=== PATIENT | male | born 1955 | race Caucasian/White ===

== ENCOUNTER 2017-12-13 22:04 | Observation (INO) ==
--- NOTE | 2017-12-13 22:25 | Emergency Department Note ---
Disposition Clinical Impression: Near syncope Disposition: Still a Patient Referrals: Africa Alarcon, COUNTER MOLDER [Primary Care Provider] - General Adult HPI - General Chief complaint: ED Dizziness Stated complaint: chest pain Time Seen by Provider: 12/13/17 22:16 Source: patient Limitations: no limitations - History of Present Illness HPI Narrative: Attestation note ED attending note I examined this patient and my medical decision-making was reviewed with the emergency medicine resident Dr. Hola Chung. I agree with the documented findings, disposition and treatment plan as described except to the extent set forth below. Briefly: 62-year-old male brought in by EMS for near syncope. Patient who was at a football [employer] [place] [employer] felt poorly for the past several days with some lightheadedness feels like it is "ringing" whether he opens or closes eyes takes his glasses on and off. Said he recently for the past year had a chemical stress test which was negative at [facility]. Patient had EKG read without Cardiologic assistance shows no acute ischemic changes. Patient to get head CT troponin screening labs chest x-ray. Admission anticipated. Disposition pending. Pain Scale: 8 - Related Data Home Medications Medication Instructions Recorded Confirmed Albuterol Sulfate [Proair Hfa] 2 puff IH Q4H PRN 07/24/16 07/24/16 Atorvastatin Calcium [Lipitor] 20 mg PO DAILY 07/24/16 07/24/16 Colesevelam HCl [Welchol] 625 mg PO TID 07/24/16 07/24/16 Desipramine [Norpramine] 100 mg PO HS 07/24/16 07/24/16 Dicyclomine [Bentyl] 40 mg PO QID 07/24/16 07/24/16 Gabapentin [Neurontin] 600 mg PO TID 07/24/16 07/24/16 Ibuprofen [Motrin] 200 mg PO Q8H PRN 07/24/16 07/24/16 Niacin (24 HR) [Niaspan] 500 mg PO HS 07/24/16 07/24/16 OxyCODONE Immed Rel [Roxicodone 10 10 mg PO HS PRN 07/24/16 07/24/16 MG] Sucralfate [Carafate] 1 gm PO QIDAC 07/24/16 07/24/16 Tiotropium [Spiriva] 18 mcg IH 0700 07/24/16 07/24/16 Tizanidine HCl 8 mg PO HS PRN 07/24/16 07/24/16 diazePAM [Valium] 5 mg PO TID PRN 07/24/16 07/24/16 Allergies Allergy/AdvReac Type Severity Reaction Status Date / Time No Known Allergies Allergy Verified 07/24/16 08:13 Past Medical History - Past Medical History Medical history: Reports: arthritis, asthma, COPD, GERD, hyperlipidemia Surgical history: Reports: appendectomy, cholecystectomy, herniorrhaphy Psychiatric history: Reports: no psych history - Social History Smoking Status: Former smoker Smokeless Tobacco Status: No Alcohol use: Reports: occasionally Drug use: Reports: none Physical Exam - General Limitations: no limitations General appearance: alert, in no apparent distress Course Vital Signs Temperature 98.7 F 12/13/17 22:13 Pulse Rate 93 12/13/17 22:13 Respiratory Rate 13 12/13/17 22:13 Blood Pressure 151/113 12/13/17 22:13 O2 Sat by Pulse Oximetry 99 12/13/17 22:13 Temperature 98.7 F 12/13/17 22:13 Pulse Rate 93 12/13/17 22:13 Respiratory Rate 13 12/13/17 22:13 Blood Pressure 151/113 12/13/17 22:13 O2 Sat by Pulse Oximetry 99 12/13/17 22:13 Oxygen Delivery Oxygen Delivery Room Air
--- NOTE | 2017-12-13 22:26 | Emergency Department Note ---
Disposition Clinical Impression: Near syncope, Visual changes, Palpitations Disposition: Admitted As Inpatient Condition: Good Referrals: Africa Alarcon, LAMINATION TECHNICIAN [Primary Care Provider] - Forms: ED Satisfaction Letter Time of Disposition: 00:30 General Adult HPI - General Chief complaint: ED Dizziness Stated complaint: chest pain Time Seen by Provider: 12/13/17 22:16 Source: patient, EMS Mode of arrival: EMS Limitations: no limitations Nursing Notes Reviewed: Yes Vital Signs Reviewed: Yes - History of Present Illness HPI Narrative: Patient is a 62-year-old male with past medical history of Parkinson's, chronic tremors of the right upper extremity. He presents today due to concern for lightheadedness, near-syncope, visual changes, palpitations. Patient states that he was at an outside ballgame, had been cooking outside. He states that he sat down, was watching the game and then noticed that he started to have what he describes as "rain" in his vision. Denies black spots, says that it looks more like "hazy rain". Denies any other numbness, tingling, weakness. Denies any headache, fevers, chest pain, shortness of breath, nausea, vomiting, abdominal pain. Denies any slurred speech or facial droop. He does admit that he had some palpitations but denies any overt chest pain. He says that he felt lightheaded during this episode and felt as though he was going to pass out. The lightheadedness is now resolved but he still has visual changes and occasional palpitations. Denies any previous cardiac history. He had a negative stress test about a year ago at [facility]. Pain Scale: 8 - Related Data Home Medications Medication Instructions Recorded Confirmed Albuterol Sulfate [Proair Hfa] 2 puff IH Q4H PRN 07/24/16 07/24/16 Atorvastatin Calcium [Lipitor] 20 mg PO DAILY 07/24/16 07/24/16 Colesevelam HCl [Welchol] 625 mg PO TID 07/24/16 07/24/16 Desipramine [Norpramine] 100 mg PO HS 07/24/16 07/24/16 Dicyclomine [Bentyl] 40 mg PO QID 07/24/16 07/24/16 Gabapentin [Neurontin] 600 mg PO TID 07/24/16 07/24/16 Ibuprofen [Motrin] 200 mg PO Q8H PRN 07/24/16 07/24/16 Niacin (24 HR) [Niaspan] 500 mg PO HS 07/24/16 07/24/16 OxyCODONE Immed Rel [Roxicodone 10 10 mg PO HS PRN 07/24/16 07/24/16 MG] Sucralfate [Carafate] 1 gm PO QIDAC 07/24/16 07/24/16 Tiotropium [Spiriva] 18 mcg IH 0700 07/24/16 07/24/16 Tizanidine HCl 8 mg PO HS PRN 07/24/16 07/24/16 diazePAM [Valium] 5 mg PO TID PRN 07/24/16 07/24/16 Allergies Allergy/AdvReac Type Severity Reaction Status Date / Time No Known Allergies Allergy Verified 07/24/16 08:13 All systems ED: reviewed and negative except as stated. Constitutional: Denies: fever Eyes: Reports: vision change Cardiovascular: Reports: palpitations. Denies: chest pain Respiratory: Denies: cough, dyspnea Gastrointestinal: Denies: abdominal pain, nausea, vomiting, diarrhea Genitourinary: Denies: urgency, dysuria Neurological: Reports: other (light headedness). Denies: headache, weakness, numbness, paresthesias Past Medical History - Past Medical History Attestation: Yes The following information was validated with the patient. Medical history: Reports: arthritis, asthma, COPD, GERD, hyperlipidemia Surgical history: Reports: appendectomy, cholecystectomy, herniorrhaphy Psychiatric history: Reports: no psych history - Social History Smoking Status: Former smoker Smokeless Tobacco Status: No Alcohol use: Reports: occasionally Drug use: Reports: none Physical Exam - General Limitations: no limitations General appearance: alert, in no apparent distress - Head Head exam: atraumatic, normocephalic, normal inspection - Eye Eye exam: Present: normal appearance, PERRL, EOMI - ENT ENT exam: normal exam, normal oropharynx, mucous membranes moist - Neck Neck exam: Present: normal inspection, full ROM, trachea midline - Chest Chest inspection: Present: normal inspection, symmetric chest wall rise - Respiratory Respiratory exam: Present: normal lung sounds bilaterally - Cardiovascular Cardiovascular exam: Present: regular rate, normal rhythm, normal heart sounds - Abdominal Exam Abdominal exam: Present: soft, Non-Tender. Absent: tenderness, distention, guarding, rebound, rigidity - Extremities Exam Extremities exam: Present: normal inspection, full ROM. Absent: tenderness, pedal edema - Neurological Exam Neurological exam: Present: alert, oriented X3, CN II-XII intact - Expanded Neurological Exam Patient oriented to: Present: person, place, time Speech: Present: fluid speech Cranial nerves: EOM function (II, III, IV, ): Normal, facial sensation (V): Normal, facial palsy (VII): Normal, spinal accessory function (XI): Normal, tongue deviation (XII): Normal Cerebellar function: finger to nose: Normal Motor strength - LUE: 5/5 Motor strength - RUE: 5/5 Motor strength - LLE: 5/5 Motor strength - RLE: 5/5 Sensory exam upper extremity: light touch: Normal Sensory exam lower extremity: light touch: Normal Coma Scale Eye Opening: Spontaneous Coma Scale Motor Response: Obeys Commands Coma Scale Verbal Response: Oriented Coma Scale Total: 15 - Psychiatric Psychiatric exam: Present: normal mood, flat affect - Skin Skin exam: Present: warm, dry, intact, normal color Course Course Narrative: Patient was mildly hypertensive on presentation. Otherwise, the rest of the vitals were within normal limits. NIH of 0. Patient does have subjective visual change of "hazy rain" but no hemianopsia. Otherwise, the rest of the physical exam was within normal limits. No focal neurologic deficits. Patient' s extremity tremor on the right, this is chronic for the patient. EKG performed and showed normal sinus rhythm with no acute ST changes. Performed chest x-ray, basic blood work, troponin level. Also obtain CT of the head. Currently, patient feels very fatigued. We will likely have to admit for further workup for palpitations and near syncope, vision changes. 23:30 chest xray shows emphysematous changes. Otherwise, no other acute cardiac pulmonary process. Head CT negative for any acute intracranial process. Troponin negative. No other major lab abnormality. Will admit for further chest pain/near syncope workup, workup for vision changes that will likely require MRI for further assessment. Chest X-Ray 12/13/17 22:17 IMPRESSION: Low lung volumes with bibasilar vascular crowding and underaeration. Pneumonitis is a consideration. Pulmonary sequela typical of that seen with smoking, including emphysema. Correlate with clinical history. Calcific atherosclerotic disease aorta. D/ / Nahum Stern / Nahum Stern Interpreting Provider: Nahum Stern Head CT 12/13/17 22:17 IMPRESSION: No acute intracranial abnormality. D/ / Vitaliy Mccoy MD / Vitaliy Mccoy MD Interpreting Provider: Vitaliy Mccoy MD Vital Signs Temperature 98.7 F 12/13/17 22:13 Pulse Rate 93 12/13/17 22:13 Respiratory Rate 13 12/13/17 22:13 Blood Pressure 151/113 12/13/17 22:13 O2 Sat by Pulse Oximetry 99 12/13/17 22:13 Temperature 98.7 F 12/13/17 22:13 Pulse Rate 78 12/14/17 00:00 Respiratory Rate 14 12/14/17 00:00 Blood Pressure 137/76 12/14/17 00:00 O2 Sat by Pulse Oximetry 97 12/14/17 00:00 Oxygen Delivery Oxygen Delivery Nasal Cannula Medical Decision Making - [facility] Narrative Medical decision making narrative: Patient was mildly hypertensive on presentation. Otherwise, the rest of the vitals were within normal limits. NIH of 0. Patient does have subjective visual change of "hazy rain" but no hemianopsia. Otherwise, the rest of the physical exam was within normal limits. No focal neurologic deficits. Patient' s extremity tremor on the right, this is chronic for the patient. EKG performed and showed normal sinus rhythm with no acute ST changes. Performed chest x-ray, basic blood work, troponin level. Also obtain CT of the head. Currently, patient feels very fatigued. We will likely have to admit for further workup for palpitations and near syncope, vision changes. 23:30 chest xray shows emphysematous changes. Otherwise, no other acute cardiac pulmonary process. Head CT negative for any acute intracranial process. Troponin negative. No other major lab abnormality. Will admit for further chest pain/near syncope workup, workup for vision changes that will likely require MRI for further assessment. - Medical Records Medical records reviewed: Yes I reviewed the patient's medical records. - Lab Data Lab results reviewed: Yes I reviewed the patient's lab results. Result diagrams: 12/13/17 22:27 12/13/17 22:27 Lab Results 12/13/17 12/13/17 12/13/17 Range/Units 22:17 22:27 22:27 WBC 6.7 (4.3-11.1) K/mcL RBC 5.58 H (4.19-5.50) M/mcL Hgb 15.7 (12.9-16.9) g/dL Hct 46.3 (37.5-50.1) % MCV 83.0 (83.0-100.0) fL MCH 28.1 (28.0-33.3) pg MCHC 33.9 (31.6-35.5) g/dL RDW 14.6 H (11.5-14.5) % Plt Count 226 (140-400) K/mcL MPV 10.6 (9.4-12.4) fL Immature Gran % 0.3 (0-4) % Seg Neutrophils % 64.7 % Lymphocytes % 23.4 % Monocytes % 10.2 % Eosinophils % 1.0 % Basophils % 0.4 % Neutrophils # 4.3 (1.6-8.9) K/mcL Lymphocytes # 1.6 (0.6-4.6) K/mcL Monocytes # 0.7 (0.0-1.3) K/mcL Eosinophils # 0.1 (0.0-0.6) K/mcL Basophils # 0.0 (0.0-0.2) K/mcL PT 11.3 (9.4-12.1) Seconds INR 1.0 APTT 33.1 (26.0-36.0) Seconds Sodium 141 (136-145) mEq/L Potassium 3.5 (3.5-5.1) mEq/L Chloride 113 H (98-107) mEq/L Carbon Dioxide 19 L (23-29) mEq/L BUN 19 (8-23) mg/dL Creatinine 1.12 (0.70-1.30) mg/dL Est GFR ( Amer) > 60 (> 60) Est GFR (Non-Af Amer) > 60 (> 60) BUN/Creatinine Ratio 17 (6-26) Glucose 107 H (70-105) mg/dL Calculated Osmolality 295 (280-300) Calcium 9.4 (8.6-10.3) mg/dL Troponin I < 0.03 (< 0.04) ng/mL - Radiology Data Radiology results reviewed: Yes I reviewed the patient's radiology results. Chest X-Ray 12/13/17 22:17 IMPRESSION: Low lung volumes with bibasilar vascular crowding and underaeration. Pneumonitis is a consideration. Pulmonary sequela typical of that seen with smoking, including emphysema. Correlate with clinical history. Calcific atherosclerotic disease aorta. D/ / Nahum Stern / Nahum Stern Interpreting Provider: Nahum Stern Head CT 12/13/17 22:17 IMPRESSION: No acute intracranial abnormality. D/ / Vitaliy Mccoy MD / Vitaliy Mccoy MD Interpreting Provider: Vitaliy Mccoy MD - EKG Data EKG #1 EKG attestation: Yes I reviewed and interpreted this EKG. EKG results narrative: 12/13/2017 at 23:05. Normal sinus rhythm. Heart rate 92. KS 136. QRS 0.1. QTC 459. Normal axis. No acute ST elevation or depression. No obvious signs of Aujzf-Khgdwtruf-Pspbs or Brugada. Juan Jose - Juan Jose Situation: Demographics, MOA Background: Presenting Complaint, Relevant PMH, Meds, & Allergies Assessment: Vital Signs, Course and respsone to treatment, Exam Concerns, Patient/Family Expectation, Pertinant Lab Results Recommendation: Barrier(s) to disposition, Recommendation based on pending studies, treatments, or consults [email or web address].RBecky Report Given to: Dr. Shannen Ingram Repor Time: 00:30 NIH Stroke Scale - Level of Consciousness LOC: Alert - LOC Questions LOC Questions: Answers both correctly - LOC Commands LOC Commands: Performs both correctly - Best Gaze Best Gaze: Normal - Visual Visual: No visual loss - Facial Palsy Facial Palsy: Normal - Motor Arms Motor Arm-Left: No drift for 10 seconds Motor Arm-Right: No drift for 10 seconds - Motor Legs Motor Leg-Left: No drift for 5 seconds Motor Leg-Right: No drift for 5 seconds - Limb Ataxia Limb Ataxia: Absent of affected limb too weak to perform exam - Sensory Sensory: Normal - Best Language Best Language: No aphasia - Dysarthria Dysarthria: Normal - Extinction and Inattention Extinction and Inattention: Normal - NIHSS Total Score NIHSS Total Score: 0
[2017-12-13 22:35] LABS: Basophils % 0.4 %; Eosinophils # 0.1 K/mcL (0.0-0.6); Hematocrit 46.3 % (37.5-50.1); Hemoglobin 15.7 g/dL (12.9-16.9); Immature Granulocytes % 0.3 % (0-4); Lymphocytes # 1.6 K/mcL (0.6-4.6); Lymphocytes % 23.4 %; Mean Corpuscular HGB Conc 33.9 g/dL (31.6-35.5); Mean Corpuscular Hemoglobin 28.1 pg (28.0-33.3); Mean Platelet Volume 10.6 fL (9.4-12.4); Monocytes # 0.7 K/mcL (0.0-1.3); Monocytes % 10.2 %; Neutrophils # 4.3 K/mcL (1.6-8.9); Platelet Count 226 K/mcL (140-400); Red Blood Count 5.58 M/mcL (4.19-5.50); Red Cell Distribution Width 14.6 % (11.5-14.5); Segmented Neutrophils % 64.7 %
[2017-12-13 22:41] LABS: Prothrombin Time 11.3 Seconds (9.4-12.1)
[2017-12-13 22:44] LABS: Activated Partial Thrombo Time 33.1 Seconds (26.0-36.0)
[2017-12-13 22:57] LABS: BUN/Creatinine Ratio 17 (6-26); Blood Urea Nitrogen 19 mg/dL (8-23); Calcium 9.4 mg/dL (8.6-10.3); Carbon Dioxide 19 mEq/L (23-29); Chloride 113 mEq/L (98-107); Glucose 107 mg/dL (70-105); Osmolality,Calculated 295 (280-300); Potassium 3.5 mEq/L (3.5-5.1); Sodium 141 mEq/L (136-145); Troponin I < 0.03 ng/mL (< 0.04); eGFR For Non-African Americans > 60 (> 60)
[2017-12-14] MEDS ORDERED: Naloxone 0.4 MG/ML INJ IVP PRN ×2 (02:15→03:13)
[2017-12-14] MEDS ORDERED: tiZANidine 4 MG TABLET PO PRN (03:42)
[2017-12-14] MEDS ORDERED: Acetaminophen/Aspirin/Caffeine TABLET PO PRN (03:46)
--- NOTE | 2017-12-14 03:58 | Internal Med History&Physical ---
Addendum entered and electronically signed by Virginia De La Rosa DO 12/14/17 10: 19: Will not consult cardiology at this time as there is no evidence of cardiac issues. Consider consult if echocardiogram returns are concerning. Original Note: Date of Encounter: 12/14/17 Time of Encounter: 02:45 Internal Medicine - H&P: HPI Chief complaint: vision changes Admitted From: Home Plans for Post Hospital Care: Home History of present illness: Mr. Ann is a 62 year old male who presents to ED with a complaint of vision changes. It occured this evening and have been constant. 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 He has never experienced this in the past. He describes himself feeling like he was "floating " but denies feeling of dizziness, lightheadedness, LOC. His vision changes he describes as "it looks like it is raining" and is still present. While he was driving home, he did start to become confused and feels like his speech is slurred but his has not noticed this. He denies any symptoms of numbness, tingling, paresthesias, fevers, chills, nausea, vomiting. In the ED, head CT was performed and showed no acute process. Vitals and labs were unremarkable except for mild tachycardia in the 90s. EKG shows NSR with no evidence of ST changes. Of note, within the past year, he has had a Pharm stress in [place] which he states was wnl. Echocardiogram done at [facility] he states was significant for mild diastolic dysfunction. He can not remember why he has had these tests performed but denies any cardiac history other than HLD. PMHx include parkinsons disease, HLD, GERD, ?COPD Past Med Surg Social Fam HX - Past Medical History Medical history: arthritis, asthma, COPD, GERD, hyperlipidemia Additional medical history: ARREGUIN. 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 Left Knee. Left rotator cuff - Social History Smoking Status: Former smoker Smokeless Tobacco Status: No Alcohol use: none Drug use: none - Family History Mother Living Status: Still Living Internal Medicine - H&P: Meds Albuterol Sulfate [Proair Hfa] 2 puff IH Q4H PRN 07/24/16 [History] Atorvastatin Calcium [Lipitor] 20 mg PO DAILY 07/24/16 [History] Desipramine [Norpramine] 100 mg PO HS 07/24/16 [History] Dicyclomine [Bentyl] 40 mg PO QID 07/24/16 [History] Gabapentin [Neurontin] 600 mg PO TID 07/24/16 [History] Niacin (24 HR) [Niaspan] 500 mg PO HS 07/24/16 [History] Tizanidine HCl 8 mg PO HS PRN 07/24/16 [History] diazePAM [Valium] 5 mg PO TID PRN 07/24/16 [History] Cevimeline HCl [Evoxac] 30 mg PO TID 12/14/17 [History] Meloxicam [Mobic] 15 mg PO DAILY 12/14/17 [History] Promethazine [Phenergan] 25 mg PO Q6HR PRN 12/14/17 [History] Topiramate [Topamax] 50 mg PO BID 12/14/17 [History] rOPINIRole [Requip] 1 mg PO TID 12/14/17 [History] 3 Allergy/AdvReac Type Severity Reaction Status Date / Time No Known Allergies Allergy Verified 07/24/16 08:13 All Systems PM: A 10-system review of systems was performed and is negative for pertinent findings except as documented above in the HPI. - Constitutional Constitutional: excessive sweating, night sweats, no chills, no fever(s), no lethargy, no weakness - EENT Eyes: change in vision, no decreased night vision, no diplopia, no loss of vision, no pain Ears: as per HPI Nose, mouth and throat: as per HPI - Cardiovascular Cardiovascular ROS IM: palpitations, no chest pain, no diaphoresis, no dyspnea, no dyspnea on exertion, no edema, no irregular heart rhythm, no lightheadedness , no syncope - Respiratory Respiratory: no cough, no dyspnea, no dyspnea on exertion, no wheezing - Gastrointestinal Gastrointestinal: no abdominal pain, no nausea, no vomiting - Musculoskeletal Musculoskeletal ROS IM: no myalgias, no numbness, no tingling - Neurological Neurological ROS: confusion, disequilibrium, headache(s) (chronic), lack of coordination, tremor(s) (RUE, chronic), no dizziness, no focal weakness, no numbness, no paresthesias, no radicular pain, no tingling, no vertigo, no weakness - Constitutional Vitals: Temp Pulse Resp BP Pulse Ox 97.8 F 81 18 175/115 99 12/14/17 01:58 12/14/17 01:58 12/14/17 01:58 12/14/17 02:00 12/14/17 02:23 General appearance: Present: A&O X 3, pleasant, answers questions appropriately Exam: as below - Head Head exam: Present: atraumatic, normal inspection, normocephalic - Eye Eye exam: Present: EOMI, normal appearance, PERRL. Absent: nystagmus, scleral icterus Pupils: Present: normal accommodation, PERRL - ENT ENT exam: Present: mucous membranes moist - Neck Neck exam general surgery: Present: normal inspection, supple, trachea midline - Respiratory Respiratory exam: Present: CTAB. Absent: accessory muscle use, rales, respiratory distress, rhonchi, wheezes - Cardiovascular Cardiovascular exam: Present: RRR, +S1, +S2. Absent: diastolic murmur, systolic murmur - GI/Abdominal GI/Abdominal exam: Present: normal bowel sounds, soft. Absent: tenderness - Extremities Exam Extremities exam: Present: normal inspection, radial pulses palpable and symmetrical. Absent: cyanotic, pedal edema, tenderness - Neurological Exam Neurological exam: Present: alert, CN II-XII intact, oriented X3, strengths equal and symetr throughout. Absent: no focal deficits, pronater drift, facial droop, speech deficit Additional comments: sensory defecit on right face but states this is chronic - Expanded Neurological Exam Neuro motor strength exam: LUE: 5, RUE: 5, LLE: 4, RLE: 5 - Psychiatric Psychiatric exam: Present: anxious - Skin Skin exam: Present: dry, warm Internal Med - H&P Results - Labs CBC & Chem 7: 12/14/17 04:42 12/14/17 04:42 - Assessment and plan (1) Visual changes Current Visit: Yes Status: Acute Assessment and plan: Unclear etiology at this time--possibly d/t embolic/ischemic event, consider medication interactions. Described as looking like it's raining. Sudden onset this evening. Vision change unresolved at this time. Head CT negative for acute intracranial abnormalities Will order MRI, pending. . Workup for possible cardiovascular origin--serial troponins (first troponin negative), echocardiogram--had echo @ [facility] within the last year, pt was told it was a very minor dystolic dysfunction. Will obtain cartotid ultrasound Consult to cardiology and neurology, appreciate recommendations. (2) Hypertension Current Visit: Yes Status: Acute Assessment and plan: Denies h/o HTN. Checks BP at home and is normally 120's systolic / 80's diastolic. Hypertensive on arrival, remains hypertensive with recent reading 163/92 Will not add medication at this time as ischemic event is in the differential and will allow for permissive HTN Qualifiers: Hypertension type: unspecified Qualified Code(s): I10 - Essential (primary ) hypertension (3) Palpitations Current Visit: Yes Status: Acute Assessment and plan: EKG shows NSR, regular rate, no acute ST elevations or depressions Initial troponin negative, will trend Check TSH Continuous cardiac monitoring, will obtain echocardiogram Cardiology consult (4) Parkinson's disease Current Visit: Yes Status: Acute Assessment and plan: Questionable history, follow with neurologist as outpatient Patient states he has a resting tremor and this can be attributed to PD per neurologist. Will continue home ropinerol (5) Hyperlipidemia Current Visit: Yes Status: Chronic Assessment and plan: Continue atorvastatin 20mg Check lipid panel Qualifiers: Hyperlipidemia type: unspecified Qualified Code(s): E78.5 - Hyperlipidemia , unspecified (6) COPD (chronic obstructive pulmonary disease) Current Visit: Yes Status: Chronic Assessment and plan: Former tobacco use, quit in 1994, 2 1/2 PPD x 20 years PFTs in 2017 show mild restrictive airway disease Continue home albuterol inhaler PRN Does not appear to be in acute exacerbation Qualifiers: COPD type: unspecified COPD Qualified Code(s): J44.9 - Chronic obstructive pulmonary disease, unspecified (7) DVT prophylaxis Current Visit: Yes Status: Acute Assessment and plan: Subcutaneous heparin 5,000 units Q12H - Time Spent With Patient Total time spent is greater than 50% in coordination of care (as documented) at patient's floor/unit and/or counseling patient:
--- NOTE | 2017-12-14 04:42 | Event Note ---
Date of Encounter: 12/14/17 Time of Encounter: 04:18 Patient seen and examined. Case discussed with resident. Please see history of present illness for further details. In short patient is a 62-year-old male with a past medical history of migraines, COPD, cervical spondylosis without myelopathy and possible Parkinson's disease who presents after having acute symptoms of what he describes as an out of body experience and visual disturbances characterized as seeing a haziness in front of his eyes as if it is raining. Symptoms started earlier this evening while the patient was seated watching a light football game. Symptoms are associated with palpitations and a sensation that his heart was to come out of his chest. He did note some unsteadiness on his feet when he was walking to his car. He checked his blood pressure when he got home he states that his systolic was in the 160s with a diastolic over 100. After patient arrived to the ED, he was afebrile, hemodynamically stable though his diastolic blood pressure was subsequent measures found to be over 100. No focal findings on physical examination. Cranial nerves intact. Patient does have a right arm tremor at baseline. Labs were unremarkable except for a bicarbonate of 19. EKG and CT scans of the head were unremarkable. Chest x-ray just above emphysematous changes. Unclear etiology of patient's current clinical symptoms though are currently persistent and ongoing. No evidence of an underlying infectious etiology. The only metabolic derangement on his laboratory workup is a low bicarbonate which is unusual in the setting of patient with smoking history and documented COPD. Given the patient's history of migraines this may be a variation of a vestibular migraine given his reported out of body experience and visual disturbances. However, we will obtain MRI to rule out a posterior vertebral vascular event. We will obtain echocardiogram, bilateral carotid duplex. Q 4 neuro checks. Consider neurology consultation morning.
[2017-12-14] MEDS ORDERED: Aspirin 325 MG TABLET PO ONE (05:22)
[2017-12-14 05:27] LABS: Basophils # 0.1 K/mcL (0.0-0.2); Basophils % 0.8 %; Eosinophils # 0.2 K/mcL (0.0-0.6); Eosinophils % 2.6 %; Hemoglobin 15.3 g/dL (12.9-16.9); Immature Granulocytes % 0.2 % (0-4); Lymphocytes # 1.8 K/mcL (0.6-4.6); Mean Corpuscular HGB Conc 34.8 g/dL (31.6-35.5); Mean Corpuscular Hemoglobin 28.7 pg (28.0-33.3); Mean Corpuscular Volume 82.4 fL (83.0-100.0); Mean Platelet Volume 10.9 fL (9.4-12.4); Monocytes # 0.7 K/mcL (0.0-1.3); Monocytes % 10.3 %; Neutrophils # 3.9 K/mcL (1.6-8.9); Platelet Count 214 K/mcL (140-400); Red Blood Count 5.34 M/mcL (4.19-5.50); Segmented Neutrophils % 59.1 %
[2017-12-14 05:49] LABS: Alanine Aminotransferase 22 Units/L (7-52); Albumin 4.4 g/dL (3.5-5.7); Albumin/Globulin Ratio 1.9 (1.1-2.2); Alkaline Phosphatase 157 Units/L (34-104); Aspartate Amino Transferase 19 Units/L (13-39); BUN/Creatinine Ratio 17 (6-26); Bilirubin,Total 0.7 mg/dL (0.3-1.0); Blood Urea Nitrogen 20 mg/dL (8-23); Calcium 9.1 mg/dL (8.6-10.3); Carbon Dioxide 20 mEq/L (23-29); Chloride 113 mEq/L (98-107); Globulin 2.3 g/dL (2.4-3.5); Glucose 120 mg/dL (70-105); Osmolality,Calculated 296 (280-300); Potassium 3.2 mEq/L (3.5-5.1); Sodium 141 mEq/L (136-145); Total Protein 6.7 g/dL (6.4-8.9); eGFR For Non-African Americans > 60 (> 60)
[2017-12-14 05:51] LABS: Chol/HDL Ratio 2.7 (0-4.9); Magnesium 2.2 mg/dL (1.6-2.6)
[2017-12-14] MEDS ORDERED: *HR* Heparin 5,000 UNIT/ML VIAL SQ SCH (06:00)
[2017-12-14 06:04] LABS: Thyroid Stimulating Hormone 1.694 mcIU/mL (0.340-5.600)
[2017-12-14] MEDS ORDERED: Topiramate 25 MG TABLET PO SCH (09:00)
[2017-12-14] MEDS: rOPINIRole 1 MG TABLET PO SCH ×2 (09:19→17:40)
[2017-12-14] MEDS: Gabapentin 300 MG CAPSULE PO SCH ×2 (09:20→17:40)
[2017-12-14] MEDS: CEVIMELINE HCL PO SCH ×2 (09:20→17:40)
[2017-12-14] MEDS ORDERED: diazePAM 5 MG TABLET PO PRN (10:33)
[2017-12-14] MEDS ORDERED: Isovue-370 500 ML INFUS..BTL IV ONE (10:38)
--- NOTE | 2017-12-14 10:39 | Internal Med Progress Note ---
Hospitalist Progress Note - Encounter Date of Encounter: 12/14/17 Time of Encounter: 10:34 - Subjective Interval History: No acute events. Patient states symptoms have improved. - Exam Vitals: Temp Pulse Resp BP Pulse Ox 97.8 F 69 16 151/113 95 12/14/17 08:40 12/14/17 08:40 12/14/17 08:40 12/14/17 08:40 12/14/17 08:40 Exam: Gen: NAD, AAO x3 HEENT: NC/AT, MMM, CN II-XII in tact, PERRLA, EOMI CVS: RRR Lungs: CTAB Ext: resting tremor of arm, sensation in tact, gait cannot be assessed. - Assessment and Plan (1) Visual changes Current Visit: Yes Status: Acute Assessment and Plan: Unclear etiology at this time--possibly d/t embolic/ischemic event, consider medication interactions. Described as looking like it's raining. Sudden onset this evening. Vision change unresolved at this time. Head CT negative for acute intracranial abnormalities MRI negative had echo @ the [facility] within the last year, pt was told it was a very minor dystolic dysfunction. Discussed with Neurology. MRI negative, symptoms are resolved. These can be from Parkinson's disease. Plan to get CTA neck rule out stenosis. If negative , and cardiac workup negative, can be discharged today with outpatient followup. (2) Palpitations Current Visit: Yes Status: Acute Assessment and Plan: EKG shows NSR, regular rate, no acute ST elevations or depressions Troponin neg x2 TSH wnl Continuous cardiac monitoring Echocardiogram pending. (3) Hyperlipidemia Current Visit: Yes Status: Chronic Assessment and Plan: Continue atorvastatin 20mg Lipid panel today fairly unremarkable. (4) COPD (chronic obstructive pulmonary disease) Current Visit: Yes Status: Chronic Assessment and Plan: Former tobacco use, quit in 1994, 2 1/2 PPD x 20 years PFTs in 2017 show mild restrictive airway disease Continue home albuterol inhaler PRN Does not appear to be in acute exacerbation (5) Parkinson's disease Current Visit: Yes Status: Acute Assessment and Plan: Questionable history, follow with neurologist as outpatient Patient states he has a resting tremor and this can be attributed to PD per neurologist. Will continue home ropinerol (6) Hypertension Current Visit: Yes Status: Acute Assessment and Plan: Denies h/o HTN. Checks BP at home and is normally 120's systolic / 80's diastolic. Remains hypertensive here. Will benefit from starting low dose lisinopril. Potassium runs low and this may be a good choice for him. Likely discharge with 12 weeks worth and PCP can decide if he should remain on medication. (7) DVT prophylaxis Current Visit: Yes Status: Acute Assessment and Plan: Subcutaneous heparin 5,000 units Q12H - Time Spent with Patient Total time spent is greater than 50% in coordination of care (as documented) at patient's floor/unit and/or counseling patient: Internal Medicine: Result - Labs CBC & Chem 7: 12/14/17 04:42 12/14/17 04:42 Labs: Short CBC 12/14/17 Range/Units 04:42 WBC 6.5 (4.3-11.1) K/mcL Hgb 15.3 (12.9-16.9) g/dL Hct 44.0 (37.5-50.1) % Plt Count 214 (140-400) K/mcL Neutrophils # 3.9 (1.6-8.9) K/mcL BMP 12/14/17 04:42 Sodium 141 Potassium 3.2 L Chloride 113 H Carbon Dioxide 20 L BUN 20 Creatinine 1.16 Glucose 120 H Calcium 9.1 Cardiac Enzymes 12/14/17 Range/Units 04:42 Troponin I < 0.03 (< 0.04) ng/mL Liver Function 12/14/17 Range/Units 04:42 Total Bilirubin 0.7 (0.3-1.0) mg/dL AST 19 (13-39) Units/L ALT 22 (7-52) Units/L Alkaline Phosphatase 157 H (34-104) Units/L Albumin 4.4 (3.5-5.7) g/dL - ABG Interpretation ABG results: PT/INR, D-dimer PT 11.3 Seconds (9.4-12.1) 12/13/17 22:17 - Impressions Impressions Brain MRI 12/14/17 05:23 IMPRESSION: No acute abnormality. D/ / Parth Belcher MD / Parth Belcher MD Interpreting Provider: Parth Belcher MD Consult Discharge Plan - Plan Referrals: Africa Alarcon, ELECTRIC ACCOUNTING MACHINE OPERATOR [Primary Care Provider] - (3) Hyperlipidemia Qualifiers: Hyperlipidemia type: unspecified Qualified Code(s): E78.5 - Hyperlipidemia, unspecified (4) COPD (chronic obstructive pulmonary disease) Qualifiers: COPD type: unspecified COPD Qualified Code(s): J44.9 - Chronic obstructive pulmonary disease, unspecified (6) Hypertension Qualifiers: Hypertension type: unspecified Qualified Code(s): I10 - Essential (primary) hypertension
[2017-12-14 16:01] VITALS: BP 128/78
--- NOTE | 2017-12-14 18:10 | Discharge Summary ---
- NOTES TO OUTPATIENT PROVIDER Notes to Outpatient Provider: - Follow-up with blood pressure and BMP. - Follow -up symptoms with Neurology. Orders not resulted at time of discharge: Pending orders 12/14/17 06:00 ECG 12 lead ECG [ECG] AM 0600 Date of Encounter: 12/14/17 Time of Encounter: 18:08 - Discharge Diagnosis (1) Visual changes Priority: Primary Status: Acute Assessment and Plan: Unclear etiology at this time--possibly d/t embolic/ischemic event, consider medication interactions. Described as looking like it's raining. Sudden onset this evening. Vision change unresolved at this time. Head CT negative for acute intracranial abnormalities MRI negative had echo @ [facility] within the last year, pt was told it was a very minor dystolic dysfunction. Discussed with Neurology. MRI negative, symptoms are resolved. These can be from Parkinson's disease. Plan to get CTA neck rule out stenosis. If negative , and cardiac workup negative, can be discharged today with outpatient followup. (2) Palpitations Priority: Secondary Status: Acute (3) Hyperlipidemia Priority: Secondary Status: Chronic Qualifiers: Hyperlipidemia type: unspecified Qualified Code(s): E78.5 - Hyperlipidemia , unspecified (4) COPD (chronic obstructive pulmonary disease) Priority: Secondary Status: Chronic Qualifiers: COPD type: unspecified COPD Qualified Code(s): J44.9 - Chronic obstructive pulmonary disease, unspecified (5) Parkinson's disease Priority: Secondary Status: Acute (6) Hypertension Priority: Secondary Status: Acute Qualifiers: Hypertension type: unspecified Qualified Code(s): I10 - Essential (primary ) hypertension (7) DVT prophylaxis Priority: Secondary Status: Acute Hospital course: Mr. Ann is a 62 year old male who presents to ED with a complaint of vision changes. It occurred this evening and have been constant. 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 He has never experienced this in the past. He describes himself feeling like he was "floating " but denies feeling of dizziness, lightheadedness, LOC. His vision changes he describes as "it looks like it is raining" and is still present. While he was driving home, he did start to become confused and feels like his speech is slurred but his has not noticed this. He denies any symptoms of numbness, tingling, paresthesias, fevers, chills, nausea, vomiting. In the ED, head CT was performed and showed no acute process. Vitals and labs were unremarkable except for mild tachycardia in the 90s. EKG shows NSR with no evidence of ST changes. Of note, within the past year, he has had a Pharm stress in [place] which he states was wnl. Echocardiogram done at [facility] he states was significant for mild diastolic dysfunction. He can not remember why he has had these tests performed but denies any cardiac history other than HLD. He was admitted for TIA/CVA rule out and cardiac workup. An MRI of the head was done and showed no acute process. CTA of neck was done that showed no significant stenosis. Patient symptoms were resolved. Troponin was trended and were negative. TSH was within normal limits. Echocardiogram was done here and was unremarkable with an LVEF of 65% with no significant dysfunction or structure abnormalities. We called the on-call neurologist who reviewed and since MRI and CTA angio negative, he is safe to discharge with close follow-up with his Neurologist at [place]. He will be sent with 5 mg lisinopril for elevated BP running 150s-170s/80s-110s. It improved with starting low dose lisinopril. - Time Spent with Patient Total time spent providing and/or coordinating discharge services: - Discharge Medications Prescriptions: Lisinopril [Zestril] 5 mg PO DAILY #30 tablet Home Medications: Albuterol Sulfate [Proair Hfa] 2 puff IH Q4H PRN 07/24/16 [History] Atorvastatin Calcium [Lipitor] 20 mg PO DAILY 07/24/16 [History] Desipramine [Norpramine] 100 mg PO HS 07/24/16 [History] Dicyclomine [Bentyl] 40 mg PO QID 07/24/16 [History] Gabapentin [Neurontin] 600 mg PO TID 07/24/16 [History] Niacin (24 HR) [Niaspan] 500 mg PO HS 07/24/16 [History] Tizanidine HCl 8 mg PO HS PRN 07/24/16 [History] diazePAM [Valium] 5 mg PO TID PRN 07/24/16 [History] Cevimeline HCl [Evoxac] 30 mg PO TID 12/14/17 [History] Lisinopril [Zestril] 5 mg PO DAILY #30 tablet 12/14/17 [Rx] Meloxicam [Mobic] 15 mg PO DAILY 12/14/17 [History] Promethazine [Phenergan] 25 mg PO Q6HR PRN 12/14/17 [History] Topiramate [Topamax] 50 mg PO BID 12/14/17 [History] rOPINIRole [Requip] 1 mg PO TID 12/14/17 [History] Allergies/Adverse Reactions: 3 Allergy/AdvReac Type Severity Reaction Status Date / Time No Known Allergies Allergy Verified 07/24/16 08:13 Date of admission: 12/14/17 01:28 Primary care physician: Africa Alarcon CNP Consults: 12/14/17 03:48 Consult to Neurology [CONS] Routine Consulting Provider: Neurology [facility] Reason for Consult: New, persistent vision changes Call Completed: No Discharging clinician: Almaz Watters - Constitutional Vitals: Temp Pulse Resp BP Pulse Ox 98.8 F 64 17 128/78 95 12/14/17 15:00 12/14/17 15:00 12/14/17 15:00 12/14/17 15:00 12/14/17 15:00 General appearance: Present: A&O X 3, pleasant, answers questions appropriately Exam: Gen: NAD, AAO x3 HEENT: NC/AT, MMM, CN II-XII in tact, PERRLA, EOMI CVS: RRR Lungs: CTAB Ext: resting tremor of arm, sensation in tact, gait cannot be assessed. - Patient Status Disposition: Home, Self-Care Condition: Good Functional capacity at discharge: independent ambulation Overall status at discharge: patient is back to baseline - Discharge Instructions Follow Up With: Africa Alarcon CNP [Primary Care Provider] - - Diet and Activity Activity: return to work once cleared by your PCP/specialist Diet: advance to your usual diet
[2017-12-14] MEDS ORDERED: Niacin (24 HR) 500 MG TAB.ER.24H PO SCH (21:00)
== END 2017-12-14 19:25 | disposition home or self-care (01) ==
LOC: 2NENU 22:04 → EMEROOARM 22:04 → 2NENU 12-14 01:48
PROVIDERS: ADMIT Internal Medicine; ATTEND Internal Medicine

== ENCOUNTER 2017-12-27 05:41 | Observation (INO) ==
[2017-12-27] MEDS ORDERED: Ondansetron 4 MG/2 ML VIAL IVP ONE (05:51)
[2017-12-27] MEDS ORDERED: *HR* FentaNYL (PF) 100 MCG/2 ML VIAL IVP ONE ×3 (05:51→06:58)
[2017-12-27] MEDS ORDERED: Isovue-370 500 ML INFUS..BTL IV ONE (05:52)
--- NOTE | 2017-12-27 05:56 | Emergency Department Note ---
Disposition Clinical Impression: Abdominal pain Qualifiers: Abdominal location: right lower quadrant Qualified Code(s): R10.31 - Right lower quadrant pain Disposition: Still a Patient Condition: Fair Forms: ED Satisfaction Letter, Work/School Release Abdominal Pain HPI - General Chief Complaint: ED Abdominal Pain Stated Complaint: Abdominal Pain Time Seen by Provider: 12/27/17 05:44 Source: patient, family Nursing Notes Reviewed: Yes Vital Signs Reviewed: Yes - History of Present Illness HPI Narrative: 62-year-old male past medical history of cholecystectomy, appendectomy, hypertension. This emergency department with 1 day of right lower quadrant abdominal pain, has not been able to have a bowel movement in the last 3 days. Has COPD, but does not currently smoke. Patient denies any history of coronary artery disease or peripheral arterial disease. Pain Scale: 10 - Related Data Home Medications Medication Instructions Recorded Confirmed Albuterol Sulfate [Proair Hfa] 2 puff IH Q4H PRN 07/24/16 12/14/17 Atorvastatin Calcium [Lipitor] 20 mg PO DAILY 07/24/16 12/14/17 Desipramine [Norpramine] 100 mg PO HS 07/24/16 12/14/17 Dicyclomine [Bentyl] 40 mg PO QID 07/24/16 12/14/17 Gabapentin [Neurontin] 600 mg PO TID 07/24/16 12/14/17 Niacin (24 HR) [Niaspan] 500 mg PO HS 07/24/16 12/14/17 Tizanidine HCl 8 mg PO HS PRN 07/24/16 12/14/17 diazePAM [Valium] 5 mg PO TID PRN 07/24/16 12/14/17 Cevimeline HCl [Evoxac] 30 mg PO TID 12/14/17 12/14/17 Meloxicam [Mobic] 15 mg PO DAILY 12/14/17 12/14/17 Promethazine [Phenergan] 25 mg PO Q6HR PRN 12/14/17 12/14/17 Topiramate [Topamax] 50 mg PO BID 12/14/17 12/14/17 rOPINIRole [Requip] 1 mg PO TID 12/14/17 12/14/17 Previous Rx's Medication Instructions Recorded Lisinopril [Zestril] 5 mg PO DAILY #30 tablet 12/14/17 Allergies Allergy/AdvReac Type Severity Reaction Status Date / Time No Known Allergies Allergy Verified 12/27/17 05:47 All systems ED: reviewed and negative except as stated. Review of Systems: As Per HPI Constitutional: Denies: fever Cardiovascular: Denies: chest pain Respiratory: Denies: dyspnea Gastrointestinal: Reports: abdominal pain, nausea, constipation. Denies: vomiting, melena, hematochezia Genitourinary: Denies: urgency, dysuria, frequency Musculoskeletal: Denies: back pain Integumentary: Denies: rash Neurological: Denies: headache, weakness Abdominal Pain PMH - Past Medical History Medical history: Reports: arthritis, asthma, COPD, GERD, hyperlipidemia, hypertension Male Surgical History: Reports: appendectomy, cholecystectomy Psychiatric history: Reports: no psych history - Social History Smoking status: Former smoker Alcohol use: Reports: none Drug use: Reports: none Physical Exam - General Limitations: no limitations General appearance: alert, in no apparent distress - Head Head exam: normocephalic - Eye Eye exam: Present: EOMI - ENT ENT exam: normal oropharynx - Neck Neck exam: Present: trachea midline - Chest Chest inspection: Present: symmetric chest wall rise - Respiratory Respiratory exam: Present: normal lung sounds bilaterally. Absent: respiratory distress, accessory muscle use - Cardiovascular Cardiovascular exam: Present: normal rhythm, tachycardia, normal heart sounds - Abdominal Exam Abdominal exam: Present: soft, tenderness, rebound. Absent: distention, guarding, rigidity Abdominal tenderness: Present: RLQ, moderate - Extremities Exam Extremities exam: Present: normal capillary refill - Back Exam Back exam: Present: full ROM - Neurological Exam Neurological exam: Present: alert, oriented X3 - Psychiatric Psychiatric exam: Present: normal affect, normal mood - Skin Skin exam: Present: warm, dry, intact, normal color. Absent: rash Course Vital Signs Temperature 97.5 F L 12/27/17 05:47 Pulse Rate 104 12/27/17 05:47 Respiratory Rate 22 12/27/17 05:47 Blood Pressure 154/110 12/27/17 05:47 O2 Sat by Pulse Oximetry 98 12/27/17 05:47 Temperature 97.5 F L 12/27/17 05:47 Pulse Rate 86 12/27/17 06:28 Respiratory Rate 22 12/27/17 06:28 Blood Pressure 130/83 12/27/17 06:28 O2 Sat by Pulse Oximetry 92 12/27/17 06:28 Oxygen Delivery Oxygen Delivery Room Air Abdominal Pain - MDM Narrative Medical decision making narrative: 62-year-old male presents emergency department with concern for right lower quadrant abdominal pain. At this time, the largest concern for this patient's small bowel obstruction or ureteral stone. We will obtain CT scan of the abdomen and pelvis with IV contrast. Patient is given pain medications well and Zofran, fluids. We will obtain urinalysis, CMP, CBC, lipase. Creatinine mildly elevated at 1.36. No leukocytosis. Hemoglobin is stable. Transfer of care for patient will be provided to Dr. Craven as CT scan of the abdomen and pelvis is currently pending. Vital Signs Temperature 97.5 F L 12/27/17 05:47 Pulse Rate 104 12/27/17 05:47 Respiratory Rate 22 12/27/17 05:47 Blood Pressure 154/110 12/27/17 05:47 O2 Sat by Pulse Oximetry 98 12/27/17 05:47 Temperature 97.5 F L 12/27/17 05:47 Pulse Rate 104 12/27/17 05:47 Respiratory Rate 22 12/27/17 05:47 Blood Pressure 154/110 12/27/17 05:47 O2 Sat by Pulse Oximetry 98 12/27/17 05:47 Oxygen Delivery Oxygen Delivery Room Air - Lab Data Result diagrams: 12/27/17 05:50 12/27/17 05:50 Lab Results 12/27/17 12/27/17 Range/Units 05:50 05:50 WBC 8.2 (4.3-11.1) K/mcL RBC 5.65 H (4.19-5.50) M/mcL Hgb 16.1 (12.9-16.9) g/dL Hct 47.6 (37.5-50.1) % MCV 84.2 (83.0-100.0) fL MCH 28.5 (28.0-33.3) pg MCHC 33.8 (31.6-35.5) g/dL RDW 14.4 (11.5-14.5) % Plt Count 277 (140-400) K/mcL MPV 10.5 (9.4-12.4) fL Immature Gran % 0.4 (0-4) % Seg Neutrophils % 58.5 % Lymphocytes % 28.5 % Monocytes % 9.9 % Eosinophils % 1.8 % Basophils % 0.9 % Neutrophils # 4.8 (1.6-8.9) K/mcL Lymphocytes # 2.3 (0.6-4.6) K/mcL Monocytes # 0.8 (0.0-1.3) K/mcL Eosinophils # 0.2 (0.0-0.6) K/mcL Basophils # 0.1 (0.0-0.2) K/mcL Sodium 140 (136-145) mEq/L Potassium 3.8 (3.5-5.1) mEq/L Chloride 110 H (98-107) mEq/L Carbon Dioxide 21 L (23-29) mEq/L BUN 28 H (8-23) mg/dL Creatinine 1.36 H (0.70-1.30) mg/dL Est GFR ( Amer) > 60 (> 60) Est GFR (Non-Af Amer) 53 L (> 60) BUN/Creatinine Ratio 21 (6-26) Glucose 128 H (70-105) mg/dL Calculated Osmolality 297 (280-300) Calcium 9.5 (8.6-10.3) mg/dL Total Bilirubin 0.4 (0.3-1.0) mg/dL AST 22 (13-39) Units/L ALT 23 (7-52) Units/L Alkaline Phosphatase 174 H (34-104) Units/L Serum Total Protein 7.0 (6.4-8.9) g/dL Albumin 4.4 (3.5-5.7) g/dL Globulin 2.6 (2.4-3.5) g/dL Albumin/Globulin Ratio 1.7 (1.1-2.2) Lipase 27 (11-82) Units/L
[2017-12-27 06:12] LABS: Basophils # 0.1 K/mcL (0.0-0.2); Basophils % 0.9 %; Eosinophils # 0.2 K/mcL (0.0-0.6); Eosinophils % 1.8 %; Hematocrit 47.6 % (37.5-50.1); Hemoglobin 16.1 g/dL (12.9-16.9); Immature Granulocytes % 0.4 % (0-4); Lymphocytes # 2.3 K/mcL (0.6-4.6); Lymphocytes % 28.5 %; Mean Corpuscular HGB Conc 33.8 g/dL (31.6-35.5); Mean Corpuscular Hemoglobin 28.5 pg (28.0-33.3); Mean Corpuscular Volume 84.2 fL (83.0-100.0); Mean Platelet Volume 10.5 fL (9.4-12.4); Monocytes # 0.8 K/mcL (0.0-1.3); Monocytes % 9.9 %; Neutrophils # 4.8 K/mcL (1.6-8.9); Platelet Count 277 K/mcL (140-400); Red Blood Count 5.65 M/mcL (4.19-5.50); Red Cell Distribution Width 14.4 % (11.5-14.5); Segmented Neutrophils % 58.5 %
--- NOTE | 2017-12-27 06:17 | Emergency Department Note ---
Disposition Clinical Impression: Abdominal pain Qualifiers: Abdominal location: right lower quadrant Qualified Code(s): R10.31 - Right lower quadrant pain Disposition: Still a Patient Condition: Fair Forms: ED Satisfaction Letter, Work/School Release General Adult HPI - General Chief complaint: ED Abdominal Pain Stated complaint: Abdominal Pain Time Seen by Provider: 12/27/17 05:44 Source: patient, family Limitations: no limitations Nursing Notes Reviewed: Yes Vital Signs Reviewed: Yes - History of Present Illness Pain Scale: 10 - Related Data Home Medications Medication Instructions Recorded Confirmed Albuterol Sulfate [Proair Hfa] 2 puff IH Q4H PRN 07/24/16 12/14/17 Atorvastatin Calcium [Lipitor] 20 mg PO DAILY 07/24/16 12/14/17 Desipramine [Norpramine] 100 mg PO HS 07/24/16 12/14/17 Dicyclomine [Bentyl] 40 mg PO QID 07/24/16 12/14/17 Gabapentin [Neurontin] 600 mg PO TID 07/24/16 12/14/17 Niacin (24 HR) [Niaspan] 500 mg PO HS 07/24/16 12/14/17 Tizanidine HCl 8 mg PO HS PRN 07/24/16 12/14/17 diazePAM [Valium] 5 mg PO TID PRN 07/24/16 12/14/17 Cevimeline HCl [Evoxac] 30 mg PO TID 12/14/17 12/14/17 Meloxicam [Mobic] 15 mg PO DAILY 12/14/17 12/14/17 Promethazine [Phenergan] 25 mg PO Q6HR PRN 12/14/17 12/14/17 Topiramate [Topamax] 50 mg PO BID 12/14/17 12/14/17 rOPINIRole [Requip] 1 mg PO TID 12/14/17 12/14/17 Previous Rx's Medication Instructions Recorded Lisinopril [Zestril] 5 mg PO DAILY #30 tablet 12/14/17 Allergies Allergy/AdvReac Type Severity Reaction Status Date / Time No Known Allergies Allergy Verified 12/27/17 05:47 Constitutional: Denies: fever Cardiovascular: Denies: chest pain Respiratory: Denies: dyspnea Gastrointestinal: Reports: abdominal pain, nausea, constipation. Denies: vomiting, melena, hematochezia Genitourinary: Denies: urgency, dysuria, frequency Musculoskeletal: Denies: back pain Integumentary: Denies: rash Neurological: Denies: headache, weakness Past Medical History - Past Medical History Medical history: Reports: arthritis, asthma, COPD, GERD, hyperlipidemia, hypertension Surgical history: Reports: appendectomy, cholecystectomy, herniorrhaphy Psychiatric history: Reports: no psych history - Social History Smoking Status: Former smoker Smokeless Tobacco Status: No Alcohol use: Reports: none Drug use: Reports: none Physical Exam - General Limitations: no limitations General appearance: alert, in no apparent distress Course Vital Signs Temperature 97.5 F L 12/27/17 05:47 Pulse Rate 104 12/27/17 05:47 Respiratory Rate 22 12/27/17 05:47 Blood Pressure 154/110 12/27/17 05:47 O2 Sat by Pulse Oximetry 98 12/27/17 05:47 Temperature 97.5 F L 12/27/17 05:47 Pulse Rate 86 12/27/17 06:28 Respiratory Rate 22 12/27/17 06:28 Blood Pressure 130/83 12/27/17 06:28 O2 Sat by Pulse Oximetry 92 12/27/17 06:28 Oxygen Delivery Oxygen Delivery Room Air Medical Decision Making - Lab Data Result diagrams: 12/27/17 05:50 12/27/17 05:50 Lab Results 12/27/17 12/27/17 Range/Units 05:50 05:50 WBC 8.2 (4.3-11.1) K/mcL RBC 5.65 H (4.19-5.50) M/mcL Hgb 16.1 (12.9-16.9) g/dL Hct 47.6 (37.5-50.1) % MCV 84.2 (83.0-100.0) fL MCH 28.5 (28.0-33.3) pg MCHC 33.8 (31.6-35.5) g/dL RDW 14.4 (11.5-14.5) % Plt Count 277 (140-400) K/mcL MPV 10.5 (9.4-12.4) fL Immature Gran % 0.4 (0-4) % Seg Neutrophils % 58.5 % Lymphocytes % 28.5 % Monocytes % 9.9 % Eosinophils % 1.8 % Basophils % 0.9 % Neutrophils # 4.8 (1.6-8.9) K/mcL Lymphocytes # 2.3 (0.6-4.6) K/mcL Monocytes # 0.8 (0.0-1.3) K/mcL Eosinophils # 0.2 (0.0-0.6) K/mcL Basophils # 0.1 (0.0-0.2) K/mcL Sodium 140 (136-145) mEq/L Potassium 3.8 (3.5-5.1) mEq/L Chloride 110 H (98-107) mEq/L Carbon Dioxide 21 L (23-29) mEq/L BUN 28 H (8-23) mg/dL Creatinine 1.36 H (0.70-1.30) mg/dL Est GFR ( Amer) > 60 (> 60) Est GFR (Non-Af Amer) 53 L (> 60) BUN/Creatinine Ratio 21 (6-26) Glucose 128 H (70-105) mg/dL Calculated Osmolality 297 (280-300) Calcium 9.5 (8.6-10.3) mg/dL Total Bilirubin 0.4 (0.3-1.0) mg/dL AST 22 (13-39) Units/L ALT 23 (7-52) Units/L Alkaline Phosphatase 174 H (34-104) Units/L Serum Total Protein 7.0 (6.4-8.9) g/dL Albumin 4.4 (3.5-5.7) g/dL Globulin 2.6 (2.4-3.5) g/dL Albumin/Globulin Ratio 1.7 (1.1-2.2) Lipase 27 (11-82) Units/L Attestation Statement - Attestation Attestation: I, Torsten Castaneda MD, personally evaluated this patient and discussed their management with the resident physician. I reviewed the resident's note and agree with the documented findings, medical decision making, and plan of care. 62-year-old male presents to the emergency department with a complaint of right lower quadrant abdominal pain for 1 day prior to arrival. Onset was gradual and the pain has gotten progressively worse. The pain has not migrated or moved. There has been some nausea but no vomiting. No fever. Some anorexia. Patient states he has not had a bowel movement for 3 days and has not passed any gas since then. The bowel movement at that time was watery diarrhea. Prior history of appendectomy and cholecystectomy. No flank pain or dysuria. No gross hematuria. No melena, hematemesis, or hematochezia. He reports that he has had a bowel obstruction in the past but he does not remember the pain being near this bad. On examination patient is a well-developed well-nourished male in no acute distress. He does appear to be in moderate discomfort. Patient is alert and oriented 3. There is no cyanosis or diaphoresis. Breath sounds are clear and equal bilaterally. Heart regular rate and rhythm. Abdomen is soft with markedly decreased bowel sounds. Moderate right lower quadrant tenderness on direct palpation with no guarding or rebound tenderness. No CVA tenderness. Mild abdominal distention. Labs reviewed. CT of the abdomen and pelvis was ordered and at shift change is pending. At shift change patient is signed out to the oncoming daysncft physician, Dr. Craven.
[2017-12-27 06:29] LABS: Alanine Aminotransferase 23 Units/L (7-52); Albumin 4.4 g/dL (3.5-5.7); Albumin/Globulin Ratio 1.7 (1.1-2.2); Alkaline Phosphatase 174 Units/L (34-104); Aspartate Amino Transferase 22 Units/L (13-39); BUN/Creatinine Ratio 21 (6-26); Bilirubin,Total 0.4 mg/dL (0.3-1.0); Blood Urea Nitrogen 28 mg/dL (8-23); Calcium 9.5 mg/dL (8.6-10.3); Carbon Dioxide 21 mEq/L (23-29); Chloride 110 mEq/L (98-107); Globulin 2.6 g/dL (2.4-3.5); Glucose 128 mg/dL (70-105); Lipase 27 Units/L (11-82); Osmolality,Calculated 297 (280-300); Potassium 3.8 mEq/L (3.5-5.1); Sodium 140 mEq/L (136-145); eGFR For Non-African Americans 53 (> 60)
--- NOTE | 2017-12-27 06:59 | Emergency Department Note ---
Disposition Clinical Impression: Kidney stone on right side, Renal colic on right side Abdominal pain Qualifiers: Abdominal location: right lower quadrant Qualified Code(s): R10.31 - Right lower quadrant pain Disposition: Admitted As Inpatient Condition: Fair Referrals: Africa Alarcon, [facility] [Primary Care Provider] - Forms: ED Satisfaction Letter, Work/School Release Time of Disposition: 09:13 General Adult HPI - General Chief complaint: ED Abdominal Pain Stated complaint: Abdominal Pain Time Seen by Provider: 12/27/17 05:44 Source: patient, family Limitations: no limitations - History of Present Illness Pain Scale: 10 - Related Data Home Medications Medication Instructions Recorded Confirmed Albuterol Sulfate [Proair Hfa] 2 puff IH Q4H PRN 07/24/16 12/14/17 Atorvastatin Calcium [Lipitor] 20 mg PO DAILY 07/24/16 12/14/17 Desipramine [Norpramine] 100 mg PO HS 07/24/16 12/14/17 Dicyclomine [Bentyl] 40 mg PO QID 07/24/16 12/14/17 Gabapentin [Neurontin] 600 mg PO TID 07/24/16 12/14/17 Niacin (24 HR) [Niaspan] 500 mg PO HS 07/24/16 12/14/17 Tizanidine HCl 8 mg PO HS PRN 07/24/16 12/14/17 diazePAM [Valium] 5 mg PO TID PRN 07/24/16 12/14/17 Cevimeline HCl [Evoxac] 30 mg PO TID 12/14/17 12/14/17 Meloxicam [Mobic] 15 mg PO DAILY 12/14/17 12/14/17 Promethazine [Phenergan] 25 mg PO Q6HR PRN 12/14/17 12/14/17 Topiramate [Topamax] 50 mg PO BID 12/14/17 12/14/17 rOPINIRole [Requip] 1 mg PO TID 12/14/17 12/14/17 Previous Rx's Medication Instructions Recorded Lisinopril [Zestril] 5 mg PO DAILY #30 tablet 12/14/17 Allergies Allergy/AdvReac Type Severity Reaction Status Date / Time No Known Allergies Allergy Verified 12/27/17 05:47 Constitutional: Denies: fever Cardiovascular: Denies: chest pain Respiratory: Denies: dyspnea Gastrointestinal: Reports: abdominal pain, nausea, constipation. Denies: vomiting, melena, hematochezia Genitourinary: Denies: urgency, dysuria, frequency Musculoskeletal: Denies: back pain Integumentary: Denies: rash Neurological: Denies: headache, weakness Past Medical History - Past Medical History Medical history: Reports: arthritis, asthma, COPD, GERD, hyperlipidemia, hypertension Surgical history: Reports: appendectomy, cholecystectomy, herniorrhaphy Psychiatric history: Reports: no psych history - Social History Smoking Status: Former smoker Smokeless Tobacco Status: No Alcohol use: Reports: none Drug use: Reports: none Physical Exam - General Limitations: no limitations General appearance: alert, in no apparent distress Course Vital Signs Temperature 97.5 F L 12/27/17 05:47 Pulse Rate 104 12/27/17 05:47 Respiratory Rate 22 12/27/17 05:47 Blood Pressure 154/110 12/27/17 05:47 O2 Sat by Pulse Oximetry 98 12/27/17 05:47 Temperature 97.5 F L 12/27/17 05:47 Pulse Rate 96 12/27/17 08:30 Respiratory Rate 20 12/27/17 08:30 Blood Pressure 151/84 12/27/17 08:30 O2 Sat by Pulse Oximetry 95 12/27/17 08:30 Oxygen Delivery Oxygen Delivery Room Air Medical Decision Making - Lab Data Result diagrams: 12/27/17 05:50 12/27/17 05:50 Lab Results 12/27/17 12/27/17 12/27/17 Range/Units 05:50 05:50 07:17 WBC 8.2 (4.3-11.1) K/mcL RBC 5.65 H (4.19-5.50) M/mcL Hgb 16.1 (12.9-16.9) g/dL Hct 47.6 (37.5-50.1) % MCV 84.2 (83.0-100.0) fL MCH 28.5 (28.0-33.3) pg MCHC 33.8 (31.6-35.5) g/dL RDW 14.4 (11.5-14.5) % Plt Count 277 (140-400) K/mcL MPV 10.5 (9.4-12.4) fL Immature Gran % 0.4 (0-4) % Seg Neutrophils % 58.5 % Lymphocytes % 28.5 % Monocytes % 9.9 % Eosinophils % 1.8 % Basophils % 0.9 % Neutrophils # 4.8 (1.6-8.9) K/mcL Lymphocytes # 2.3 (0.6-4.6) K/mcL Monocytes # 0.8 (0.0-1.3) K/mcL Eosinophils # 0.2 (0.0-0.6) K/mcL Basophils # 0.1 (0.0-0.2) K/mcL Sodium 140 (136-145) mEq/L Potassium 3.8 (3.5-5.1) mEq/L Chloride 110 H (98-107) mEq/L Carbon Dioxide 21 L (23-29) mEq/L BUN 28 H (8-23) mg/dL Creatinine 1.36 H (0.70-1.30) mg/dL Est GFR ( Amer) > 60 (> 60) Est GFR (Non-Af Amer) 53 L (> 60) BUN/Creatinine Ratio 21 (6-26) Glucose 128 H (70-105) mg/dL Calculated Osmolality 297 (280-300) Calcium 9.5 (8.6-10.3) mg/dL Total Bilirubin 0.4 (0.3-1.0) mg/dL AST 22 (13-39) Units/L ALT 23 (7-52) Units/L Alkaline Phosphatase 174 H (34-104) Units/L Serum Total Protein 7.0 (6.4-8.9) g/dL Albumin 4.4 (3.5-5.7) g/dL Globulin 2.6 (2.4-3.5) g/dL Albumin/Globulin Ratio 1.7 (1.1-2.2) Lipase 27 (11-82) Units/L Urine Color Yellow (Yellow) Urine Clarity Clear (Clear) Urine pH 5.5 (5.0-8.0) pH Units Ur Specific [place] > 1.030 H (1.010-1.025) Urine Protein Negative (Neg-Trace) mg/dL Urine Glucose (UA) Normal (Normal) mg/dL Urine Ketones Negative (Negative) mg/dL Urine Blood Negative (Negative) Urine Nitrite Negative (Negative) Urine Bilirubin Negative (Negative) Urine Urobilinogen Normal (Normal) mg/dL Ur Leukocyte Esterase Negative (Negative) Ur Culture Indicated? NO (NO) Attestation Statement - Attestation Attestation: Care of patient assumed from Dr. Castaneda at [address] abdomen and pelvis and urinalysis. Patient has a remote history of cholecystectomy and appendectomy presents with right-sided abdominal pain. He is uncomfortable appearing on exam. Additional analgesics ordered. Labs are resulted at this time have been reviewed by me. CT abdomen and pelvis pending 09:12: CT results discussed with patient. Pain persists despite multiple doses of fentanyl. 7 dissociative ketamine administered. Patient's pain persist. I will request admission to the urology service versus admission to the medicine service with neurology consultation due to intractable pain.
[2017-12-27 07:31] LABS: Bilirubin,Urine Negative (Negative); Blood,Urine Negative (Negative); Clarity,Urine Clear (Clear); Color,Urine Yellow (Yellow); Glucose,Urine (UA) Normal (Normal); Ketones,Urine Negative (Negative); Leukocyte Esterase,Urine Negative (Negative); Nitrite,Urine Negative (Negative); PH,Urine 5.5 pH Units (5.0-8.0); Protein,Urine Negative (Neg-Trace); Specific Gravity,Urine > 1.030 (1.010-1.025); Urobilinogen,Urine Normal (Normal)
[2017-12-27] MEDS ORDERED: Ketamine *HR* 20 MG in 0.9 % Sodium Chloride 100 ML IVPB ONE (07:51)
[2017-12-27] MEDS ORDERED: Promethazine 12.5 MG in 0.9 % Sodium Chloride 50 ML IVPB ONE (08:10)
[2017-12-27] MEDS ORDERED: OXYCODONE Oral CONC 10 MG/0.5 ML ORAL.SYG SL ONE (09:54)
[2017-12-27] MEDS ORDERED: *HR* HYDROcodone/Acet 5/325 mg TABLET PO PRN (10:13)
[2017-12-27] MEDS ORDERED: OXYCODONE Oral CONC 10 MG/0.5 ML ORAL.SYG SL PRN ×2 (10:13)
[2017-12-27] MEDS ORDERED: Acetaminophen 325 MG TABLET PO PRN (10:13)
[2017-12-27] MEDS ORDERED: Ondansetron 4 MG/2 ML VIAL IVP PRN (10:13)
[2017-12-27] MEDS ORDERED: Naloxone 0.4 MG/ML INJ IVP PRN (10:13)
[2017-12-27] MEDS ORDERED: *HR* Belladonna Alkaloids/Opium 60 MG RECTAL SUPPOSITORY RC PRN (10:13)
--- NOTE | 2017-12-27 10:20 | Urology History & Physical ---
<Lizy Robertson N - Last Filed: 12/27/17 10:17> Date of Encounter: 12/27/17 Time of Encounter: 10:00 Assessment and Plan (1) Right ureteral stone Current Visit: Yes Status: Acute Patient is a 62-year-old male who presents with a 5mm distal right ureteral stone at the UVJ. Patient has been unable to achieve adequate pain control in the emergency department. I discussed the risks and benefits of ureteroscopic stone extraction with the patient and his . Patient has verbalized understanding, consent has been signed, and he is prepared undergo a right ureteroscopic stone extraction with or without holmium laser lithotripsy, basket retrieval, and right ureteral stent placement. Patient will remain nothing by mouth. History of Present Illness Chief complaint: RLQ pain, nausea HPI: Mr. nAn is a 62 year old male who presents [facility] emergency department with complaints of severe abdominal pain, urinary hesitancy and nausea. Patient states he began having colicky abdominal pain last night, and at 2 AM this morning, the pain acutely worsened and became persistent. The patient presented to the emergency department and underwent a CT scan of abdomen and pelvis revealing a 5 mm distal right ureteral stone. Patient states this is his first renal stone, and he denies any known family history of renal stones. Patient states he started taking Topamax for migraine headaches approximately 2 months ago. Patient denies gross hematuria, dysuria, fever or chills. Past Med Surg Social Fam HX - Past Medical History Medical history: arthritis, asthma, COPD, GERD, hyperlipidemia, hypertension Additional medical history: ARREGUIN. 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 Left Knee. Left rotator cuff - Social History Smoking Status: Former smoker Smokeless Tobacco Status: No Alcohol use: none Drug use: none - Family History Mother Living Status: Still Living Medications and Allergies Albuterol Sulfate [Proair Hfa] 2 puff IH Q4H PRN 07/24/16 [History] Atorvastatin Calcium [Lipitor] 20 mg PO DAILY 07/24/16 [History] Desipramine [Norpramine] 100 mg PO HS 07/24/16 [History] Dicyclomine [Bentyl] 40 mg PO QID 05/09/17 [History] Gabapentin [Neurontin] 600 mg PO TID 07/24/16 [History] Niacin (24 HR) [Niaspan] 500 mg PO HS 07/24/16 [History] Tizanidine HCl 8 mg PO HS PRN 07/24/16 [History] diazePAM [Valium] 5 mg PO TID PRN 07/24/16 [History] Cevimeline HCl [Evoxac] 30 mg PO TID 12/14/17 [History] Lisinopril [Zestril] 5 mg PO DAILY #30 tablet 12/14/17 [Rx] Meloxicam [Mobic] 15 mg PO DAILY 12/14/17 [History] Promethazine [Phenergan] 25 mg PO Q6HR PRN 12/14/17 [History] Topiramate [Topamax] 50 mg PO BID 12/14/17 [History] rOPINIRole [Requip] 1 mg PO TID 12/14/17 [History] 3 Allergy/AdvReac Type Severity Reaction Status Date / Time No Known Allergies Allergy Verified 12/27/17 05:47 Review of Systems - Constitutional no chills, no fatigue, no fever(s) - EENT Nose, mouth and throat: no dizziness, no headache(s) - Cardiovascular no chest pain, no diaphoresis, no dyspnea - Respiratory no cough, no dyspnea - Gastrointestinal abdominal pain, nausea, no vomiting - Genitourinary flank pain (right ), urinary hesitancy, no difficulty urinating, no dysuria, no urinary frequency, no urinary incontinence, no urinary urgency - Musculoskeletal no back pain, no muscle weakness - Integumentary no erythema, no rash, no swelling - Neurological no confusion, no syncope - Psychiatric no anxiety, no confusion - Hematologic/Lymphatic no easy bleeding, no easy bruising - Allergic/Immunologic no throat swelling, no wheezing Exam Initial Vital Signs Temp Pulse Resp BP Pulse Ox 97.5 F L 104 22 154/110 98 12/27/17 05:47 12/27/17 05:47 12/27/17 05:47 12/27/17 05:47 12/27/17 05:47 - General physical appearance Present: well developed, no distress, severe pain - Eyes Present: PERRL, normal ocular movement - ENT Present: normal nares, no hearing loss, no congestion - Neck Present: no masses, trachea midline - Respiratory Present: normal respiratory effort - Cardiovascular Cardiovascular exam IM: RRR - Abdomen Abdomen: Present: soft, tender (RLQ and right flank pain ) - Genitourinary other (urine clear ) - Integumentary Present: no rash, no abnormal pigmentation - Neurologic Present: normal coordination - Musculoskeletal Present: other (no pedal edema ) Urology Results - Labs 12/27/17 05:50 12/27/17 05:50 Abnormal lab results RBC 5.65 M/mcL (4.19-5.50) H 12/27/17 05:50 Chloride 110 mEq/L (98-107) H 12/27/17 05:50 Carbon Dioxide 21 mEq/L (23-29) L 12/27/17 05:50 BUN 28 mg/dL (8-23) H 12/27/17 05:50 Creatinine 1.36 mg/dL (0.70-1.30) H 12/27/17 05:50 Est GFR (Non-Af Amer) 53 (> 60) L 12/27/17 05:50 Glucose 128 mg/dL (70-105) H 12/27/17 05:50 Alkaline Phosphatase 174 Units/L (34-104) H 12/27/17 05:50 Ur Specific [place] > 1.030 (1.010-1.025) H 12/27/17 07:17 All other labs normal. - Imaging CT scan - abdomen: report reviewed, image reviewed CT scan - pelvis: report reviewed, image reviewed <Lanre Fraser - Last Filed: 12/27/17 17:19> Date of Encounter: 12/27/17 Assessment and Plan (1) Right ureteral stone Current Visit: Yes Status: Acute agree with PA findings. plan for stone extraction in AM. procedure discussed History of Present Illness HPI: Mr. Ann is a 62 year old male Exam Initial Vital Signs Temp Pulse Resp BP Pulse Ox 97.5 F L 104 22 154/110 98 12/27/17 05:47 12/27/17 05:47 12/27/17 05:47 12/27/17 05:47 12/27/17 05:47 Urology Results - Labs 12/27/17 05:50 12/27/17 05:50 Abnormal lab results RBC 5.65 M/mcL (4.19-5.50) H 12/27/17 05:50 Chloride 110 mEq/L (98-107) H 12/27/17 05:50 Carbon Dioxide 21 mEq/L (23-29) L 12/27/17 05:50 BUN 28 mg/dL (8-23) H 12/27/17 05:50 Creatinine 1.36 mg/dL (0.70-1.30) H 12/27/17 05:50 Est GFR (Non-Af Amer) 53 (> 60) L 12/27/17 05:50 Glucose 128 mg/dL (70-105) H 12/27/17 05:50 POC Glucose 157 mg/dL (70-99) H 12/27/17 16:48 Alkaline Phosphatase 174 Units/L (34-104) H 12/27/17 05:50 Ur Specific [place] > 1.030 (1.010-1.025) H 12/27/17 07:17 All other labs normal.
[2017-12-27] MEDS: 0.9 % Sodium Chloride 1,000 ML IVC SCH ×2 (11:36→23:53)
[2017-12-27] MEDS: *HR* OxyCODONE Immed Rel 5 MG TABLET PO PRN (22:04)
[2017-12-28] MEDS: *HR* OxyCODONE Immed Rel 5 MG TABLET PO PRN (05:58)
[2017-12-28 06:48] LABS: Basophils % 0.5 %; Eosinophils # 0.2 K/mcL (0.0-0.6); Eosinophils % 2.9 %; Hematocrit 42.3 % (37.5-50.1); Immature Granulocytes % 0.2 % (0-4); Lymphocytes # 1.9 K/mcL (0.6-4.6); Lymphocytes % 34.3 %; Mean Corpuscular HGB Conc 33.6 g/dL (31.6-35.5); Mean Corpuscular Hemoglobin 28.6 pg (28.0-33.3); Mean Corpuscular Volume 85.1 fL (83.0-100.0); Mean Platelet Volume 10.7 fL (9.4-12.4); Monocytes # 0.6 K/mcL (0.0-1.3); Monocytes % 11.4 %; Neutrophils # 2.8 K/mcL (1.6-8.9); Platelet Count 211 K/mcL (140-400); Red Blood Count 4.97 M/mcL (4.19-5.50); Red Cell Distribution Width 14.7 % (11.5-14.5); Segmented Neutrophils % 50.7 %
[2017-12-28 06:57] LABS: Hemoglobin 14.2 g/dL (12.9-16.9)
[2017-12-28 07:06] LABS: BUN/Creatinine Ratio 17 (6-26); Blood Urea Nitrogen 19 mg/dL (8-23); Calcium 8.7 mg/dL (8.6-10.3); Carbon Dioxide 24 mEq/L (23-29); Chloride 110 mEq/L (98-107); Glucose 113 mg/dL (70-105); Osmolality,Calculated 293 (280-300); Potassium 3.9 mEq/L (3.5-5.1); Sodium 140 mEq/L (136-145); eGFR For Non-African Americans > 60 (> 60)
[2017-12-28] MEDS ORDERED: *HR* FentaNYL (PF) 100 MCG/2 ML VIAL ONE (07:12)
[2017-12-28] MEDS ORDERED: *HR* Midazolam HCl 2 MG/2 ML VIAL ONE (07:13)
[2017-12-28] MEDS ORDERED: *HR* Propofol 200 MG/20 ML VIAL IVP ONE (07:14)
[2017-12-28] MEDS ORDERED: Ondansetron 4 MG/2 ML VIAL ONE (07:17)
[2017-12-28] MEDS ORDERED: *HR* Succinylcholine 200 MG/10 ML VIAL IVP ONE (07:17)
[2017-12-28] MEDS ORDERED: Lidocaine -MPF 2% 2 ML VIAL ONE (07:17)
[2017-12-28] MEDS ORDERED: Lidocaine -MPF 4% 5 ML AMPUL ONE ×2 (07:17→07:18)
[2017-12-28] MEDS ORDERED: Dexamethasone 4 MG/ML VIAL ONE (07:17)
--- NOTE | 2017-12-28 07:26 | Anesthesia Evaluation PreOp ---
Date of Encounter: 12/28/17 Time of Encounter: 07:30 - Past History Planned Operation: Rt USE Cardiac History: HTN, Hyperlipidemia Pulmonary History: Former smoker, Asthma, COPD [place]OTH PI[place]ER History: Denies Any Significant HX Other Medical History: GERD, Other (IBS) Anesthesia History: No Prior Anesthetic Complications Alcohol Use: none Drug use: none Medications and Allergies Albuterol Sulfate [Proair Hfa] 2 puff IH Q4H PRN 07/24/16 [History] Atorvastatin Calcium [Lipitor] 20 mg PO DAILY 07/24/16 [History] Desipramine [Norpramine] 100 mg PO HS 07/24/16 [History] Dicyclomine [Bentyl] 40 mg PO QID 07/24/16 [History] Gabapentin [Neurontin] 600 mg PO TID 07/24/16 [History] Niacin (24 HR) [Niaspan] 500 mg PO HS 07/24/16 [History] Tizanidine HCl 8 mg PO HS PRN 07/24/16 [History] diazePAM [Valium] 5 mg PO TID PRN 07/24/16 [History] Cevimeline HCl [Evoxac] 30 mg PO TID 12/14/17 [History] Lisinopril [Zestril] 5 mg PO DAILY #30 tablet 12/14/17 [Rx] Meloxicam [Mobic] 15 mg PO DAILY 12/14/17 [History] Promethazine [Phenergan] 25 mg PO Q6HR PRN 12/14/17 [History] Topiramate [Topamax] 50 mg PO BID 12/14/17 [History] rOPINIRole [Requip] 1 mg PO TID 12/14/17 [History] 3 Allergy/AdvReac Type Severity Reaction Status Date / Time No Known Allergies Allergy Verified 12/27/17 05:47 - Meds/Allergy Pre-op Review Medications Reviewed: Yes Allergies Reviewed: Yes Beta Blockers on Current Med List: No Anesthesia Results - Labs 12/28/17 05:19 12/28/17 05:19 - Imaging EKG: report reviewed (SR) Additional studies: ECHO 2018 EF 65% Anesthesia Exam Vital Signs/O2 Sat/Glucose, Most Current Temp Pulse Resp BP Pulse Ox 12/28/17 06:55 98.1 F 68 14 121/71 93 12/28/17 04:41 97.7 F 73 14 152/75 92 Height: 5'6 Weight: 230 lbs NPO (# of Hours): MN Pain Scale: 0 - HEENT Pupil (Motor): Pupils equal, EOMI Mallampati: II Teeth: Poor dentition Oral Opening: Greater than 3 - CL[place] PI[place]ER LOC: Oriented [place] Motor: Normal RUE, Normal LUE, Normal RLE, Normal LLE, Normal Face [place] Sensory: Normal: RUE, LUE, RLE, LLE, Face - Cardiac Rhythm: Regular Murmur: None JVD: No Carotid Bruit: No - Pulmonary Breath Sounds: bilateral Clear Respiratory Effort: Symmetrical Anesthesia Assess/Plan ASA Score: 2 Modified Valentine Scale for Level of Consciousness: Cooperative, oriented, and tranquil Anesthetic Plan: General Monitoring Plan: Standard Monitors Recovery Plan: PACU (Discussed GA, agrees to proceed)
[2017-12-28] MEDS ORDERED: Albuterol 2.5 MG/3 ML NEBULIZER IH ONE (07:28)
[2017-12-28] MEDS ORDERED: Albuterol 2.5 MG/3 ML NEBULIZER ONE (07:31)
[2017-12-28] MEDS ORDERED: Isovue-300 50 ML VIAL IVP ONE (07:42)
[2017-12-28] MEDS ORDERED: Famotidine 20 MG/2 ML VIAL ONE (07:51)
--- NOTE | 2017-12-28 08:01 | Operative Note ---
Date of procedure: 12/28/17 Pre-op diagnosis: right ureteral stone Post-op diagnosis: same Procedure: right ureteroscopic stone extraction right retrograde pyelogram right JJ stent Anesthesia: GETA Surgeon: Lanre Fraser Was there an cleaner assistant present: No Estimated blood loss (cc): 0 Specimen: stone Condition: stable Disposition: PACU Procedure in Detail: PROCEDURE IN DETAIL: Patient was taken back to the operating room, positioned supine on the operating table. Anesthesia was applied without complication. They were moved into dorsal lithotomy. Careful attention was maintained to cushion all pressure points for patient's safety. They were prepped and draped in sterile fashion. Time-out was performed with the proper patient and procedure. A 21-[place] rigid cystoscope was inserted into the bladder without difficulty. Systematic examination of bladder revealed no abnormalities. The ureteral orifice was cannulated using a 5-[place] ureteral Catheter and a retrograde pyelogram was performed using Isovue. A filling defect was identified which corresponded to the stone. At that point, a zip wire was placed through the 5-[place] and confirmed in the renal pelvis with fluoroscopy. An 8-10 dilator was then placed over the zip wire to passively dilate the ureteral orifice. A semi-rigid ureteroscope was carefully inserted into the bladder and guided into the ureteral oriface. At that point, the stone was encountered and I was able to basket it out of the ureter with a 1.9 tipless basket without performing laser lithotripsy. All stone in the ureter was removed. A 4.8 x 26 ureteral stent was placed over the zip wire under fluoroscopy without complication. The bladder was drained along with the stone. It was collected and sent for stone analysis. The string was left attached to the stent and secured to the patient for easy removal in approximately 72 hours
[2017-12-28] MEDS ORDERED: CeFAZolin Syr 2,000MG/20 ML 2,000 MG/20 ML SYRINGE IVPB ONE (08:11)
[2017-12-28] MEDS ORDERED: *HR* OxyCODONE Immed Rel 5 MG TABLET PO PRN (08:20)
[2017-12-28] MEDS ORDERED: *HR* Promethazine 25 MG/ML VIAL IVP PRN (08:20)
[2017-12-28] MEDS ORDERED: *HR* HYDROmorphone (PF) 1 MG/ML SYRINGE IVP PRN (08:20)
[2017-12-28] MEDS ORDERED: Ondansetron 4 MG/2 ML VIAL IVP ONE (08:20)
--- NOTE | 2017-12-28 08:32 | Discharge Summary ---
Orders not resulted at time of discharge: Pending orders 12/28/17 XR KUB [XR] Routine XR fluoroscopy <1 hr [XR] Routine Date of Encounter: 12/28/17 Time of Encounter: 08:32 - Discharge Diagnosis (1) Right ureteral stone Priority: Primary Status: Resolved Comments: Status post stone extraction. Plan for discharge today. - Hospital Course Hospital course: Mr. Ann is a 62 year old male s/p stone extraction. plan for discharge today if pain is controlled - Time Spent with Patient Total time spent providing and/or coordinating discharge services: Less than 30 minutes Labs on day of discharge: Labs from last 24 hours 12/28/17 12/28/17 12/27/17 05:19 05:19 16:48 WBC 5.6 RBC 4.97 Hgb 14.2 D Hct 42.3 MCV 85.1 MCH 28.6 MCHC 33.6 RDW 14.7 H Plt Count 211 MPV 10.7 Immature Gran % 0.2 Seg Neutrophils % 50.7 Lymphocytes % 34.3 Monocytes % 11.4 Eosinophils % 2.9 Basophils % 0.5 Neutrophils # 2.8 Lymphocytes # 1.9 Monocytes # 0.6 Eosinophils # 0.2 Basophils # 0.0 Sodium 140 Potassium 3.9 Chloride 110 H Carbon Dioxide 24 BUN 19 Creatinine 1.14 Est GFR ( Amer) > 60 Est GFR (Non-Af Amer) > 60 BUN/Creatinine Ratio 17 Glucose 113 H POC Glucose 157 H Calculated Osmolality 293 Calcium 8.7 12/27/17 12:08 WBC RBC Hgb Hct MCV MCH MCHC RDW Plt Count MPV Immature Gran % Seg Neutrophils % Lymphocytes % Monocytes % Eosinophils % Basophils % Neutrophils # Lymphocytes # Monocytes # Eosinophils # Basophils # Sodium Potassium Chloride Carbon Dioxide BUN Creatinine Est GFR ( Amer) Est GFR (Non-Af Amer) BUN/Creatinine Ratio Glucose POC Glucose 125 H Calculated Osmolality Calcium - Discharge Medications Prescriptions: HYDROcodone/Acet 5/325 mg [[place] 5-325 mg] 1 tab PO Q6HR PRN 3 Days #10 tablet PRN Reason: Moderate Pain Home Medications: Albuterol Sulfate [Proair Hfa] 2 puff IH Q4H PRN 07/24/16 [History] Atorvastatin Calcium [Lipitor] 20 mg PO DAILY 07/24/16 [History] Desipramine [Norpramine] 100 mg PO HS 07/24/16 [History] Dicyclomine [Bentyl] 40 mg PO QID 07/24/16 [History] Gabapentin [Neurontin] 600 mg PO TID 07/24/16 [History] Niacin (24 HR) [Niaspan] 500 mg PO HS 07/24/16 [History] Tizanidine HCl 8 mg PO HS PRN 07/24/16 [History] diazePAM [Valium] 5 mg PO TID PRN 07/24/16 [History] Cevimeline HCl [Evoxac] 30 mg PO TID 12/14/17 [History] Lisinopril [Zestril] 5 mg PO DAILY #30 tablet 12/14/17 [Rx] Meloxicam [Mobic] 15 mg PO DAILY 12/14/17 [History] Promethazine [Phenergan] 25 mg PO Q6HR PRN 12/14/17 [History] Topiramate [Topamax] 50 mg PO BID 12/14/17 [History] rOPINIRole [Requip] 1 mg PO TID 12/14/17 [History] HYDROcodone/Acet 5/325 mg [[place] 5-325 mg] 1 tab PO Q6HR PRN 3 Days #10 tablet 12/28/17 [Rx] Allergies/Adverse Reactions: 3 Allergy/AdvReac Type Severity Reaction Status Date / Time No Known Allergies Allergy Verified 12/27/17 05:47 Date of admission: 12/27/17 09:27 Primary care physician: Africa Alarcon CNP Discharging clinician: Lanre Fraser Anticipated date of discharge: 12/28/17 Exam Initial Vital Signs Temp Pulse Resp BP Pulse Ox 97.5 F L 104 22 154/110 98 12/27/17 05:47 12/27/17 05:47 12/27/17 05:47 12/27/17 05:47 12/27/17 05:47 - General physical appearance Present: no distress - Patient Status Disposition: Home, Self-Care Condition: Good Functional capacity at discharge: independent ambulation Overall status at discharge: patient is progressing back to baseline - Discharge Instructions Follow Up With: Africa Alarcon CNP [Primary Care Provider] - Lanre Fraser MD [Partnered Physician] - (See additional instructions. ) Additional Instructions: Expect some stent discomfort including urgency, frequency, burning on urination , light blood in the urine. This is normal. Okay to remove stent at home on Saturday or come to the urology office for removal. Stent is removed by gently pulling on the string until the entire stent is out. After the stent is removed expect some increase in flank pain for 12-24 hours. It will resolve and this is normal. Call if symptoms are severe or fever over 101 degrees If stent is removed at home, follow-up in 4-6 weeks. OK to take OTC AZO for dysuria. Please resume all home medications. Please note I was unable to enter the information regarding medications because the screen was locked by another provider. - Diet and Activity Activity: increase activity as tolerated Diet: advance to your usual diet
--- NOTE | 2017-12-28 08:48 | Anesthesia Evaluation Post Op ---
Date of Encounter: 12/28/17 Time of Encounter: 08:50 - Vital Signs Vital Signs: Vital Signs/O2 Sat/Glucose, Most Current Temp Pulse Resp BP Pulse Ox 12/28/17 08:41 98.5 F 84 16 123/74 93 12/28/17 08:31 98.5 F 72 12 123/67 94 12/28/17 06:55 98.1 F 68 14 121/71 93 - Lungs Lungs: Clear Ascult./Percussion - Airway Airway: Non-obstructed - Cardiovascular Regular Rate - Mental Status Mental Status: Alert & Oriented, Answers Appropriately - Pain Pain Scale: 0 - Nausea Vomiting Nausea Vomiting: Not Present - Hydration Hydration: Ice chips - Discharge PostOp Status: Transfer Patient to floor
[2017-12-28 10:26] VITALS: BP 126/75
[2018-01-02 18:54] LABS: Calculi Mass 25 mg
== END 2017-12-28 11:10 | disposition home or self-care (01) ==
LOC: EMEROOARM 05:41 → 3ANU 05:41
PROVIDERS: ADMIT Urology; ATTEND Urology

== ENCOUNTER 2018-06-15 03:20 | Inpatient (IN) ==
[2018-06-15] MEDS ORDERED: 0.9 % Sodium Chloride 1,000 ML IVC ONE (03:35)
--- NOTE | 2018-06-15 03:47 | Emergency Department Note ---
Disposition Clinical Impression: Difficulty breathing, Tracheomalacia Chest pain Qualifiers: Chest pain type: unspecified Qualified Code(s): R07.9 - Chest pain, unspecified Disposition: Admitted As Inpatient Condition: Fair Referrals: Africa Alarcon CNP [Primary Care Provider] - Forms: ED Satisfaction Letter Time of Disposition: 06:59 SOB HPI - General Chief Complaint: ED Shortness of Breath/Dyspnea Stated Complaint: linda Time Seen by Provider: 06/15/18 03:34 Source: patient Mode of arrival: ambulatory Limitations: no limitations Nursing Notes Reviewed: Yes Vital Signs Reviewed: Yes - History of Present Illness 62 yo male with PMHx of tracheomalacia, COPD, and Parkinson's disease presents to the emergency department with the chief complaint of difficulty in breathing. He was recently released from [facility] with a diagnosis of pneumonia. He has been tachycardic since with HRs in the 120s to 160s. He wears oxygen at home and is usually on 3 L. Today he woke up from sleep and felt like he could not catch his breath even with the CPAP machine on. He states when he checked his oxygen saturation at this time it was 87%. He also complains of substernal c hest pain that has been constant since before his release at [facility]. He denies fevers, chills, abdominal pain, nausea, vomiting. - Related Data Home Medications Medication Instructions Recorded Confirmed Albuterol Sulfate [Proair Hfa] 2 puff IH Q4H PRN 07/24/16 12/27/17 Atorvastatin Calcium [Lipitor] 20 mg PO DAILY 07/24/16 12/27/17 Gabapentin [Neurontin] 600 mg PO TID 07/24/16 12/27/17 Niacin (24 HR) [Niaspan] 500 mg PO HS 07/24/16 12/27/17 Tizanidine HCl 8 mg PO HS PRN 07/24/16 12/27/17 Cevimeline HCl [Evoxac] 30 mg PO TID 12/14/17 12/27/17 rOPINIRole [Requip] 1 mg PO TID 12/14/17 12/27/17 Carbidopa/Levodopa [Carbidopa-Levo 1 each PO TID 06/15/18 06/15/18 25-100 mg Odt] Cyanocobalamin/Salcaprozat Sod 1,000 mcg PO DAILY 06/15/18 06/15/18 [Eligen B12] Fluticasone/Vilanterol [Breo 1 each IH DAILY 06/15/18 06/15/18 Ellipta 100-25 Mcg INH] Metoprolol [Lopressor] 25 mg PO DAILY 06/15/18 06/15/18 Previous Rx's Medication Instructions Recorded Lisinopril [Zestril] 5 mg PO DAILY #30 tablet 12/14/17 Allergies Allergy/AdvReac Type Severity Reaction Status Date / Time [place] Allergy See Verified 01/31/18 19:49 Comments [place] Allergy See Verified 01/31/18 19:49 Comments All systems ED: reviewed and negative except as stated. Review of Systems: As Per HPI Constitutional: Denies: fever, weakness Cardiovascular: Reports: chest pain, dyspnea on exertion. Denies: palpitations, edema, syncope Respiratory: Reports: cough, dyspnea. Denies: wheezes, hemoptysis Gastrointestinal: Denies: abdominal pain, nausea, vomiting, diarrhea Musculoskeletal: Denies: back pain, neck pain Integumentary: Denies: rash Neurological: Denies: headache, weakness, numbness, paresthesias Endocrine: Reports: fatigue Past Medical History - Past Medical History Attestation: Yes The following information was validated with the patient. Source: patient Medical history: Reports: arthritis, COPD, GERD, hyperlipidemia, hypertension, migraine Surgical history: Reports: appendectomy, cholecystectomy, herniorrhaphy Psychiatric history: Reports: no psych history - Social History Smoking Status: Former smoker Smokeless Tobacco Status: No Alcohol use: Reports: rarely Drug use: Reports: none Physical Exam - General Limitations: no limitations General appearance: alert, in no apparent distress - Head Head exam: atraumatic, normocephalic - Eye Eye exam: Present: normal appearance, EOMI - ENT ENT exam: normal exam, normal oropharynx - Neck Neck exam: Present: normal inspection. Absent: tenderness, lymphadenopathy - Chest Chest inspection: Present: normal inspection. Absent: tenderness - Respiratory Respiratory exam: Present: other (coarse end expiratory breath sounds) - Cardiovascular Cardiovascular exam: Present: normal rhythm, tachycardia - Abdominal Exam Abdominal exam: Present: soft, Non-Tender. Absent: distention, guarding, rebound, rigidity - Extremities Exam Extremities exam: Present: normal inspection. Absent: tenderness, pedal edema - Neurological Exam Neurological exam: Present: alert, oriented X3. Absent: motor sensory deficit - Psychiatric Psychiatric exam: Present: normal affect, normal mood - Skin Skin exam: Present: warm, dry, intact Course Vital Signs Temperature 98.3 F 06/15/18 03:28 Pulse Rate 124 06/15/18 03:28 Respiratory Rate 26 06/15/18 03:28 Blood Pressure 151/89 06/15/18 03:28 O2 Sat by Pulse Oximetry 100 06/15/18 03:28 Temperature 98.3 F 06/15/18 03:28 Pulse Rate 111 06/15/18 06:08 Respiratory Rate 22 06/15/18 06:08 Blood Pressure 128/81 06/15/18 06:08 O2 Sat by Pulse Oximetry 97 06/15/18 06:08 Oxygen Delivery Oxygen Delivery Nasal Cannula Shortness of Breath/Dyspnea - [facility] Narrative Medical decision making narrative: Patient presents with chest pain and difficulty breathing that has been constant and worsening since his discharge from [facility] on Saturday. This is concerning for ACS versus recurrent pneumonia or other pulmonary disease. We will obtain EKG, chest x-ray, basic lab work and give the patient a liter of fluids for his tachycardia. 0530 - patient's lab work was unremarkable. EKG shows sinus tachycardia without any other abnormalities. Chest x-ray did not demonstrate any acute cardiopulmonary process. Awaiting records from [facility] at this time. We will add on a d-dimer to rule out pulmonary embolus. 0545 - d-dimer has returned elevated. We will order the CT angiogram of the chest to rule out PE and after this is completed patient will be admitted to the hospitalist. 0700 - CTA is negative for PE. Hospitalist has been paged at this time. - Medical Records Medical records reviewed: Yes I reviewed the patient's medical records. - Lab Data Lab results reviewed: Yes I reviewed the patient's lab results. Result diagrams: 06/15/18 03:45 06/15/18 03:45 Lab Results 06/15/18 06/15/18 06/15/18 Range/Units 03:45 03:45 03:45 WBC 12.3 H (4.3-11.1) K/mcL RBC 5.53 H (4.19-5.50) M/mcL Hgb 15.8 (12.9-16.9) g/dL Hct 47.0 (37.5-50.1) % MCV 85.0 (83.0-100.0) fL MCH 28.6 (28.0-33.3) pg MCHC 33.6 (31.6-35.5) g/dL RDW 13.2 (11.5-14.5) % Plt Count 252 (140-400) K/mcL MPV 11.0 (9.4-12.4) fL Immature Gran % 0.9 (0-4) % Seg Neutrophils % 78.2 % Lymphocytes % 12.1 % Monocytes % 8.4 % Eosinophils % 0.2 % Basophils % 0.2 % Neutrophils # 9.6 H (1.6-8.9) K/mcL Lymphocytes # 1.5 (0.6-4.6) K/mcL Monocytes # 1.0 (0.0-1.3) K/mcL Eosinophils # 0.0 (0.0-0.6) K/mcL Basophils # 0.0 (0.0-0.2) K/mcL D-Dimer (0-500) ng/mLFEU Sodium 139 (136-145) mEq/L Potassium 3.6 (3.5-5.1) mEq/L Chloride 107 (98-107) mEq/L Carbon Dioxide 23 (23-29) mEq/L BUN 18 (8-23) mg/dL Creatinine 0.96 (0.70-1.30) mg/dL Est GFR ( Amer) > 60 (> 60) Est GFR (Non-Af Amer) > 60 (> 60) BUN/Creatinine Ratio 19 (6-26) Glucose 140 H (70-105) mg/dL Calculated Osmolality 292 (280-300) Lactic Acid 3.1 H (0.5-2.2) mmol/L Calcium 9.3 (8.6-10.3) mg/dL Troponin I < 0.03 (< 0.04) ng/mL 06/15/18 Range/Units 03:45 WBC (4.3-11.1) K/mcL RBC (4.19-5.50) M/mcL Hgb (12.9-16.9) g/dL Hct (37.5-50.1) % MCV (83.0-100.0) fL MCH (28.0-33.3) pg MCHC (31.6-35.5) g/dL RDW (11.5-14.5) % Plt Count (140-400) K/mcL MPV (9.4-12.4) fL Immature Gran % (0-4) % Seg Neutrophils % % Lymphocytes % % Monocytes % % Eosinophils % % Basophils % % Neutrophils # (1.6-8.9) K/mcL Lymphocytes # (0.6-4.6) K/mcL Monocytes # (0.0-1.3) K/mcL Eosinophils # (0.0-0.6) K/mcL Basophils # (0.0-0.2) K/mcL D-Dimer 1161 H (0-500) ng/mLFEU Sodium (136-145) mEq/L Potassium (3.5-5.1) mEq/L Chloride (98-107) mEq/L Carbon Dioxide (23-29) mEq/L BUN (8-23) mg/dL Creatinine (0.70-1.30) mg/dL Est GFR ( Amer) (> 60) Est GFR (Non-Af Amer) (> 60) BUN/Creatinine Ratio (6-26) Glucose (70-105) mg/dL Calculated Osmolality (280-300) Lactic Acid (0.5-2.2) mmol/L Calcium (8.6-10.3) mg/dL Troponin I (< 0.04) ng/mL - Radiology Data Radiology results reviewed: Yes I reviewed the patient's radiology results. - EKG Data EKG attestation: Yes I reviewed and interpreted this EKG. EKG results narrative: EKG obtained at 3:30 on 06/15/2018 Heart rate 1 22 bpm, IN interval 166, QRS duration 91, QT 307, QTC 438 Sinus tachycardia with late transition in the R-wave progression. No ST segment elevations or depressions. No other T-wave abnormalities. Unchanged from previous EKG dated 01/31/2018. Attestation Statement - Attestation Attestation: I, Veto Macdonald, examined this patient and my medical decision-making was reviewed with the SMASHER/PA/Advanced Practice Nurse/Resident Physician. I agree with the documented findings, disposition and treatment plan as described except to the extent set forth below. 62-year-old male presents emergency Department with concerns of tachypnea, tachycardia. Patient has a history of COPD, tracheomalacia and Parkinson's disease. Patient was recently diagnosed with pneumonia and treated at [facility]. Patient states he woke this morning abruptly with difficulty in breathing and stated that his CPAP was not helping with his respiratory distress. On initial evaluation the patient is tachycardic to 130s, he states And appears to have mild respiratory discomfort, he is satting 98% on pulse ox.
[2018-06-15 04:04] LABS: Basophils % 0.2 %; Eosinophils % 0.2 %; Hemoglobin 15.8 g/dL (12.9-16.9); Immature Granulocytes % 0.9 % (0-4); Lymphocytes # 1.5 K/mcL (0.6-4.6); Lymphocytes % 12.1 %; Mean Corpuscular HGB Conc 33.6 g/dL (31.6-35.5); Mean Corpuscular Hemoglobin 28.6 pg (28.0-33.3); Monocytes % 8.4 %; Neutrophils # 9.6 K/mcL (1.6-8.9); Platelet Count 252 K/mcL (140-400); Red Blood Count 5.53 M/mcL (4.19-5.50); Red Cell Distribution Width 13.2 % (11.5-14.5); Segmented Neutrophils % 78.2 %
[2018-06-15 04:24] LABS: BUN/Creatinine Ratio 19 (6-26); Blood Urea Nitrogen 18 mg/dL (8-23); Calcium 9.3 mg/dL (8.6-10.3); Carbon Dioxide 23 mEq/L (23-29); Chloride 107 mEq/L (98-107); Glucose 140 mg/dL (70-105); Osmolality,Calculated 292 (280-300); Potassium 3.6 mEq/L (3.5-5.1); Sodium 139 mEq/L (136-145); eGFR For Non-African Americans > 60 (> 60)
[2018-06-15 04:25] LABS: Troponin I < 0.03 ng/mL (< 0.04)
[2018-06-15] MEDS ORDERED: methylPREDNISolone 125 MG/2 ML VIAL IVP ONE (05:19)
[2018-06-15] MEDS ORDERED: Isovue-370 500 ML BOTTLE IVP ONE (05:41)
[2018-06-15] MEDS ORDERED: *HR* FentaNYL (PF) 100 MCG/2 ML VIAL IVP ONE (05:57)
[2018-06-15] MEDS ORDERED: Nitroglycerin 0.4 MG TAB.SUBL SL PRN (07:18)
[2018-06-15] MEDS ORDERED: Aspirin 81 MG TAB.CHEW PO ONE (07:18)
--- NOTE | 2018-06-15 09:41 | Internal Med History&Physical ---
Date of Encounter: 06/15/18 Time of Encounter: 09:41 Internal Medicine - H&P: HPI Chief complaint: sob History of present illness: 62 yo male with PMHx of tracheomalacia, COPD, and Parkinson's disease presents to the emergency department with SOB associated with cough and pleuritic chest pain. He was recently released from [place] with a diagnosis of pneumonia. It was noted to be tachycardic since with HRs in the 120s to 160s. He wears oxygen at home and is usually on 3 L. . Reported that today his difficulty of breathing was so severe that it did wake him up from sleep and when he checked his oxygen saturation at this time it was 87%. The patient was evaluated by the ER staff, chest x-ray revealed no significant abnormalities, both EKG and cardiac enzymes first set was was no significant abnormalities, he was admitted for further evaluation and management. Past Med Surg Social Fam HX - Past Medical History Medical history: arthritis, COPD, GERD, hyperlipidemia, hypertension, migraine Additional medical history: parkinsons. 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 Left Knee. Left rotator cuff - Social History Smoking Status: Former smoker Smokeless Tobacco Status: No Alcohol use: rarely Drug use: none - Family History Father Living Status: Still Living Hx Family Cardiac Disorders: Yes Hx Family Cancer: Yes Hx Family Endocrine Disorder: Yes (thyroid problems) Mother Living Status: Still Living Internal Medicine - H&P: Meds RX: Albuterol Sulfate [Proair Hfa] 2 puff IH Q4H PRN 07/24/16 [History] RX: Atorvastatin Calcium [Lipitor] 20 mg PO DAILY 07/24/16 [History] RX: Gabapentin [Neurontin] 600 mg PO TID 07/24/16 [History] RX: Niacin (24 HR) [Niaspan] 500 mg PO HS 07/24/16 [History] RX: Tizanidine HCl 8 mg PO HS PRN 07/24/16 [History] RX: Cevimeline HCl [Evoxac] 10 mg PO TID 12/14/17 [History] RX: Lisinopril [Zestril] 5 mg PO DAILY #30 tablet 12/14/17 [Rx] RX: rOPINIRole [Requip] 1 mg PO TID 12/14/17 [History] Carbidopa/Levodopa [Carbidopa-Levo 25-100 mg Odt] 1 each PO TID 06/15/18 [History] Cyanocobalamin/Salcaprozat Sod [Eligen B12] 1,000 mcg PO DAILY 06/15/18 [History] Fluticasone/Vilanterol [Breo Ellipta 100-25 Mcg INH] 1 each IH DAILY 06/15/18 [H istory] Metoprolol [Lopressor] 25 mg PO DAILY 06/15/18 [History] Allergy/AdvReac Type Severity Reaction Status Date / Time [place] Allergy See Verified 01/31/18 19:49 Comments [place] Allergy See Verified 01/31/18 19:49 Comments All Systems PM: A 10-system review of systems was performed and is negative for pertinent findi ngs except as documented above in the HPI. - Constitutional Constitutional: fatigue, malaise, weakness - Cardiovascular Cardiovascular ROS IM: chest pain, dyspnea - Respiratory Respiratory: dyspnea, no cough, no wheezing, no excessive phlegm production - Gastrointestinal Gastrointestinal: no abdominal pain, no diarrhea, no hematemesis, no he matochezia, no melena, no nausea, no vomiting - Integumentary Integumentary IM: no rash, no unusual bruising - Neurological Neurological ROS: no confusion, no convulsions, no focal weakness, no numbness, no tingling, no tremor(s) - Constitutional Vitals: Temp Pulse Resp BP Pulse Ox 98.0 F 113 14 143/85 94 06/15/18 08:39 06/15/18 08:39 06/15/18 08:39 06/15/18 08:39 06/15/18 08:39 General appearance: Present: A&O X 3 Exam: as below - Head Head exam: Present: atraumatic, normocephalic - Neck Neck exam general surgery: Present: supple, trachea midline. Absent: lymphadenopathy - Respiratory Respiratory exam: Absent: accessory muscle use, rales, rhonchi, wheezes - Cardiovascular Cardiovascular exam: Present: RRR, +S1, +S2, tachycardia. Absent: diastolic murmur, gallop, rubs, systolic murmur - GI/Abdominal GI/Abdominal exam: Present: normal bowel sounds, soft, no peritoneal signs. Absent: distended, tenderness - Extremities Exam Extremities exam: Present: warm, radial pulses palpable and symmetrical. Absent: calf tenderness, cyanotic, pedal edema Internal Med - H&P Results - Labs CBC & Chem 7: 06/15/18 03:45 06/15/18 03:45 Labs: Short CBC 06/15/18 Range/Units 03:45 WBC 12.3 H (4.3-11.1) K/mcL Hgb 15.8 (12.9-16.9) g/dL Hct 47.0 (37.5-50.1) % Plt Count 252 (140-400) K/mcL Neutrophils # 9.6 H (1.6-8.9) K/mcL BMP 06/15/18 03:45 Sodium 139 Potassium 3.6 Chloride 107 Carbon Dioxide 23 BUN 18 Creatinine 0.96 Glucose 140 H Calcium 9.3 Cardiac Enzymes 06/15/18 Range/Units 03:45 Troponin I < 0.03 (< 0.04) ng/mL - Impressions ITS Impressions Chest X-Ray 06/15/18 03:35 IMPRESSION: No acute process. Stable prominence of the interstitial markings Mild bibasilar atelectasis D/ / Mekhi Morse MD / Mekhi Morse MD Interpreting Provider: Mekhi Morse MD Chest CTA 06/15/18 05:41 IMPRESSION: No evidence of pulmonary embolism or acute pulmonary abnormality. Emphysema/COPD. D/ / Damaso Gallardo MD / Damaso Gallardo MD Interpreting Provider: Damaso Gallardo MD - Assessment and Plan (1) Difficulty breathing Current Visit: Yes Status: Acute Assessment and plan: SOB due to COPD exacerbation caused by URTI, allergen exposure, medication nonocompliance in the sitting of H/o Pneumonia - no infiltrate on CXR Chest pain with pleuritic component, less likely secondary to cardiac etiology PLAN: - Aerosols q 4 hr and PRN SOB - Solu-medrol 40 mg IV q 6 hr - O2 to keep SpO2 higher than 92% (SpO higher than 95% if CAD) - CBCD, BMP in AM - Sputum Gram stain, C+S - Robitussin 10 cc PO q 4 hr - Tylenol 650 mg PO q 4-6 hr PRN pain/fever - Heparin 5000 U SQ BID - Azithromycine 500 po daily (2) Hyperlipidemia Current Visit: No Status: Chronic Qualifiers: Hyperlipidemia type: unspecified Qualified Code(s): E78.5 - Hyperlipidemia, unspecified (3) Hypertension Current Visit: No Status: Acute Assessment and plan: We will continue home medication. Qualifiers: Hypertension type: unspecified Qualified Code(s): I10 - Essential (primary) hypertension (4) Tracheomalacia Current Visit: Yes Status: Acute (5) Chest pain Current Visit: Yes Status: Acute Assessment and plan: Chest pain is was pleuritic component, Less likely to continue to cardiac etiology, EKG was no significant abnormality, we will trend cardiac enzymes Qualifiers: Chest pain type: unspecified Qualified Code(s): R07.9 - Chest pain, unspecified (6) COPD (chronic obstructive pulmonary disease) Current Visit: No Status: Chronic Assessment and plan: The patient have history of COPD, we will continue home medication, start patient on the steroids, chest x-ray was no significant abnormalities, whether patient has recent history of pneumonia, we will start empiric antibiotics, and obtain to culture os sputum. The patient stated that he follow-up with the pulmonary team as an outpatient, he would like to be reevaluated while inpatient since his respiratory symptoms including persistent cough is not improving. Qualifiers: COPD type: unspecified COPD Qualified Code(s): J44.9 - Chronic obstructive pulmonary disease, unspecified (7) Parkinson's disease Current Visit: No Status: Acute Assessment and plan: We will continue home medication (8) DVT prophylaxis Current Visit: No Status: Acute Assessment and plan: We will start heparin 5000 twice a day - Time Spent With Patient Total time spent is greater than 50% in coordination of care (as documented) at patient's floor/unit and/or counseling patient:
[2018-06-15] MEDS ORDERED: (Fluticasone/Vilanterol [Breo Ellipta 100-25 Mcg Inh]) IH SCH (09:45)
[2018-06-15] MEDS ORDERED: Ondansetron 4 MG/2 ML VIAL IVP PRN (09:47)
[2018-06-15] MEDS ORDERED: Naloxone 0.4 MG/ML INJ IVP PRN (09:47)
[2018-06-15] MEDS ORDERED: Acetaminophen 325 MG TABLET PO PRN (09:47)
[2018-06-15] MEDS ORDERED: Mag Hydrox/Al Hydrox/Simeth 30 ML UDC PO PRN (09:47)
[2018-06-15] MEDS: Carbidopa/Levodopa 25/100 TABLET PO SCH ×3 (11:22→20:58)
[2018-06-15] MEDS: rOPINIRole 1 MG TABLET PO SCH ×3 (11:22→20:58)
[2018-06-15] MEDS: Gabapentin 300 MG CAPSULE PO SCH ×3 (11:22→20:57)
[2018-06-15] MEDS: CYANOCOBALAMIN PO SCH (11:23)
[2018-06-15] MEDS: [UNRECOGNIZED DRUG - OTHER] PO SCH (11:23)
[2018-06-15] MEDS: 0.9 % Sodium Chloride 1,000 ML IVC SCH ×2 (11:24→23:59)
[2018-06-15] MEDS: *HR* Morphine 2 MG/ML SYRINGE IVP PRN ×3 (12:55→23:58)
[2018-06-15] MEDS: Ipratropium/Albuterol Neb 3 ML IH SCH ×3 (15:05→22:07)
[2018-06-15] MEDS: (Cevimeline Hcl [Evoxac] 30 MG) PO SCH ×3 (15:29→22:59)
[2018-06-15] MEDS: Azithromycin 500 MG in D5% in Water 250 ML IVPB SCH (15:38)
[2018-06-15] MEDS: *HR* Heparin 5,000 UNIT/ML VIAL SQ SCH (19:32)
[2018-06-15] MEDS: MethylPREDNISolone 40 MG/ML VIAL IVP SCH ×2 (19:32→23:58)
[2018-06-15] MEDS: Niacin (24 HR) 500 MG TAB.ER.24H PO SCH (20:58)
[2018-06-15] MEDS: Benzonatate 100 MG CAPSULE PO PRN (20:58)
[2018-06-15] MEDS: tiZANidine 4 MG TABLET PO PRN (23:58)
[2018-06-16] MEDS: Ipratropium/Albuterol Neb 3 ML IH SCH ×4 (04:07→22:36)
[2018-06-16] MEDS: *HR* Heparin 5,000 UNIT/ML VIAL SQ SCH ×2 (05:33→18:39)
[2018-06-16] MEDS: MethylPREDNISolone 40 MG/ML VIAL IVP SCH ×2 (05:33→11:22)
[2018-06-16] MEDS: *HR* Morphine 2 MG/ML SYRINGE IVP PRN ×4 (05:34→20:10)
[2018-06-16 06:37] LABS: Basophils % 0.2 %; Hemoglobin 15.4 g/dL (12.9-16.9); Immature Granulocytes % 0.6 % (0-4); Lymphocytes # 0.3 K/mcL (0.6-4.6); Lymphocytes % 2.6 %; Mean Corpuscular HGB Conc 33.5 g/dL (31.6-35.5); Mean Corpuscular Hemoglobin 28.7 pg (28.0-33.3); Mean Corpuscular Volume 85.8 fL (83.0-100.0); Mean Platelet Volume 11.3 fL (9.4-12.4); Monocytes # 0.2 K/mcL (0.0-1.3); Monocytes % 1.4 %; Neutrophils # 11.9 K/mcL (1.6-8.9); Platelet Count 233 K/mcL (140-400); Red Blood Count 5.36 M/mcL (4.19-5.50); Red Cell Distribution Width 13.4 % (11.5-14.5); Segmented Neutrophils % 95.2 %
[2018-06-16 06:44] LABS: INR 0.9; Prothrombin Time 10.6 Seconds (9.4-12.1)
[2018-06-16 06:47] LABS: Activated Partial Thrombo Time 26.8 Seconds (26.0-36.0)
[2018-06-16 06:57] LABS: Alanine Aminotransferase 40 Units/L (7-52); Albumin/Globulin Ratio 1.7 (1.1-2.2); Alkaline Phosphatase 104 Units/L (34-104); Aspartate Amino Transferase 12 Units/L (13-39); BUN/Creatinine Ratio 16 (6-26); Bilirubin,Total 0.6 mg/dL (0.3-1.0); Blood Urea Nitrogen 14 mg/dL (8-23); Calcium 9.1 mg/dL (8.6-10.3); Carbon Dioxide 23 mEq/L (23-29); Chloride 104 mEq/L (98-107); Chol/HDL Ratio 2.6 (0-4.9); Cholesterol 145 mg/dL (< 200); Globulin 2.4 g/dL (2.4-3.5); Glucose 264 mg/dL (70-105); HDL Cholesterol 55 mg/dL (40-59); LDL Cholesterol,Calculated 67 mg/dL (0-99); Osmolality,Calculated 300 (280-300); Phosphorous 2.6 mg/dL (2.7-4.5); Potassium 3.8 mEq/L (3.5-5.1); Sodium 140 mEq/L (136-145); Total Protein 6.4 g/dL (6.4-8.9); Triglycerides 113 mg/dL (< 150); eGFR For Non-African Americans > 60 (> 60)
[2018-06-16] MEDS: rOPINIRole 1 MG TABLET PO SCH ×3 (08:57→20:09)
[2018-06-16] MEDS: Gabapentin 300 MG CAPSULE PO SCH ×3 (08:57→20:09)
[2018-06-16] MEDS: Carbidopa/Levodopa 25/100 TABLET PO SCH ×3 (08:57→20:09)
[2018-06-16] MEDS: (Cevimeline Hcl [Evoxac] 30 MG) PO SCH ×2 (08:58→15:56)
[2018-06-16] MEDS: [UNRECOGNIZED DRUG - OTHER] PO SCH (08:59)
[2018-06-16] MEDS: CYANOCOBALAMIN PO SCH (08:59)
[2018-06-16] MEDS: (Fluticasone/Vilanterol [Breo Ellipta 100-25 Mcg Inh]) IH SCH (10:22)
--- NOTE | 2018-06-16 11:44 | Pulmonology Consult Note ---
Date of Encounter: 06/16/18 Time of Encounter: 09:00 Assessment and Plan (1) COPD (chronic obstructive pulmonary disease) Current Visit: Yes Status: Chronic Patient COPD with acute exacerbation to continue bronchodilators, steroids will change antibiotic to antipseudomonal coverage with Zosyn. Qualifiers: COPD type: COPD with acute exacerbation Qualified Code(s): J44.1 - Chronic obstructive pulmonary disease with (acute) exacerbation (2) Tracheomalacia Current Visit: Yes Status: Chronic Patient previous endoscopy showed tracheal bronchial malacia which might not help in clearing the secretions usually BiPAP therapy will help and is not helping for the past few weeks.Might consider bronchoscopy if the patient is not turning around with conservative management. 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 Patient denies any fever or chills or any other constitutional symptoms. Patient denies any chest pain chest tightness denies abdominal pain denies active GERD or neuro symptoms. Pulmonary was consult. I will worsening shortness of breath with COPD emphysema and also tracheobronchio malacia. Past Med Surg Social Fam HX - Past Medical History Medical history: arthritis, COPD, GERD, hyperlipidemia, hypertension, migraine Additional medical history: parkinsons. 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 Left Knee. Left rotator cuff - Social History Smoking Status: Former smoker Smokeless Tobacco Status: No Alcohol use: rarely Drug use: none - Family History Mother Living Status: Still Living Father Living Status: Still Living Hx Family Cardiac Disorders: Yes Hx Family Cancer: Yes Hx Family Endocrine Disorder: Yes (thyroid problems) Medications and Allergies Albuterol Sulfate [Proair Hfa] 2 puff IH Q4H PRN 07/24/16 [History] Atorvastatin Calcium [Lipitor] 20 mg PO DAILY 07/24/16 [History] Gabapentin [Neurontin] 600 mg PO TID 07/24/16 [History] Niacin (24 HR) [Niaspan] 500 mg PO HS 07/24/16 [History] Tizanidine HCl 8 mg PO HS 07/24/16 [History] Cevimeline HCl [Evoxac] 10 mg PO TID 12/14/17 [History] Lisinopril [Zestril] 5 mg PO DAILY #30 tablet 12/14/17 [Rx] Carbidopa/Levodopa [Carbidopa-Levo 25-100 mg Odt] 1 each PO TID 06/15/18 [History] Fluticasone/Vilanterol [Breo Ellipta 100-25 Mcg INH] 1 each IH DAILY 06/15/18 [History] Metoprolol [Lopressor] 25 mg PO DAILY 06/15/18 [History] Cyanocobalamin (Vitamin B-12) [Vitamin B12] 1,000 mcg PO DAILY 06/16/18 [History] Doxepin HCl 10 mg PO HS 06/16/18 [History] HYDROcodone/Acet 5/325 mg [[place] 5-325 mg] 1 tab PO Q6H PRN 06/16/18 [History] Ropinirole HCl [Requip Xl] 4 mg PO HS 06/16/18 [History] diazePAM [Valium] 5 mg PO Q8H PRN 06/16/18 [History] Allergy/AdvReac Type Severity Reaction Status Date / Time [place] Allergy See Verified 06/16/18 13:39 Comments [place] Allergy See Verified 06/16/18 13:39 Comments All Systems: The remainder of the systems were reviewed and are negative Physical Examination Vital Signs: Vital Signs, Last 4 Hours Temp Pulse Resp BP Pulse Ox 06/16/18 11:01 114 F H 114 19 140/91 96 06/16/18 10:22 18 92 Effort: mildly labored Auscultation: bilateral: rales Cardiovascular: regular rate and rhythm normal mental status, non-focal exam Results - Laboratory Findings CBC and BMP: 06/16/18 06:09 06/16/18 06:09 PT/INR, D-dimer PT 10.6 Seconds (9.4-12.1) 06/16/18 06:09 D-Dimer 1161 ng/mLFEU (0-500) H 06/15/18 03:45 Abnormal lab findings: Abnormal lab results WBC 12.5 K/mcL (4.3-11.1) H 06/16/18 06:09 Neutrophils # 11.9 K/mcL (1.6-8.9) H 06/16/18 06:09 Lymphocytes # 0.3 K/mcL (0.6-4.6) L 06/16/18 06:09 D-Dimer 1161 ng/mLFEU (0-500) H 06/15/18 03:45 Glucose 264 mg/dL (70-105) H 06/16/18 06:09 Phosphorus 2.6 mg/dL (2.7-4.5) L 06/16/18 06:09 AST 12 Units/L (13-39) L 06/16/18 06:09 - Microbiology Findings Microbiology Findings: Microbiology, Last 48 Hours 06/15/18 21:15 Legionella Antigen - Final Urine,Clean Catch Streptococcus pneumoniae Antigen (M - Final 06/15/18 06:03 Blood Culture - Preliminary Peripheral Venipuncture Culture is incubating and being continuously monitored for growth. Final report to follow. 06/15/18 03:45 Blood Culture - Preliminary Peripheral Venipuncture Culture is incubating and being continuously monitored for growth. Final report to follow. - Clinical Findings Intake & Output: Intake & Output 06/15/18 06/16/18 06/16/18 23:59 07:59 15:59 Intake Total 1200 / 1200 0 / 0 Output Total 800 / 800 500 / 500 Balance 400 / 400 -500 / -500 Weight 104.8 kg Consult Discharge Plan - Plan Referrals: Africa Alarcon, SCHOOL PSYCHOLOGICAL EXAMINER [Primary Care Provider] -
[2018-06-16] MEDS: Azithromycin 500 MG in D5% in Water 250 ML IVPB SCH (13:20)
[2018-06-16] MEDS: Benzonatate 100 MG CAPSULE PO PRN (13:30)
[2018-06-16] MEDS: Promethazine/Codeine Oral Sryup 5 ML UDC PO PRN ×2 (14:14→20:30)
[2018-06-16] MEDS: Piperacillin/Tazobactam 3.375 GM in 0.9 % Sodium Chloride Mini Bag 100 ML IVPB SCH ×2 (14:15→22:18)
--- NOTE | 2018-06-16 14:45 | Internal Med Progress Note ---
Hospitalist Progress Note - Encounter Date of Encounter: 06/16/18 Time of Encounter: 10:35 - Subjective Interval History: Patient continues to feel miserable. Complains of significant cough and chest discomfort due to repeated coughing. He is concerned about his history of tracheomalacia and is persistent tachycardia. No fever reported overnight. ( Temperature wrongly dcumented at 114. Will Be corrected). Denies any hemoptysis. Reports that he was following up with [facility] and Dr. Branch for his tracheomalacia. - Exam Vitals: Temp Pulse Resp BP Pulse Ox 114 F H 114 19 140/91 96 06/16/18 11:06/16/18 11:06/16/18 11:06/16/18 11:06/16/18 11:01 Exam: General: Patient is alert, moderate distress, oriented x 3 ENT: Mucous membranes moist Respiratory: Prolonged expiratory phase with bilateral wheezing and rhonchi Cardiovascular: Chest wall tenderness present Regular rate and rhythm. Tachycardic. s1 and s2 normal No clicks, rubs, gallops, or murmurs. No pedal edema Abdomen: Abdomen is soft, nontender. Bowel sounds are present Musculoskeletal: Spontaneously moving all extremities Skin: warm, dry, intact. Neuro: Alert oriented x 3 normal cranial nerves, no focal deficits - Assessment and Plan (1) COPD (chronic obstructive pulmonary disease) Current Visit: Yes Status: Chronic Assessment and Plan: Patient with acute COPD exacerbation. Worsened due to underlying tracheomalacia. Discussed with pulmonology. Will broaden antibiotic spectrum continue steroids. If patient's symptoms do not improve, he will need bronchoscopy. High risk for complications (2) Hyperlipidemia Current Visit: Yes Status: Chronic Assessment and Plan: Continue atorvastatin (3) Parkinson's disease Current Visit: Yes Status: Chronic Assessment and Plan: Continue Sinemet (4) Hypertension Current Visit: Yes Status: Chronic Assessment and Plan: Blood pressure is intermittently elevated. We will increase Lopressor dosage to 25 twice a day. (5) Tracheomalacia Current Visit: Yes Status: Chronic Assessment and Plan: Patient with history of tracheomalacia. This is likely contributing to his worsening symptoms. Discussed with pulmonology. Continue steroids. Broaden antibiotic spectrum. (6) Chest pain Current Visit: Yes Status: Acute Assessment and Plan: Intercostal chest pain mainly due to persistent coughing. Troponins are negative. Patient is tachycardic but it is sinus tachycardia. Likely due to acute respiratory illness (7) DVT prophylaxis Current Visit: Yes Status: Acute Assessment and Plan: Continue heparin - Time Spent with Patient Total time spent is greater than 50% in coordination of care (as documented) at patient's floor/unit and/or counseling patient: Internal Medicine: Result - Labs CBC & Chem 7: 06/16/18 06:09 06/16/18 06:09 Labs: Short CBC 06/16/18 Range/Units 06:09 WBC 12.5 H (4.3-11.1) K/mcL Hgb 15.4 (12.9-16.9) g/dL Hct 46.0 (37.5-50.1) % Plt Count 233 (140-400) K/mcL Neutrophils # 11.9 H (1.6-8.9) K/mcL BMP 06/16/18 06:09 Sodium 140 Potassium 3.8 Chloride 104 Carbon Dioxide 23 BUN 14 Creatinine 0.90 Glucose 264 H Calcium 9.1 Cardiac Enzymes 06/15/18 06/15/18 Range/Units 16:09 22:19 Troponin I < 0.03 < 0.03 (< 0.04) ng/mL Liver Function 06/16/18 Range/Units 06:09 Total Bilirubin 0.6 (0.3-1.0) mg/dL AST 12 L (13-39) Units/L ALT 40 (7-52) Units/L Alkaline Phosphatase 104 (34-104) Units/L Albumin 4.0 (3.5-5.7) g/dL - ABG Interpretation ABG results: PT/INR, D-dimer PT 10.6 Seconds (9.4-12.1) 06/16/18 06:09 D-Dimer 1161 ng/mLFEU (0-500) H 06/15/18 03:45 Consult Discharge Plan - Plan Referrals: Africa Alarcon, PATIENT ACCESS [Primary Care Provider] - (1) COPD (chronic obstructive pulmonary disease) Qualifiers: COPD type: COPD with acute exacerbation Qualified Code(s): J44.1 - Chronic obstructive pulmonary disease with (acute) exacerbation (2) Hyperlipidemia Qualifiers: Hyperlipidemia type: mixed hyperlipidemia Qualified Code(s): E78.2 - Mixed hyperlipidemia (4) Hypertension Qualifiers: Hypertension type: essential hypertension Qualified Code(s): I10 - Essential (primary) hypertension (6) Chest pain Qualifiers: Chest pain type: intercostal pain Qualified Code(s): R07.82 - Intercostal pain
[2018-06-16] MEDS: Niacin (24 HR) 500 MG TAB.ER.24H PO SCH (20:08)
[2018-06-17] MEDS: (Cevimeline Hcl [Evoxac] 30 MG) PO SCH ×4 (00:17→20:12)
[2018-06-17] MEDS: MethylPREDNISolone 40 MG/ML VIAL IVP SCH ×6 (00:20→23:16)
[2018-06-17] MEDS: tiZANidine 4 MG TABLET PO PRN (00:32)
[2018-06-17] MEDS: *HR* Morphine 2 MG/ML SYRINGE IVP PRN ×5 (00:33→20:12)
[2018-06-17] MEDS: Benzonatate 100 MG CAPSULE PO PRN ×2 (00:37→08:30)
[2018-06-17] MEDS: Ipratropium/Albuterol Neb 3 ML IH SCH ×4 (04:14→22:16)
[2018-06-17] MEDS: Promethazine/Codeine Oral Sryup 5 ML UDC PO PRN ×3 (04:37→17:53)
[2018-06-17] MEDS: Piperacillin/Tazobactam 3.375 GM in 0.9 % Sodium Chloride Mini Bag 100 ML IVPB SCH ×3 (05:24→23:14)
[2018-06-17] MEDS: *HR* Heparin 5,000 UNIT/ML VIAL SQ SCH ×2 (06:16→17:31)
[2018-06-17 06:26] LABS: Basophils % 0.1 %; Immature Granulocytes % 0.8 % (0-4); Lymphocytes # 0.4 K/mcL (0.6-4.6); Lymphocytes % 2.7 %; Mean Corpuscular HGB Conc 33.3 g/dL (31.6-35.5); Mean Corpuscular Volume 86.9 fL (83.0-100.0); Mean Platelet Volume 11.3 fL (9.4-12.4); Monocytes # 0.4 K/mcL (0.0-1.3); Monocytes % 2.6 %; Neutrophils # 14.1 K/mcL (1.6-8.9); Platelet Count 241 K/mcL (140-400); Red Blood Count 5.18 M/mcL (4.19-5.50); Red Cell Distribution Width 13.6 % (11.5-14.5); Segmented Neutrophils % 93.8 %
[2018-06-17 06:51] LABS: BUN/Creatinine Ratio 18 (6-26); Blood Urea Nitrogen 17 mg/dL (8-23); Calcium 8.8 mg/dL (8.6-10.3); Carbon Dioxide 22 mEq/L (23-29); Chloride 104 mEq/L (98-107); Glucose 326 mg/dL (70-105); Osmolality,Calculated 300 (280-300); Potassium 3.6 mEq/L (3.5-5.1); Sodium 138 mEq/L (136-145); eGFR For Non-African Americans > 60 (> 60)
[2018-06-17] MEDS: Carbidopa/Levodopa 25/100 TABLET PO SCH ×3 (08:25→20:11)
[2018-06-17] MEDS: rOPINIRole 1 MG TABLET PO SCH ×3 (08:25→20:11)
[2018-06-17] MEDS: Gabapentin 300 MG CAPSULE PO SCH ×3 (08:25→20:12)
[2018-06-17] MEDS ORDERED: Cyanocobalamin (B-12) 1,000 MCG TABLET PO SCH (09:00)
[2018-06-17 09:24] LABS: Estimated Average Glucose 146 mg/dl; Hemoglobin A1C 6.7 %
[2018-06-17] MEDS: (Fluticasone/Vilanterol [Breo Ellipta 100-25 Mcg Inh]) IH SCH (10:33)
[2018-06-17] MEDS: Azithromycin 500 MG in D5% in Water 250 ML IVPB SCH (12:08)
[2018-06-17] MEDS ORDERED: Dextrose Gel 15 GM/37.5 ML TUBE PO PRN ×2 (12:46)
[2018-06-17] MEDS ORDERED: D5% in Water 1,000 ML IVC PRN (12:46)
[2018-06-17] MEDS ORDERED: *HR* Dextrose 50 % in Water (Syg) 50 ML SYRINGE IVP PRN (12:46)
--- NOTE | 2018-06-17 12:58 | Internal Med Progress Note ---
Hospitalist Progress Note - Encounter Date of Encounter: 06/17/18 Time of Encounter: 10:30 - Subjective Interval History: Patient continues to feel miserable especially with persistent cough and chest wall pain due to cough. No fever or chills reported overnight. Denies any history of diabetes or elevated blood sugars. No abdominal pain. No diarrhea - Exam Vitals: Temp Pulse Resp BP Pulse Ox 98.2 F 99 18 129/81 91 06/17/18 11:18 06/17/18 11:18 06/17/18 11:18 06/17/18 11:18 06/17/18 11:18 Exam: General: Patient is alert, no acute distress, oriented x 3 ENT: Mucous membranes moist Respiratory: rales/ and prolonged expiratory phase. Cardiovascular: Regular rate and rhythm. s1 and s2 normal No clicks, rubs, gallops, or murmurs. No pedal edema Abdomen: Abdomen is soft, nontender. Bowel sounds are present Musculoskeletal: Spontaneously moving all extremities Skin: warm, dry, intact. Neuro: Alert oriented x 3 normal cranial nerves, no focal deficits - Assessment and Plan (1) COPD (chronic obstructive pulmonary disease) Current Visit: Yes Status: Chronic Assessment and Plan: Exacerbated with underlying tracheomalacia. Discussed with pulmonology. Will plan for bronchoscopy tomorrow. Continue steroids and bronchodilators. Continue antibiotics. Moderate risk for complications (2) Hyperlipidemia Current Visit: Yes Status: Chronic Assessment and Plan: Continue lipitor (3) Parkinson's disease Current Visit: Yes Status: Chronic Assessment and Plan: Continue Sinemet (4) Hypertension Current Visit: Yes Status: Chronic Assessment and Plan: BP is well controlled. Continue lisinopril and metoprolol. (5) Tracheomalacia Current Visit: Yes Status: Chronic Assessment and Plan: Evaluated by Pulmonology. Possible bronchoscopy tomorrow to help clear secr etions. (6) Chest pain Current Visit: Yes Status: Acute Assessment and Plan: Intercostal Pain due to persistent cough. (7) DVT prophylaxis Current Visit: Yes Status: Acute Assessment and Plan: Sq heparin (8) Type 2 diabetes mellitus Current Visit: Yes Status: Acute Assessment and Plan: A1c 6.7. New diagnosis of diabetes. Will place patient on subcutaneous insulin here. Monitor blood sugars closely. We will provide education. - Time Spent with Patient Total time spent is greater than 50% in coordination of care (as documented) at patient's floor/unit and/or counseling patient: Internal Medicine: Result - Labs CBC & Chem 7: 06/17/18 05:51 06/17/18 05:51 Labs: Short CBC 06/17/18 Range/Units 05:51 WBC 15.0 H (4.3-11.1) K/mcL Hgb 15.0 (12.9-16.9) g/dL Hct 45.0 (37.5-50.1) % Plt Count 241 (140-400) K/mcL Neutrophils # 14.1 H (1.6-8.9) K/mcL BMP 06/17/18 05:51 Sodium 138 Potassium 3.6 Chloride 104 Carbon Dioxide 22 L BUN 17 Creatinine 0.96 Glucose 326 H Calcium 8.8 - ABG Interpretation ABG results: PT/INR, D-dimer PT 10.6 Seconds (9.4-12.1) 06/16/18 06:09 D-Dimer 1161 ng/mLFEU (0-500) H 06/15/18 03:45 Consult Discharge Plan - Plan Referrals: Africa Alarcon, VICE PRESIDENT QUALITY ASSURANCE [Primary Care Provider] - (1) COPD (chronic obstructive pulmonary disease) Qualifiers: COPD type: COPD with acute exacerbation Qualified Code(s): J44.1 - Chronic obstructive pulmonary disease with (acute) exacerbation (2) Hyperlipidemia Qualifiers: Hyperlipidemia type: mixed hyperlipidemia Qualified Code(s): E78.2 - Mixed hyperlipidemia (4) Hypertension Qualifiers: Hypertension type: essential hypertension Qualified Code(s): I10 - Essential (primary) hypertension (6) Chest pain Qualifiers: Chest pain type: intercostal pain Qualified Code(s): R07.82 - Intercostal pain (8) Type 2 diabetes mellitus Qualifiers: Diabetes mellitus senior living insulin use: without senior living use Diabetes mellitus complication status: with hyperglycemia Qualified Code(s): E11.65 - Type 2 diabetes mellitus with hyperglycemia
--- NOTE | 2018-06-17 13:01 | Pulmonology Progress Note ---
Date of Encounter: 06/17/18 Time of Encounter: 11:30 Assessment and Plan (1) COPD (chronic obstructive pulmonary disease) Current Visit: Yes Status: Chronic Continue current regimen of bronchitis, steroids and antibiotics Qualifiers: COPD type: COPD with acute exacerbation Qualified Code(s): J44.1 - Chronic obstructive pulmonary disease with (acute) exacerbation (2) Tracheomalacia Current Visit: Yes Status: Chronic Patient had the diagnosis of tracheal bronchomalacia the last bronchoscopy in 2017 since patient is a very anxious person will do with MAC with minimal sedation to start with to see for expiratory dynamic airway collapse. Most likely this due to EDAC type usually did do well with CPAP therapy patient says initially the CPAP therapy helped not helping anymore. Before discharge. To get a 6 minute walk test to look for exercise oxygen requirements and also we need to get him a flutter valve or any airway clearance is a device on discharge. After that I will see him in in the clinic in 2 weeks. The most definitive treatment for tracheal bronchial malacia is tracheal bronchial plasty before that he needs to have a trial of stent TM is severe . We will do monitored anesthesia care with minimal sedation to sedate for expiratory induced dynamic collapse. To keep nothing by mouth after midnight. Subjective Principal diagnosis: COPD exacerbation with tracheal bronchomalacia Interval history: Patient presented with COPD exacerbation complicated by tracheal bronchomalacia, and not able to cough out the secretions.. Patient was willing to undergo bronchoscopy. Objective PUL Vital signs: Last Vital Signs Temp 98.2 F 06/17/18 11:18 Pulse 99 06/17/18 11:18 Resp 18 06/17/18 11:18 BP 129/81 06/17/18 11:18 Pulse Ox 91 06/17/18 11:18 Auscultation: bilateral: rales Cardiovascular: regular rate and rhythm normal mental status anxious Results - Laboratory Findings CBC and BMP: 06/17/18 05:51 06/17/18 05:51 PT/INR, D-dimer PT 10.6 Seconds (9.4-12.1) 06/16/18 06:09 D-Dimer 1161 ng/mLFEU (0-500) H 06/15/18 03:45 Abnormal lab findings: Abnormal lab results WBC 15.0 K/mcL (4.3-11.1) H 06/17/18 05:51 Neutrophils # 14.1 K/mcL (1.6-8.9) H 06/17/18 05:51 Lymphocytes # 0.4 K/mcL (0.6-4.6) L 06/17/18 05:51 D-Dimer 1161 ng/mLFEU (0-500) H 06/15/18 03:45 Carbon Dioxide 22 mEq/L (23-29) L 06/17/18 05:51 Glucose 326 mg/dL (70-105) H 06/17/18 05:51 Hemoglobin A1c 6.7 % (-5.6) H 06/17/18 05:51 Phosphorus 2.6 mg/dL (2.7-4.5) L 06/16/18 06:09 AST 12 Units/L (13-39) L 06/16/18 06:09 - Microbiology Findings Microbiology Findings: Microbiology, Last 48 Hours 06/15/18 21:15 Legionella Antigen - Final Urine,Clean Catch Streptococcus pneumoniae Antigen (M - Final 06/15/18 06:03 Blood Culture - Preliminary Peripheral Venipuncture Culture is incubating and being continuously monitored for growth. Final report to follow. - Clinical Findings Intake & Output: Intake & Output 06/16/18 06/17/18 06/17/18 23:59 07:59 15:59 Intake Total 700 / 700 340 / 340 610 / 610 Output Total 650 / 650 450 / 450 Balance 700 / 700 -310 / -310 160 / 160 Weight 104.8 kg Consult Discharge Plan - Plan Referrals: Africa Alarcon, PROCESS SPECIALIST [Primary Care Provider] -
[2018-06-17] MEDS: Insulin LISPRO 300 UNITS/3 ML VIAL SQ SCH ×4 (13:04→23:10)
--- NOTE | 2018-06-17 18:18 | Anesthesia Evaluation PreOp ---
Date of Encounter: 06/17/18 Time of Encounter: 19:08 - Past History Planned Operation: Bronchoscopy Cardiac History: HTN, Hyperlipidemia Pulmonary History: Former smoker (quit 1994), Asthma, COPD, JOSHUA Dx (uses CPAP), Other (tracheomalacia) RADIATION CONTROL WORKER History: Other (Parkinson's) Other Medical History: Diabetes Type II, GERD Anesthesia History: No Prior Anesthetic Complications, Past Anesthesia Alcohol Use: rarely Drug use: none Medications and Allergies Albuterol Sulfate [Proair Hfa] 2 puff IH Q4H PRN 07/24/16 [History] Atorvastatin Calcium [Lipitor] 20 mg PO DAILY 07/24/16 [History] Gabapentin [Neurontin] 600 mg PO TID 07/24/16 [History] Niacin (24 HR) [Niaspan] 500 mg PO HS 07/24/16 [History] Tizanidine HCl 8 mg PO HS 07/24/16 [History] Cevimeline HCl [Evoxac] 10 mg PO TID 12/14/17 [History] Lisinopril [Zestril] 5 mg PO DAILY #30 tablet 12/14/17 [Rx] Carbidopa/Levodopa [Carbidopa-Levo 25-100 mg Odt] 1 each PO TID 06/15/18 [History] Fluticasone/Vilanterol [Breo Ellipta 100-25 Mcg INH] 1 each IH DAILY 06/15/18 [History] Metoprolol [Lopressor] 25 mg PO DAILY 06/15/18 [History] Cyanocobalamin (Vitamin B-12) [Vitamin B12] 1,000 mcg PO DAILY 06/16/18 [History] Doxepin HCl 10 mg PO HS 06/16/18 [History] HYDROcodone/Acet 5/325 mg [[place] 5-325 mg] 1 tab PO Q6H PRN 06/16/18 [History] Ropinirole HCl [Requip Xl] 4 mg PO HS 06/16/18 [History] diazePAM [Valium] 5 mg PO Q8H PRN 06/16/18 [History] Allergy/AdvReac Type Severity Reaction Status Date / Time [place] Allergy See Verified 06/16/18 13:39 Comments [place] Allergy See Verified 06/16/18 13:39 Comments - Meds/Allergy Pre-op Review Medications Reviewed: Yes Allergies Reviewed: Yes Beta Blockers on Current Med List: Yes If Beta Blockers taken, Date/Time (Last Dose taken): 06/17/2018 at 0825 Anesthesia Results - Labs 06/17/18 05:51 06/17/18 05:51 - Imaging EKG: report reviewed (01/31/2018 Sinus tachycardia Atrial premature complex Inferior infarct, old) Chest x-ray: report reviewed (06/15/2018 IMPRESSION: No acute process. Stable prominence of the interstitial markings Mild bibasilar atelectasis) Additional studies: 12/14/2017 Echo Impressions: LVEF 65%. Normal LV chamber size, wall thickness and function. Normal right ventricular structure and function. No significant valvular dysfunction. Unable to estimate pulmonary artery pressure due to lack of TR jet. Anesthesia Exam Vital Signs/O2 Sat/Glucose, Most Recent Temp Pulse Resp BP Pulse Ox 97.4 F L 109 18 149/85 93 06/17/18 17:00 06/17/18 17:00 06/17/18 17:00 06/17/18 17:00 06/17/18 17:00 Blood Glucose* 203 Height: 6'/1.83m Weight: 231 lbs/104.8 kg NPO (# of Hours): 8 Pain Scale: 0 Pain Scale Used: Numeric (1 - 10) - HEENT Pupil (Motor): EOMI Mallampati: II Teeth: Poor dentition Oral Opening: Greater than 3 - RADIATION CONTROL WORKER LOC: Oriented RADIATION CONTROL WORKER Motor: Normal RUE, Normal LUE, Normal RLE, Normal LLE, Normal Face RADIATION CONTROL WORKER Sensory: Normal: RUE, LUE, RLE, LLE, Face - Cardiac Rhythm: Regular Murmur: None - Pulmonary Breath Sounds: bilateral Clear Respiratory Effort: Symmetrical Anesthesia Assess/Plan ASA Score: 3 Level of consciousness: Cooperative, Oriented, Tranquil Anesthetic Plan: General Monitoring Plan: Standard Monitors Recovery Plan: PACU
[2018-06-17] MEDS: Niacin (24 HR) 500 MG TAB.ER.24H PO SCH (20:10)
[2018-06-18] MEDS: *HR* Morphine 2 MG/ML SYRINGE IVP PRN ×5 (00:55→23:45)
[2018-06-18] MEDS: tiZANidine 4 MG TABLET PO PRN ×2 (01:00→23:45)
[2018-06-18] MEDS: Promethazine/Codeine Oral Sryup 5 ML UDC PO PRN ×3 (01:46→22:09)
[2018-06-18] MEDS: Benzonatate 100 MG CAPSULE PO PRN ×2 (04:33→13:11)
[2018-06-18] MEDS: Ipratropium/Albuterol Neb 3 ML IH SCH ×4 (05:03→22:05)
[2018-06-18] MEDS: *HR* Heparin 5,000 UNIT/ML VIAL SQ SCH ×2 (05:58→16:44)
[2018-06-18] MEDS: Piperacillin/Tazobactam 3.375 GM in 0.9 % Sodium Chloride Mini Bag 100 ML IVPB SCH ×3 (06:11→22:08)
[2018-06-18] MEDS ORDERED: *HR* FentaNYL (PF) 100 MCG/2 ML VIAL ONE (06:19)
[2018-06-18] MEDS ORDERED: *HR* Propofol 200 MG/20 ML VIAL IVP ONE (06:19)
[2018-06-18] MEDS ORDERED: *HR* Midazolam HCl 2 MG/2 ML VIAL ONE (06:20)
[2018-06-18] MEDS: MethylPREDNISolone 40 MG/ML VIAL IVP SCH ×4 (06:20→23:45)
[2018-06-18] MEDS ORDERED: Dexamethasone 4 MG/ML VIAL ONE (06:21)
[2018-06-18] MEDS ORDERED: Ondansetron 4 MG/2 ML VIAL ONE (06:21)
[2018-06-18] MEDS ORDERED: Lidocaine -MPF 2% 2 ML VIAL ONE (06:21)
[2018-06-18] MEDS ORDERED: Lidocaine -MPF 4% 5 ML AMPUL ONE (06:21)
[2018-06-18] MEDS ORDERED: *HR* Rocuronium Bromide 50 MG/5 ML VIAL ONE (06:53)
[2018-06-18] MEDS ORDERED: *HR* Succinylcholine 200 MG/10 ML VIAL IVP ONE (06:53)
[2018-06-18] MEDS: Insulin LISPRO 300 UNITS/3 ML VIAL SQ SCH ×4 (07:44→21:57)
[2018-06-18] MEDS ORDERED: Lidocaine Viscous Oral Soln 15 ML SOLUTION ONE (07:49)
[2018-06-18] MEDS ORDERED: Ipratropium/Albuterol Neb 3 ML IH ONE (08:05)
[2018-06-18] MEDS ORDERED: diazePAM 5 MG TABLET PO PRN (09:27)
[2018-06-18] MEDS ORDERED: *HR* HYDROcodone/Acet 5/325 mg TABLET PO PRN (09:27)
--- NOTE | 2018-06-18 09:43 | Anesthesia Evaluation Post Op ---
Date of Encounter: 06/18/18 Time of Encounter: 09:42 - Vital Signs Vital Signs: Selected Entries 06/18/18 09:39 Temperature 98.8 F Pulse Rate 104 Respiratory Rate 13 Blood Pressure 135/82 O2 Sat by Pulse Oximetry 95 - Lungs Lungs: Clear Ascult./Percussion - Airway Airway: Non-obstructed - Cardiovascular Regular Rate - Mental Status Mental Status: Alert & Oriented, Answers Appropriately - Pain Pain Scale: 0 - Nausea Vomiting Nausea Vomiting: Not Present - Hydration Hydration: Tolerates oral liquids, Has not voided Notes: 06/18/18 09:42 on CPAP with home settings - Discharge PostOp Status: Transfer Patient to floor
[2018-06-18] MEDS: Gabapentin 300 MG CAPSULE PO SCH ×3 (10:12→22:09)
[2018-06-18] MEDS: Carbidopa/Levodopa 25/100 TABLET PO SCH ×3 (10:12→22:09)
[2018-06-18] MEDS: rOPINIRole 1 MG TABLET PO SCH ×3 (10:12→22:09)
[2018-06-18] MEDS: (Cevimeline Hcl [Evoxac] 30 MG) PO SCH ×3 (10:13→22:09)
[2018-06-18] MEDS: (Fluticasone/Vilanterol [Breo Ellipta 100-25 Mcg Inh]) IH SCH (10:58)
--- NOTE | 2018-06-18 11:47 | Pulmonology Progress Note ---
Date of Encounter: 06/18/18 Time of Encounter: 08:00 Assessment and Plan (1) COPD (chronic obstructive pulmonary disease) Current Visit: Yes Status: Chronic Continue current regimen of bronchitis, steroids and antibiotics . On discharge patient will need nebulizer duoneb , 2 week steroid taper to complete 7 days course of antibiotics Qualifiers: COPD type: COPD with acute exacerbation Qualified Code(s): J44.1 - Chronic obstructive pulmonary disease with (acute) exacerbation (2) Tracheomalacia Current Visit: Yes Status: Chronic Patient had the diagnosis of tracheal bronchomalacia the last bronchoscopy in 2017 since patient is a very anxious person will do with MAC with minimal sedation to start with to see for expiratory dynamic airway collapse. Most likely this due to EDAC type usually did do well with CPAP therapy patient says initially the CPAP therapy helped not helping anymore. Before discharge. To get a 6 minute walk test to look for exercise oxygen requirements and also we need to get him a flutter valve or any airway clearance is a device on discharge. After that I will see him in in the clinic in 2 weeks. The most definitive treatment for tracheal bronchial malacia is tracheal bronchial plasty before that he needs to have a trial of stent TM is severe . We will do monitored anesthesia care with minimal sedation to sedate for expiratory induced dynamic collapse. To keep nothing by mouth after midnight. / patient underwent bronchoscopy today showed 80% had a collapse of bowel the main marce almost 80% on the right mainstem and the left mainstem. Patient was able to cough up secretions that is a good sign. Patient is going to get evaluated in [facility] will try first adequately addressed therapy, CPAP therapy suspicious with [facility] Dr. guzman in the CPAP or changed to BiPAP regimen. To have her establish local wind tunnel engineer we will schedule him in the clinic in 2-3 weeks. Subjective Principal diagnosis: COPD exacerbation with tracheal bronchomalacia Interval history: Patient presented with COPD exacerbation complicated by tracheal bronchomalacia, and not able to cough out the secretions.. Patient was willing to undergo bronchoscopy. 06/18 patient had his bronchoscopy showed evidence of tracheal bronchomalacia with 80% collapse of the Advair and expiration patient had secretion most in the left lower lobe and some in the left upper lobe very minimal on the right lobar airways. The bronchoalveolar lavage sample was sent for microbiologic review. Otherwise patient recovered well after the bronchoscopy. Objective PUL Vital signs: Last Vital Signs Temp 98.8 F 06/18/18 09:49 Pulse 101 06/18/18 09:49 Resp 16 06/18/18 10:57 BP 126/85 06/18/18 09:49 Pulse Ox 90 06/18/18 10:57 Effort: mildly labored Auscultation: bilateral: diminished breath sounds, wheezes (Minimal) Cardiovascular: regular rate and rhythm normal mental status, non-focal exam other Results - Laboratory Findings CBC and BMP: 06/17/18 05:51 06/17/18 05:51 PT/INR, D-dimer PT 10.6 Seconds (9.4-12.1) 06/16/18 06:09 D-Dimer 1161 ng/mLFEU (0-500) H 06/15/18 03:45 Abnormal lab findings: Abnormal lab results WBC 15.0 K/mcL (4.3-11.1) H 06/17/18 05:51 Neutrophils # 14.1 K/mcL (1.6-8.9) H 06/17/18 05:51 Lymphocytes # 0.4 K/mcL (0.6-4.6) L 06/17/18 05:51 D-Dimer 1161 ng/mLFEU (0-500) H 06/15/18 03:45 Carbon Dioxide 22 mEq/L (23-29) L 06/17/18 05:51 Glucose 326 mg/dL (70-105) H 06/17/18 05:51 POC Glucose 161 mg/dL (70-99) H 06/17/18 21:54 Hemoglobin A1c 6.7 % (-5.6) H 06/17/18 05:51 Phosphorus 2.6 mg/dL (2.7-4.5) L 06/16/18 06:09 AST 12 Units/L (13-39) L 06/16/18 06:09 - Clinical Findings Intake & Output: Intake & Output 06/17/18 06/18/18 06/18/18 23:59 07:59 15:59 Intake Total 700 / 700 100 / 100 Output Total 150 / 150 Balance 700 / 700 -50 / -50 Weight 105 kg Consult Discharge Plan - Plan Referrals: Africa Alarcon, COMMERCIAL REAL ESTATE ATTORNEY [Primary Care Provider] -
[2018-06-18] MEDS: Azithromycin 500 MG in D5% in Water 250 ML IVPB SCH (11:55)
--- NOTE | 2018-06-18 13:16 | Internal Med Progress Note ---
Hospitalist Progress Note - Encounter Date of Encounter: 06/18/18 Time of Encounter: 11:15 - Subjective Interval History: He should not is awake and alert. Underwent bronchoscopy and just returned to his room. Feels somewhat better after bronchoscopy. Continues to have cough. No fever or chills reported overnight. - Exam Vitals: Temp Pulse Resp BP Pulse Ox 98.8 F 101 16 126/85 90 06/18/18 09:49 06/18/18 09:49 06/18/18 10:57 06/18/18 09:49 06/18/18 10:57 Exam: General: Patient is alert, no acute distress, oriented x 3 ENT: Mucous membranes moist Respiratory: Good air entry bilaterally. Minimal wheezing. Cardiovascular: Regular rate and rhythm. s1 and s2 normal No clicks, rubs, gallops, or murmurs. No pedal edema Abdomen: Abdomen is soft, nontender. Bowel sounds are present Musculoskeletal: Spontaneously moving all extremities Skin: warm, dry, intact. Neuro: Alert oriented x 3 normal cranial nerves, no focal deficits - Assessment and Plan (1) COPD (chronic obstructive pulmonary disease) Current Visit: Yes Status: Chronic Assessment and Plan: Continue bronchodilators and steroids. Complicated due to underlying tracheomalacia. Status post bronchoscopy today. We will begin to taper steroids. Chest percussion therapy with Acapella. (2) Hyperlipidemia Current Visit: Yes Status: Chronic Assessment and Plan: Continue Lipitor (3) Parkinson's disease Current Visit: Yes Status: Chronic Assessment and Plan: Continue Sinemet (4) Hypertension Current Visit: Yes Status: Chronic Assessment and Plan: Blood pressure was elevated earlier today but has been better controlled overall. Continue lisinopril and metoprolol (5) Tracheomalacia Current Visit: Yes Status: Chronic Assessment and Plan: Pulmonology following. Recommend outpatient follow-up with [facility]. Bronchoscopy completed today. (6) Chest pain Current Visit: Yes Status: Acute Assessment and Plan: Due to persistent coughing. Now improved. (7) DVT prophylaxis Current Visit: Yes Status: Acute Assessment and Plan: With subcutaneous heparin (8) Type 2 diabetes mellitus Current Visit: Yes Status: Chronic Assessment and Plan: Continue sliding scale insulin regimen. Continue to monitor blood sugars. Diabetic diet. - Time Spent with Patient Total time spent is greater than 50% in coordination of care (as documented) at patient's floor/unit and/or counseling patient: Internal Medicine: Result - Labs CBC & Chem 7: 06/17/18 05:51 06/17/18 05:51 - ABG Interpretation ABG results: PT/INR, D-dimer PT 10.6 Seconds (9.4-12.1) 06/16/18 06:09 D-Dimer 1161 ng/mLFEU (0-500) H 06/15/18 03:45 Consult Discharge Plan - Plan Referrals: Africa Alarcon, HEAVY EQUIPMENT PLUMBING SUPERVISOR [Primary Care Provider] - (1) COPD (chronic obstructive pulmonary disease) Qualifiers: COPD type: COPD with acute exacerbation Qualified Code(s): J44.1 - Chronic obstructive pulmonary disease with (acute) exacerbation (2) Hyperlipidemia Qualifiers: Hyperlipidemia type: mixed hyperlipidemia Qualified Code(s): E78.2 - Mixed hyperlipidemia (4) Hypertension Qualifiers: Hypertension type: essential hypertension Qualified Code(s): I10 - Essential (primary) hypertension (6) Chest pain Qualifiers: Chest pain type: intercostal pain Qualified Code(s): R07.82 - Intercostal pain (8) Type 2 diabetes mellitus Qualifiers: Diabetes mellitus snf insulin use: without bed bug exterminator use Diabetes mellitus complication status: with hyperglycemia Qualified Code(s): E11.65 - Ty pe 2 diabetes mellitus with hyperglycemia
[2018-06-18 14:41] LABS: ABG Base Excess -2 mEq/L (-2 to 3); ABG HCO3 23 mEq/L (21-27); ABG Oxygen Saturation 95 % (95-98); ABG PCO2 36 mmHg (35-45); ABG PH 7.41 pH Units (7.32-7.45); ABG PO2 73 mmHg (85-104); ABG TCO2 24 mEq/L (20-26)
[2018-06-18] MEDS ORDERED: (Doxepin Hcl [Doxepin Hcl] 10 MG) PO SCH (21:00)
[2018-06-18] MEDS: Niacin (24 HR) 500 MG TAB.ER.24H PO SCH (22:09)
[2018-06-19] MEDS: Ipratropium/Albuterol Neb 3 ML IH SCH ×2 (04:19→10:18)
[2018-06-19] MEDS: Piperacillin/Tazobactam 3.375 GM in 0.9 % Sodium Chloride Mini Bag 100 ML IVPB SCH (05:11)
[2018-06-19] MEDS: MethylPREDNISolone 40 MG/ML VIAL IVP SCH ×2 (05:11→11:57)
[2018-06-19] MEDS: OXYCODONE Oral CONC 10 MG/0.5 ML ORAL.SYG SL PRN ×2 (05:12→14:32)
[2018-06-19] MEDS: *HR* Heparin 5,000 UNIT/ML VIAL SQ SCH (05:25)
[2018-06-19] MEDS: Promethazine/Codeine Oral Sryup 5 ML UDC PO PRN ×2 (05:30→13:28)
[2018-06-19] MEDS: Gabapentin 300 MG CAPSULE PO SCH ×2 (07:55→14:09)
[2018-06-19] MEDS: rOPINIRole 1 MG TABLET PO SCH ×2 (07:55→14:09)
[2018-06-19] MEDS: Carbidopa/Levodopa 25/100 TABLET PO SCH ×2 (07:56→14:09)
[2018-06-19] MEDS: Insulin LISPRO 300 UNITS/3 ML VIAL SQ SCH ×2 (07:57→11:57)
[2018-06-19] MEDS: (Cevimeline Hcl [Evoxac] 30 MG) PO SCH ×2 (07:57→14:10)
[2018-06-19] MEDS ORDERED: Cyanocobalamin (B-12) 1,000 MCG TABLET PO SCH (09:00)
--- NOTE | 2018-06-19 09:30 | Electrocardiograph Report ---
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
[2018-06-19] MEDS: *HR* Morphine 2 MG/ML SYRINGE IVP PRN (10:03)
[2018-06-19] MEDS: (Fluticasone/Vilanterol [Breo Ellipta 100-25 Mcg Inh]) IH SCH (10:19)
[2018-06-19 11:47] VITALS: BP 147/89
[2018-06-19] MEDS: Azithromycin 500 MG in D5% in Water 250 ML IVPB SCH (12:57)
[2018-06-19 14:18] LABS: Appearance of Body Fluid Slightly Hazy (Clear); Volume of Body Fluid 20 mL
--- NOTE | 2018-06-19 14:44 | Discharge Summary ---
- NOTES TO OUTPATIENT PROVIDER Notes to Outpatient Provider: Patient with a history of COPD, tracheomalacia, hypertension, hyperlipidemia, Parkinson disease was hospitalized here for acute COPD exacerbation worsened due to his underlying tracheomalacia. Patient was evaluated by pulmonology. He was treated with bronchodilators, steroids and O2 supplementation. He then underwent bronchoscopy yesterday. Since then his symptoms have significantly improved. He is now doing much better and is clinically stable for discharge home. He will follow up with pulmonology and with [facility] where he is being managed for tracheomalacia. He will be discharged on a short course of antibiotics and steroid taper. Patient also had elevated blood sugars and have an A1c of 6.7%. He has been provided with information about diabetes and will be started on metformin. Orders not resulted at time of discharge: Pending orders 06/15/18 06:03 Culture,Blood [BC] Stat 06/15/18 12:31 Culture,Sputum with Gram Stain [RM] Routine 06/16/18 13:13 Respiratory Infection Panel [MOLMIC] Stat 06/18/18 AFB Culture, Respiratory [TB] Routine AFB Smear [TB] Routine Culture,Respiratory [RM] Routine Fungal Culture [MYC] Routine Herpes Simplex PCR Body Fl Routine 06/18/18 08:58 Cytology [PTH] Routine Date of Encounter: 06/19/18 Time of Encounter: 14:41 - Discharge Diagnosis (1) COPD (chronic obstructive pulmonary disease) Priority: Primary Status: Chronic Qualifiers: COPD type: COPD with acute exacerbation Qualified Code(s): J44.1 - Chronic obstructive pulmonary disease with (acute) exacerbation (2) Hyperlipidemia Priority: Secondary Status: Chronic Qualifiers: Hyperlipidemia type: mixed hyperlipidemia Qualified Code(s): E78.2 - Mixed hyperlipidemia (3) Parkinson's disease Priority: Secondary Status: Chronic (4) Hypertension Priority: Secondary Status: Chronic Qualifiers: Hypertension type: essential hypertension Qualified Code(s): I10 - Essential (primary) hypertension (5) Tracheomalacia Priority: Secondary Status: Chronic (6) Chest pain Priority: Secondary Status: Acute Qualifiers: Chest pain type: intercostal pain Qualified Code(s): R07.82 - Intercostal pain (7) DVT prophylaxis Priority: Secondary Status: Acute (8) Type 2 diabetes mellitus Priority: Secondary Status: Chronic Qualifiers: Diabetes mellitus intermediate designer insulin use: without [facility] use Diabetes mellitus complication status: with hyperglycemia Qualified Code(s): E11.65 - Type 2 diabetes mellitus with hyperglycemia Hospital course: Mr. Ann is a 62 year old male Patient with a history of COPD, tracheomalacia, hypertension, hyperlipidemia, Parkinson disease was hospitalized here for acute COPD exacerbation worsened due to his underlying tracheomalacia. Patient was evaluated by pulmonology. He was treated with bronchodilators, steroids and O2 supplementation. He then underwent bronchoscopy yesterday. Since then his symptoms have significantly improved. He is now doing much better and is clinically stable for discharge home. He will follow up with pulmonology and with [facility] where he is being managed for tracheomalacia. He will be discharged on a short course of antibiotics and steroid taper. Patient also had elevated blood sugars and have an A1c of 6.7%. He has been provided with information about diabetes and will be started on metformin. Discharge discussed with: patient - Time Spent with Patient Total time spent providing and/or coordinating discharge services: Time spent: Greater than 30 minutes (35 min) - Discharge Medications Prescriptions: New Promethazine/Codeine [Phenergan/Codeine] 10 ml PO Q6HR PRN 5 Days #45 udc PRN Reason: Cough Benzonatate [Tessalon] 200 mg PO TID PRN #30 capsule PRN Reason: Cough Doxycycline Hyclate 100 mg PO BID #10 tablet predniSONE [PredniSONE] 10 mg PO DAILY 12 Days #30 tablet metFORMIN [Glucophage] 500 mg PO BIDWM #60 tablet Continue Atorvastatin Calcium [Lipitor] 20 mg PO DAILY Tizanidine HCl 8 mg PO HS Gabapentin [Neurontin] 600 mg PO TID Niacin (24 HR) [Niaspan] 500 mg PO HS Albuterol Sulfate [Proair Hfa] 2 puff IH Q4H PRN PRN Reason: Shortness Of Breath Cevimeline HCl [Evoxac] 10 mg PO TID Lisinopril [Zestril] 5 mg PO DAILY #30 tablet Carbidopa/Levodopa [Carbidopa-Levo 25-100 mg Odt] 1 each PO TID Fluticasone/Vilanterol [Breo Ellipta 100-25 Mcg INH] 1 each IH DAILY Metoprolol [Lopressor] 25 mg PO DAILY diazePAM [Valium] 5 mg PO Q8H PRN PRN Reason: CHEST TIGHTNESS Doxepin HCl 10 mg PO HS HYDROcodone/Acet 5/325 mg [[place] 5-325 mg] 1 tab PO Q6H PRN PRN Reason: Pain Ropinirole HCl [Requip Xl] 4 mg PO HS Cyanocobalamin (Vitamin B-12) [Vitamin B12] 1,000 mcg PO DAILY Home Medications: Albuterol Sulfate [Proair Hfa] 2 puff IH Q4H PRN 07/24/16 [History] Atorvastatin Calcium [Lipitor] 20 mg PO DAILY 07/24/16 [History] Gabapentin [Neurontin] 600 mg PO TID 07/24/16 [History] Niacin (24 HR) [Niaspan] 500 mg PO HS 07/24/16 [History] Tizanidine HCl 8 mg PO HS 07/24/16 [History] Cevimeline HCl [Evoxac] 10 mg PO TID 12/14/17 [History] Lisinopril [Zestril] 5 mg PO DAILY #30 tablet 12/14/17 [Rx] Carbidopa/Levodopa [Carbidopa-Levo 25-100 mg Odt] 1 each PO TID 06/15/18 [History] Fluticasone/Vilanterol [Breo Ellipta 100-25 Mcg INH] 1 each IH DAILY 06/15/18 [History] Metoprolol [Lopressor] 25 mg PO DAILY 06/15/18 [History] Cyanocobalamin (Vitamin B-12) [Vitamin B12] 1,000 mcg PO DAILY 06/16/18 [History] Doxepin HCl 10 mg PO HS 06/16/18 [History] HYDROcodone/Acet 5/325 mg [[place] 5-325 mg] 1 tab PO Q6H PRN 06/16/18 [History] Ropinirole HCl [Requip Xl] 4 mg PO HS 06/16/18 [History] diazePAM [Valium] 5 mg PO Q8H PRN 06/16/18 [History] Benzonatate [Tessalon] 200 mg PO TID PRN #30 capsule 06/19/18 [Rx] Doxycycline Hyclate 100 mg PO BID #10 tablet 06/19/18 [Rx] Promethazine/Codeine [Phenergan/Codeine] 10 ml PO Q6HR PRN 5 Days #45 udc 06/19/18 [Rx] metFORMIN [Glucophage] 500 mg PO BIDWM #60 tablet 06/19/18 [Rx] predniSONE [PredniSONE] 10 mg PO DAILY 12 Days #30 tablet 06/19/18 [Rx] Allergies/Adverse Reactions: Allergy/AdvReac Type Severity Reaction Status Date / Time [place] Allergy See Verified 06/16/18 13:39 Comments Nickel Allergy See Verified 06/16/18 13:39 Comments Date of admission: 06/17/18 17:12 Primary care physician: Africa Alarcon CNP Consults: 06/15/18 09:06 Consult to Nutrition [CONS] Routine Comment: Consulting Provider: NUTRITION Reason for Dietary Consult: Other 06/15/18 12:31 Consult to Pulmonology [CONS] Routine Consulting Provider: [facility] Reason for Consult: Patient F/U With Pulm as an outpatient and would like to be re-evaluated as inpatient. Time Notified: 12:36 Call Completed: No 06/15/18 12:32 Consult to Nurse Navigator [CONS] Routine Comment: 06/18/18 08:13 Consult to Diabetes Education [CONS] Routine Comment: Reason for Consult: New diabetes 06/18/18 10:55 Consult to Respiratory Therapy [CONS] Routine Reason for Consult: Accupap Call Completed: Yes Discharging clinician: Brandon Lincoln Anticipated date of discharge: 06/19/18 - Constitutional Vitals: Temp Pulse Resp BP Pulse Ox 97.8 F 71 20 147/89 90 06/19/18 03:56 06/19/18 11:40 06/19/18 11:40 06/19/18 11:40 06/19/18 11:40 General appearance: Present: A&O X 3, pleasant, answers questions appropriately Exam: . - Respiratory Respiratory exam: Present: prolonged expiratory phase, rhonchi. Absent: acce ssory muscle use, rales - Cardiovascular Cardiovascular exam: Present: RRR, +S1, +S2. Absent: diastolic murmur, gallop, rubs, systolic murmur - GI/Abdominal GI/Abdominal exam: Present: normal bowel sounds, soft, no peritoneal signs. Absent: distended, tenderness - Extremities Exam Extremities exam: Present: warm, radial pulses palpable and symmetrical. Absent: calf tenderness, cyanotic, pedal edema - Patient Status Disposition: Home, Self-Care Condition: Fair Functional capacity at discharge: independent ambulation Overall status at discharge: patient is progressing back to baseline - Discharge Instructions Instructions: Chronic Obstructive Pulmonary Disease (DC), Chest Pain (DC), Diabetes Mellitus Type 2 in Adults (DC) Follow Up With: Africa Alarcon CNP [Primary Care Provider] - 06/30/18 2:20 pm Henny Lang MD [Partnered Physician] - 06/25/18 9:45 am - Diet and Activity Activity: increase activity as tolerated Diet: diabetic diet, low fat, low cholesterol, low salt diet
--- NOTE | 2018-06-20 02:08 | Pulmonology Progress Note ---
Date of Encounter: 06/19/18 Time of Encounter: 13:00 Assessment and Plan (1) COPD (chronic obstructive pulmonary disease) Status: Chronic Continue current regimen of bronchitis, steroids and antibiotics . On discharge patient will need nebulizer duoneb , 2 week steroid taper to complete 7 days course of antibiotics Qualifiers: COPD type: COPD with acute exacerbation Qualified Code(s): J44.1 - Chronic obstructive pulmonary disease with (acute) exacerbation (2) Tracheomalacia Status: Chronic Patient had the diagnosis of tracheal bronchomalacia the last bronchoscopy in 2016 since patient is a very anxious person will do with MAC with minimal sedation to start with to see for expiratory dynamic airway collapse. Most likely this due to EDAC type usually did do well with CPAP therapy patient says initially the CPAP therapy helped not helping anymore. Before discharge. To get a 6 minute walk test to look for exercise oxygen requirements and also we need to get him a flutter valve or any airway clearance is a device on discharge. After that I will see him in in the clinic in 2 weeks. The most definitive treatment for tracheal bronchial malacia is tracheal bronchial plasty before that he needs to have a trial of stent TM is severe . We will do monitored anesthesia care with minimal sedation to sedate for expiratory induced dynamic collapse. To keep nothing by mouth after midnight. 06/18 patient underwent bronchoscopy today showed 80% had a collapse of bowel the main marce almost 80% on the right mainstem and the left mainstem. Patient was able to cough up secretions that is a good sign. Patient is going to get evaluated in [facility] will try first adequately addressed therapy, CPAP therapy suspicious with [facility] Dr. guzman in the CPAP or changed to BiPAP regimen. To have her establish local engineering manager we will schedule him in the clinic in 2-3 weeks. 06/19 patient to continue CPAP as patient is not qualified for BiPAP patient is going to be seen by [facility] engineering manager then I will see him. Subjective Principal diagnosis: COPD exacerbation with tracheal bronchomalacia Interval history: Patient presented with COPD exacerbation complicated by tracheal bronchomalacia, and not able to cough out the secretions.. Patient was willing to undergo bronchoscopy. 06/18 patient had his bronchoscopy showed evidence of tracheal bronchomalacia with 80% collapse of the Advair and expiration patient had secretion most in the left lower lobe and some in the left upper lobe very minimal on the right lobar airways. The bronchoalveolar lavage sample was sent for microbiologic review. Otherwise patient recovered well after the bronchoscopy. 06/19 patient had bronchoscopy which showed evidence of tracheal and bronchomalacia. Most of the changes are seen and trachea and also both right mainstem and left mainstem. Objective PUL Vital signs: Last Vital Signs Temp 97.8 F 06/19/18 03:56 Pulse 71 06/19/18 11:40 Resp 20 06/19/18 11:40 BP 147/89 06/19/18 11:40 Pulse Ox 90 06/19/18 11:40 General appearance: no acute distress Effort: normal Auscultation: bilateral: diminished breath sounds Cardiovascular: regular rate and rhythm Gastrointestinal: normoactive bowel sounds Extremities: no edema Musculoskeletal: no deformities Gait: normal gait normal mental status, non-focal exam anxious Results - Laboratory Findings CBC and BMP: 06/17/18 05:51 06/17/18 05:51 ABG ABG pH 7.41 pH Units (7.32-7.45) 06/18/18 14:38 ABG pCO2 36 mmHg (35-45) 06/18/18 14:38 ABG pO2 73 mmHg (85-104) L 06/18/18 14:38 ABG O2 Saturation 95 % (95-98) 06/18/18 14:38 PT/INR, D-dimer PT 10.6 Seconds (9.4-12.1) 06/16/18 06:09 D-Dimer 1161 ng/mLFEU (0-500) H 06/15/18 03:45 Abnormal lab findings: Abnormal lab results WBC 15.0 K/mcL (4.3-11.1) H 06/17/18 05:51 Neutrophils # 14.1 K/mcL (1.6-8.9) H 06/17/18 05:51 Lymphocytes # 0.4 K/mcL (0.6-4.6) L 06/17/18 05:51 D-Dimer 1161 ng/mLFEU (0-500) H 06/15/18 03:45 ABG pO2 73 mmHg (85-104) L 06/18/18 14:38 Carbon Dioxide 22 mEq/L (23-29) L 06/17/18 05:51 Glucose 326 mg/dL (70-105) H 06/17/18 05:51 POC Glucose 204 mg/dL (70-99) H 06/19/18 11:43 Hemoglobin A1c 6.7 % (-5.6) H 06/17/18 05:51 Phosphorus 2.6 mg/dL (2.7-4.5) L 06/16/18 06:09 AST 12 Units/L (13-39) L 06/16/18 06:09 Fluid Appearance Slightly Hazy (Clear) A 06/18/18 Unknown - Microbiology Findings Microbiology Findings: Microbiology, Last 48 Hours 06/18/18 Unknown Respiratory Culture - Preliminary Left Lower Lobe Lung 06/18/18 Unknown Fungal Culture - Preliminary Left Lower Lobe Lung Culture is incubating. - Clinical Findings Intake & Output: Intake & Output 06/19/18 06/19/18 06/20/18 15:59 23:59 07:59 Intake Total 820 / 820 Balance 820 / 820 Consult Discharge Plan - Plan Instructions: Benzonatate (By mouth), Doxycycline (By mouth), Prednisone (By mouth), Metformin (By mouth), Chest Pain (DC), Diabetes Mellitus Type 2 in Adults (DC), Chronic Obstructive Pulmonary Disease (DC) Referrals: Africa Alarcon CNP [Primary Care Provider] - 06/30/18 2:20 pm Henny Lang MD [Partnered Physician] - 06/25/18 9:45 am Prescriptions: Promethazine/Codeine [Phenergan/Codeine] 10 ml PO Q6HR PRN 5 Days #45 udc PRN Reason: Cough Benzonatate [Tessalon] 200 mg PO TID PRN #30 capsule PRN Reason: Cough Doxycycline Hyclate 100 mg PO BID #10 tablet metFORMIN [Glucophage] 500 mg PO BIDWM #60 tablet predniSONE [PredniSONE] 10 mg PO DAILY 12 Days #30 tablet
[2018-06-20] MEDS ORDERED: predniSONE 20 MG TABLET PO SCH (09:00)
== END 2018-06-19 16:05 | disposition home or self-care (01) | DRG 192 ==
LOC: 2NENU 03:20 → EMEROOARM 03:20 → SUATTDRO 07:53 → 2NENU 08:20
PROVIDERS: ADMIT Internal Medicine; ATTEND Internal Medicine

== ENCOUNTER 2019-04-15 23:30 | Inpatient (IN) ==
[2019-04-15] MEDS ORDERED: Ondansetron 4 MG/2 ML VIAL IVP ONE (23:54)
[2019-04-16 00:02] LABS: Bilirubin,Urine Small (Negative); Blood,Urine Negative (Negative); Clarity,Urine Clear (Clear); Color,Urine Dark Yellow (Yellow); Glucose,Urine (UA) Normal (Normal); Ketones,Urine Trace mg/dL (Negative); Leukocyte Esterase,Urine Negative (Negative); Nitrite,Urine Negative (Negative); Protein,Urine 30 mg/dL (Neg-Trace); Specific Gravity,Urine > 1.030 (1.010-1.025); Urobilinogen,Urine Normal (Normal)
[2019-04-16 00:03] LABS: Bacteria,Urine None Seen per hpf (None-Few); Hyaline Casts,Urine None Seen per lpf (None-Few); RBC,Urine 0-3 per hpf (0-3); Squamous Epithelial Cell,Urine Moderate per lpf (None-Few); WBC,Urine 0-3 per hpf (0-3)
[2019-04-16] MEDS ORDERED: *HR* FentaNYL (PF) 100 MCG/2 ML VIAL IVP ONE (00:11)
[2019-04-16 00:34] LABS: Basophils # 0.1 K/mcL (0.0-0.2); Basophils % 0.3 %; Eosinophils % 0.1 %; Hematocrit 53.2 % (37.5-50.1); Hemoglobin 18.7 g/dL (12.9-16.9); Immature Granulocytes % 0.3 % (0-4); Lymphocytes # 1.4 K/mcL (0.6-4.6); Lymphocytes % 7.7 %; Mean Corpuscular HGB Conc 35.2 g/dL (31.6-35.5); Mean Corpuscular Hemoglobin 28.7 pg (28.0-33.3); Mean Corpuscular Volume 81.6 fL (83.0-100.0); Mean Platelet Volume 11.5 fL (9.4-12.4); Monocytes # 0.8 K/mcL (0.0-1.3); Monocytes % 4.7 %; Neutrophils # 15.4 K/mcL (1.6-8.9); Platelet Count 258 K/mcL (140-400); Red Blood Count 6.52 M/mcL (4.19-5.50); Red Cell Distribution Width 13.2 % (11.5-14.5); Segmented Neutrophils % 86.9 %; White Blood Count 17.7 K/mcL (4.3-11.1)
[2019-04-16 01:00] LABS: Alanine Aminotransferase 5 Units/L (7-52); Albumin 4.6 g/dL (3.5-5.7); Albumin/Globulin Ratio 1.7 (1.1-2.2); Alkaline Phosphatase 162 Units/L (34-104); Aspartate Amino Transferase 17 Units/L (13-39); BUN/Creatinine Ratio 24 (6-26); Bilirubin,Direct 0.2 mg/dL (0.0-0.2); Bilirubin,Indirect 0.8 mg/dL (0.0-1.0); Blood Urea Nitrogen 22 mg/dL (8-23); Carbon Dioxide 18 mEq/L (23-29); Chloride 105 mEq/L (98-107); Globulin 2.7 g/dL (2.4-3.5); Glucose 189 mg/dL (70-105); Lipase 26 Units/L (11-82); Osmolality,Calculated 290 (280-300); Potassium 4.3 mEq/L (3.5-5.1); Sodium 136 mEq/L (136-145); Total Protein 7.3 g/dL (6.4-8.9); eGFR For African Americans > 60 (> 60); eGFR For Non-African Americans > 60 (> 60)
[2019-04-16] MEDS ORDERED: *HR* HYDROmorphone (PF) 1 MG/ML SYRINGE IVP STA (01:37)
[2019-04-16] MEDS ORDERED: Ondansetron 4 MG/2 ML VIAL IVP ONE (01:37)
[2019-04-16] MEDS ORDERED: MetroNIDAZOLE 500 MG/100 ML 500 MG/100 ML BAG IVPB ONE (01:44)
[2019-04-16] MEDS ORDERED: cefTRIAXone 1,000 MG in 0.9 % Sodium Chloride Mini Bag 100 ML IVPB ONE (01:44)
[2019-04-16] MEDS ORDERED: 0.9 % Sodium Chloride 1,000 ML IVC ONE (02:09)
[2019-04-16] MEDS ORDERED: Naloxone 0.4 MG/ML INJ IVP PRN ×2 (02:57→04:06)
[2019-04-16] MEDS ORDERED: 0.9 % Sodium Chloride 1,000 ML IVC SCH (03:00)
[2019-04-16] MEDS ORDERED: Morphine Sulfate 2 MG/ML SYRINGE IVP PRN ×2 (03:34→09:54)
[2019-04-16] MEDS ORDERED: Dextrose Gel 15 GM/37.5 ML TUBE PO PRN ×2 (03:43)
[2019-04-16] MEDS ORDERED: D5% in Water 1,000 ML IVC PRN (03:43)
[2019-04-16] MEDS ORDERED: *HR* Dextrose 50 % in Water (Syg) 50 ML SYRINGE IVP PRN (03:43)
[2019-04-16] MEDS: *HR* Promethazine 25 MG/ML VIAL IVP PRN ×3 (05:33→20:51)
[2019-04-16] MEDS: 0.9 % Sodium Chloride 1,000 ML IVC SCH ×2 (05:35→11:32)
[2019-04-16 05:42] LABS: Basophils % 0.2 %; Hemoglobin 19.6 g/dL (12.9-16.9); Immature Granulocytes % 0.4 % (0-4); Lymphocytes # 0.5 K/mcL (0.6-4.6); Lymphocytes % 1.9 %; Mean Corpuscular HGB Conc 33.4 g/dL (31.6-35.5); Mean Corpuscular Hemoglobin 28.1 pg (28.0-33.3); Mean Corpuscular Volume 84.1 fL (83.0-100.0); Mean Platelet Volume 12.1 fL (9.4-12.4); Monocytes # 1.8 K/mcL (0.0-1.3); Monocytes % 7.2 %; Neutrophils # 22.3 K/mcL (1.6-8.9); Platelet Count 254 K/mcL (140-400); Red Blood Count 6.98 M/mcL (4.19-5.50); Red Cell Distribution Width 13.3 % (11.5-14.5); Segmented Neutrophils % 90.3 %; White Blood Count 24.7 K/mcL (4.3-11.1)
[2019-04-16 05:49] LABS: Basophils # 0.1 K/mcL (0.0-0.2)
[2019-04-16 05:51] LABS: Hematocrit 58.7 % (37.5-50.1)
[2019-04-16] MEDS ORDERED: *HR* Heparin 5,000 UNIT/ML VIAL SQ SCH (06:00)
[2019-04-16] MEDS ORDERED: Dicyclomine 20 MG/2 ML AMPUL IM SCH (06:00)
[2019-04-16 06:01] LABS: Alanine Aminotransferase 9 Units/L (7-52); Albumin 4.4 g/dL (3.5-5.7); Albumin/Globulin Ratio 1.7 (1.1-2.2); Alkaline Phosphatase 165 Units/L (34-104); Aspartate Amino Transferase 15 Units/L (13-39); BUN/Creatinine Ratio 23 (6-26); Bilirubin,Total 0.9 mg/dL (0.3-1.0); Blood Urea Nitrogen 27 mg/dL (8-23); Calcium 9.4 mg/dL (8.6-10.3); Carbon Dioxide 20 mEq/L (23-29); Chloride 105 mEq/L (98-107); Globulin 2.6 g/dL (2.4-3.5); Glucose 209 mg/dL (70-105); Osmolality,Calculated 305 (280-300); Sodium 142 mEq/L (136-145); eGFR For African Americans > 60 (> 60); eGFR For Non-African Americans > 60 (> 60)
[2019-04-16] MEDS: Insulin LISPRO 300 UNITS/3 ML VIAL SQ SCH ×3 (06:11→18:22)
[2019-04-16] MEDS: Carbidopa/Levodopa 25/100 TABLET PO SCH ×3 (09:51→20:50)
[2019-04-16] MEDS: cefTRIAXone 1,000 MG in Water for inj. (sterile) 10 ML IVP SCH (09:51)
[2019-04-16] MEDS: MetroNIDAZOLE 500 MG/100 ML 500 MG/100 ML BAG IVPB SCH ×2 (09:51→18:50)
[2019-04-16] MEDS: Ondansetron 4 MG/2 ML VIAL IVP PRN ×3 (10:16→23:55)
[2019-04-16] MEDS ORDERED: Ipratropium/Albuterol Neb 3 ML IH PRN (13:28)
[2019-04-16] MEDS: *HR* HYDROmorphone (PF) 1 MG/ML SYRINGE IVP PRN ×2 (14:43→20:51)
[2019-04-16] MEDS ORDERED: 0.9 % Sodium Chloride 500 ML IVC ONE (15:23)
[2019-04-16 16:25] LABS: Hematocrit 54.8 % (37.5-50.1)
[2019-04-16] MEDS: Dicyclomine 20 MG/2 ML AMPUL IM SCH ×2 (16:49→20:52)
[2019-04-16] MEDS ORDERED: Isovue-370 500 ML BOTTLE IVP ONE (16:49)
[2019-04-16] MEDS ORDERED: REQUIP 4 MG PO SCH (21:00)
[2019-04-17] MEDS: Insulin LISPRO 300 UNITS/3 ML VIAL SQ SCH ×4 (00:16→21:09)
[2019-04-17] MEDS: Dicyclomine 20 MG/2 ML AMPUL IM SCH ×2 (02:05→08:15)
[2019-04-17] MEDS: *HR* HYDROmorphone (PF) 1 MG/ML SYRINGE IVP PRN ×3 (02:05→20:20)
[2019-04-17] MEDS: MetroNIDAZOLE 500 MG/100 ML 500 MG/100 ML BAG IVPB SCH ×3 (02:23→17:02)
[2019-04-17] MEDS: *HR* Promethazine 25 MG/ML VIAL IVP PRN ×3 (03:47→21:47)
[2019-04-17 04:34] LABS: Basophils % 0.2 %; Eosinophils % 0.1 %; Hematocrit 52.8 % (37.5-50.1); Hemoglobin 17.2 g/dL (12.9-16.9); Immature Granulocytes % 0.3 % (0-4); Lymphocytes # 1.1 K/mcL (0.6-4.6); Lymphocytes % 7.1 %; Mean Corpuscular HGB Conc 32.6 g/dL (31.6-35.5); Mean Corpuscular Hemoglobin 28.3 pg (28.0-33.3); Mean Corpuscular Volume 86.8 fL (83.0-100.0); Mean Platelet Volume 11.8 fL (9.4-12.4); Monocytes # 1.2 K/mcL (0.0-1.3); Monocytes % 7.3 %; Neutrophils # 13.5 K/mcL (1.6-8.9); Platelet Count 178 K/mcL (140-400); Red Blood Count 6.08 M/mcL (4.19-5.50); Red Cell Distribution Width 13.7 % (11.5-14.5); White Blood Count 15.9 K/mcL (4.3-11.1)
[2019-04-17 04:49] LABS: INR 1.3; Prothrombin Time 14.2 Seconds (9.4-12.1)
[2019-04-17 04:53] LABS: Magnesium 1.9 mg/dL (1.6-2.6); Phosphorous 2.2 mg/dL (2.7-4.5)
[2019-04-17 04:54] LABS: BUN/Creatinine Ratio 19 (6-26); Blood Urea Nitrogen 21 mg/dL (8-23); Calcium 8.6 mg/dL (8.6-10.3); Carbon Dioxide 25 mEq/L (23-29); Chloride 109 mEq/L (98-107); Glucose 117 mg/dL (70-105); Osmolality,Calculated 298 (280-300); Potassium 3.9 mEq/L (3.5-5.1); Sodium 142 mEq/L (136-145); eGFR For African Americans > 60 (> 60); eGFR For Non-African Americans > 60 (> 60)
[2019-04-17] MEDS: Ondansetron 4 MG/2 ML VIAL IVP PRN ×2 (06:03→17:01)
[2019-04-17] MEDS: cefTRIAXone 1,000 MG in Water for inj. (sterile) 10 ML IVP SCH (08:14)
[2019-04-17] MEDS: Carbidopa/Levodopa 25/100 TABLET PO SCH ×3 (08:14→20:09)
[2019-04-17 14:33] LABS: Hemoglobin 15.9 g/dL (12.9-16.9)
[2019-04-17 20:22] LABS: Hematocrit 45.2 % (37.5-50.1); Hemoglobin 15.5 g/dL (12.9-16.9)
[2019-04-18] MEDS: Insulin LISPRO 300 UNITS/3 ML VIAL SQ SCH ×2 (00:36→07:28)
[2019-04-18] MEDS: MetroNIDAZOLE 500 MG/100 ML 500 MG/100 ML BAG IVPB SCH ×3 (01:28→17:55)
[2019-04-18] MEDS: *HR* HYDROmorphone (PF) 1 MG/ML SYRINGE IVP PRN ×4 (01:32→18:29)
[2019-04-18] MEDS: *HR* Promethazine 25 MG/ML VIAL IVP PRN ×3 (05:13→18:22)
[2019-04-18 07:01] LABS: Basophils # 0.1 K/mcL (0.0-0.2); Basophils % 0.5 %; Eosinophils # 0.1 K/mcL (0.0-0.6); Eosinophils % 0.6 %; Hematocrit 43.7 % (37.5-50.1); Hemoglobin 14.3 g/dL (12.9-16.9); Immature Granulocytes % 0.4 % (0-4); Lymphocytes # 1.4 K/mcL (0.6-4.6); Lymphocytes % 11.5 %; Mean Corpuscular HGB Conc 32.7 g/dL (31.6-35.5); Mean Corpuscular Hemoglobin 28.4 pg (28.0-33.3); Mean Corpuscular Volume 86.9 fL (83.0-100.0); Mean Platelet Volume 11.7 fL (9.4-12.4); Monocytes # 0.9 K/mcL (0.0-1.3); Monocytes % 7.5 %; Neutrophils # 9.6 K/mcL (1.6-8.9); Platelet Count 140 K/mcL (140-400); Red Blood Count 5.03 M/mcL (4.19-5.50); Red Cell Distribution Width 13.6 % (11.5-14.5); Segmented Neutrophils % 79.5 %
[2019-04-18 07:29] LABS: BUN/Creatinine Ratio 15 (6-26); Blood Urea Nitrogen 15 mg/dL (8-23); Calcium 8.4 mg/dL (8.6-10.3); Carbon Dioxide 26 mEq/L (23-29); Chloride 108 mEq/L (98-107); Glucose 97 mg/dL (70-105); Osmolality,Calculated 295 (280-300); Potassium 3.9 mEq/L (3.5-5.1); Sodium 142 mEq/L (136-145); eGFR For African Americans > 60 (> 60); eGFR For Non-African Americans > 60 (> 60)
[2019-04-18] MEDS: cefTRIAXone 1,000 MG in Water for inj. (sterile) 10 ML IVP SCH (07:44)
[2019-04-18] MEDS: Ondansetron 4 MG/2 ML VIAL IVP PRN ×2 (07:44→14:49)
[2019-04-18] MEDS: Carbidopa/Levodopa 25/100 TABLET PO SCH ×3 (07:45→19:49)
[2019-04-18 13:32] LABS: Hematocrit 42.5 % (37.5-50.1); Hemoglobin 14.4 g/dL (12.9-16.9)
[2019-04-18] MEDS ORDERED: Calcium Gluconate 1gm/50mL 1 GM/50 ML BAG IVPB ONE (17:50)
[2019-04-18] MEDS ORDERED: Calcium Gluconate 1,000 MG/10 ML VIAL IVPB ONE (18:00)
[2019-04-18 23:46] LABS: Bilirubin,Urine Small (Negative); Blood,Urine Negative (Negative); Clarity,Urine Clear (Clear); Glucose,Urine (UA) Normal (Normal); Ketones,Urine 80 mg/dL (Negative); Leukocyte Esterase,Urine Small (Negative); Nitrite,Urine Positive (Negative); Protein,Urine 30 mg/dL (Neg-Trace); Specific Gravity,Urine > 1.030 (1.010-1.025); Urobilinogen,Urine Normal (Normal)
[2019-04-18 23:47] LABS: Bacteria,Urine None Seen per hpf (None-Few); Hyaline Casts,Urine None Seen per lpf (None-Few); RBC,Urine 0-3 per hpf (0-3); Squamous Epithelial Cell,Urine Few per lpf (None-Few); WBC,Urine 0-3 per hpf (0-3)
[2019-04-18 23:48] LABS: Color,Urine Dark Yellow (Yellow)
[2019-04-19] MEDS: MetroNIDAZOLE 500 MG/100 ML 500 MG/100 ML BAG IVPB SCH ×3 (01:39→17:52)
[2019-04-19] MEDS: *HR* Promethazine 25 MG/ML VIAL IVP PRN (02:34)
[2019-04-19] MEDS ORDERED: cefTRIAXone 2,000 MG in Water for inj. (sterile) 20 ML IVP SCH (03:00)
[2019-04-19] MEDS: *HR* HYDROmorphone (PF) 1 MG/ML SYRINGE IVP PRN ×3 (07:35→21:21)
[2019-04-19] MEDS: Ondansetron 4 MG/2 ML VIAL IVP PRN ×3 (07:35→17:52)
[2019-04-19] MEDS: Carbidopa/Levodopa 25/100 TABLET PO SCH ×3 (07:35→19:39)
[2019-04-19 08:19] LABS: Basophils % 0.5 %; Eosinophils # 0.1 K/mcL (0.0-0.6); Eosinophils % 1.3 %; Hematocrit 44.4 % (37.5-50.1); Hemoglobin 14.2 g/dL (12.9-16.9); Immature Granulocytes % 0.5 % (0-4); Lymphocytes # 1.1 K/mcL (0.6-4.6); Lymphocytes % 13.8 %; Mean Corpuscular Hemoglobin 28.7 pg (28.0-33.3); Mean Corpuscular Volume 89.7 fL (83.0-100.0); Mean Platelet Volume 11.8 fL (9.4-12.4); Monocytes # 0.5 K/mcL (0.0-1.3); Monocytes % 6.4 %; Platelet Count 127 K/mcL (140-400); Red Blood Count 4.95 M/mcL (4.19-5.50); Red Cell Distribution Width 13.4 % (11.5-14.5); Segmented Neutrophils % 77.5 %; White Blood Count 7.8 K/mcL (4.3-11.1)
[2019-04-19 08:34] LABS: BUN/Creatinine Ratio 13 (6-26); Blood Urea Nitrogen 11 mg/dL (8-23); Calcium 8.4 mg/dL (8.6-10.3); Carbon Dioxide 23 mEq/L (23-29); Chloride 105 mEq/L (98-107); Glucose 118 mg/dL (70-105); Osmolality,Calculated 288 (280-300); Potassium 3.5 mEq/L (3.5-5.1); Sodium 139 mEq/L (136-145); eGFR For African Americans > 60 (> 60); eGFR For Non-African Americans > 60 (> 60)
[2019-04-19 14:25] LABS: Hematocrit 40.2 % (37.5-50.1); Hemoglobin 13.8 g/dL (12.9-16.9)
[2019-04-19] MEDS ORDERED: 0.9 % Sodium Chloride 1,000 ML IVC SCH (14:30)
[2019-04-20] MEDS: *HR* Promethazine 25 MG/ML VIAL IVP PRN ×2 (01:14→09:30)
[2019-04-20] MEDS: MetroNIDAZOLE 500 MG/100 ML 500 MG/100 ML BAG IVPB SCH ×2 (01:15→11:38)
[2019-04-20] MEDS: *HR* HYDROmorphone (PF) 1 MG/ML SYRINGE IVP PRN ×2 (02:54→09:30)
[2019-04-20 05:22] LABS: Basophils # 0.1 K/mcL (0.0-0.2); Basophils % 0.6 %; Eosinophils # 0.1 K/mcL (0.0-0.6); Eosinophils % 1.2 %; Hematocrit 42.6 % (37.5-50.1); Hemoglobin 14.3 g/dL (12.9-16.9); Immature Granulocytes % 0.5 % (0-4); Lymphocytes # 1.2 K/mcL (0.6-4.6); Lymphocytes % 13.9 %; Mean Corpuscular HGB Conc 33.6 g/dL (31.6-35.5); Mean Corpuscular Hemoglobin 28.5 pg (28.0-33.3); Mean Corpuscular Volume 84.9 fL (83.0-100.0); Mean Platelet Volume 11.7 fL (9.4-12.4); Monocytes # 0.6 K/mcL (0.0-1.3); Monocytes % 7.5 %; Neutrophils # 6.4 K/mcL (1.6-8.9); Platelet Count 144 K/mcL (140-400); Red Blood Count 5.02 M/mcL (4.19-5.50); Red Cell Distribution Width 13.1 % (11.5-14.5); Segmented Neutrophils % 76.3 %; White Blood Count 8.4 K/mcL (4.3-11.1)
[2019-04-20 05:53] LABS: BUN/Creatinine Ratio 11 (6-26); Blood Urea Nitrogen 8 mg/dL (8-23); Calcium 8.4 mg/dL (8.6-10.3); Carbon Dioxide 21 mEq/L (23-29); Chloride 105 mEq/L (98-107); Glucose 81 mg/dL (70-105); Osmolality,Calculated 287 (280-300); Potassium 3.4 mEq/L (3.5-5.1); Sodium 140 mEq/L (136-145); eGFR For African Americans > 60 (> 60); eGFR For Non-African Americans > 60 (> 60)
[2019-04-20] MEDS: Carbidopa/Levodopa 25/100 TABLET PO SCH ×2 (09:31→14:29)
[2019-04-20 11:10] LABS: Albumin 3.5 g/dL (3.5-5.7); Albumin/Globulin Ratio 1.7 (1.1-2.2); Bilirubin,Direct 0.2 mg/dL (0.0-0.2); Bilirubin,Indirect 0.4 mg/dL (0.0-1.0); Bilirubin,Total 0.6 mg/dL (0.3-1.0); Globulin 2.1 g/dL (2.4-3.5); Total Protein 5.6 g/dL (6.4-8.9)
[2019-04-20 14:08] VITALS: BP 143/79
[2019-04-20] MEDS: Ondansetron 4 MG/2 ML VIAL IVP PRN (14:30)
== END 2019-04-20 16:36 | disposition home or self-care (01) | DRG 394 ==
LOC: 3ANU 23:30 → EMEROOARM 23:30 → SUATTDRO 04-16 03:39 → 3ANU 04-16 04:13
PROVIDERS: ADMIT Student in an Organized Health Care Education/Training Program; ATTEND Student in an Organized Health Care Education/Training Program

== ENCOUNTER 2021-12-08 23:28 | Observation (INO) ==
[2021-12-09] MEDS ORDERED: Iopamidol - 370 500 ML MLS IVP ONE (01:22)
[2021-12-09 01:36] LABS: Basophils # 0.1 K/mcL (0.0-0.2); Basophils % 0.8 %; Eosinophils % 0.5 %; Hematocrit 47.3 % (37.5-50.1); Hemoglobin 16.1 g/dL (12.9-16.9); Immature Granulocytes % 0.4 % (0-4); Lymphocytes # 1.7 K/mcL (0.6-4.6); Lymphocytes % 22.2 %; Mean Corpuscular Hemoglobin 29.3 pg (28.0-33.3); Mean Platelet Volume 11.2 fL (9.4-12.4); Monocytes # 0.8 K/mcL (0.0-1.3); Monocytes % 10.8 %; Neutrophils # 5.1 K/mcL (1.6-8.9); Platelet Count 223 K/mcL (140-400); Red Cell Distribution Width 13.2 % (11.5-14.5); Segmented Neutrophils % 65.3 %; White Blood Count 7.8 K/mcL (4.3-11.1)
[2021-12-09 01:45] LABS: Prothrombin Time 11.4 Seconds (9.4-12.1)
[2021-12-09 02:01] LABS: Bilirubin,Urine Negative (Negative); Blood,Urine Negative (Negative); Clarity,Urine Clear (Clear); Color,Urine Light-Yellow (Yellow); Glucose,Urine (UA) 30 mg/dL (Normal); Ketones,Urine Negative (Negative); Leukocyte Esterase,Urine Negative (Negative); Mucus,Urine Few per lpf (None-Few); Nitrite,Urine Negative (Negative); Protein,Urine Trace mg/dL (Neg-Trace); RBC,Urine 0-3 per hpf (0-3); Specific Gravity,Urine 1.027 (1.010-1.025); Squamous Epithelial Cell,Urine Few per hpf (None-Few); Urobilinogen,Urine Normal (Normal); WBC,Urine 0-3 per hpf (0-3)
[2021-12-09 02:06] LABS: Activated Partial Thrombo Time 31.2 Seconds (26.0-36.0)
[2021-12-09 02:09] LABS: Amphetamine Screen,Urine Negative ng/mL (Cutoff=1000); Barbiturate Screen,Urine Negative ng/mL (Cutoff=200); Benzodiazepines Screen,Urine Positive ng/mL (Cutoff=200); Cannabinoid Screen,Urine Negative ng/mL (Cutoff = 50); Cocaine Screen,Urine Negative ng/mL (Cutoff= 300); Opiate Screen,Urine Negative ng/mL (Cutoff=300); Phencyclidine Screen,Urine Negative ng/mL (Cutoff=25)
[2021-12-09 02:10] LABS: Alanine Aminotransferase 5 Units/L (7-52); Albumin 4.3 g/dL (3.5-5.7); Albumin/Globulin Ratio 1.7 (1.1-2.2); Alkaline Phosphatase 136 Units/L (34-104); Aspartate Amino Transferase 12 Units/L (13-39); BUN/Creatinine Ratio 18 (6-26); Bilirubin,Direct 0.1 mg/dL (0.0-0.2); Bilirubin,Indirect 0.6 mg/dL (0.0-1.0); Bilirubin,Total 0.7 mg/dL (0.3-1.0); Blood Urea Nitrogen 19 mg/dL (8-23); Carbon Dioxide 25 mEq/L (23-29); Chloride 106 mEq/L (98-107); Globulin 2.5 g/dL (2.4-3.5); Glucose 101 mg/dL (70-105); Osmolality,Calculated 292 (280-300); Potassium 3.7 mEq/L (3.5-5.1); Sodium 140 mEq/L (136-145); Total Protein 6.8 g/dL (6.4-8.9); Troponin I < 0.03 ng/mL (< 0.04)
[2021-12-09 02:34] LABS: Thyroid Stimulating Hormone 3.477 mcIU/mL (0.340-5.600)
[2021-12-09 02:36] LABS: VBG HCO3 27 mEq/L (21-27); VBG PCO2 47 mmHg (41-51); VBG PH 7.37 pH Units (7.32-7.42); VBG PO2 44 mmHg (25-50)
[2021-12-09] MEDS ORDERED: Naloxone 0.4 MG/ML INJ IVP PRN (05:42)
[2021-12-09] MEDS ORDERED: Acetaminophen 325 MG TABLET PO PRN (06:00)
[2021-12-09] MEDS: Carbidopa/Levodopa 25/100 TABLET PO SCH ×3 (08:54→20:00)
[2021-12-09] MEDS ORDERED: NON-FORMULARY MEDICATION 1 EACH EACH (Fluticasone/Vilanterol [Breo Ellipta 100-25 Mcg Inh] IH PRN (13:48)
[2021-12-09] MEDS ORDERED: Pregabalin 50 MG CAPSULE PO SCH ×2 (21:00)
[2021-12-09] MEDS ORDERED: Niacin (24 HR) 500 MG TAB.ER.24H PO SCH (21:00)
[2021-12-09] MEDS: Budesonide/Formoterol 160/4.5 1 PUFF INH IH SCH (23:00)
[2021-12-10 07:01] VITALS: BP 158/80; PULSE 53; TEMP 98.1
[2021-12-10] MEDS: Carbidopa/Levodopa 25/100 TABLET PO SCH (07:57)
[2021-12-10] MEDS ORDERED: Cyanocobalamin (B-12) 1,000 MCG TABLET PO SCH (09:00)
[2021-12-10] MEDS ORDERED: Metoprolol XL (24 HR) Succ 25 MG TAB.ER.24H PO SCH (09:00)
[2021-12-10] MEDS ORDERED: Pregabalin 50 MG CAPSULE PO SCH ×2 (09:00)
[2021-12-10] MEDS ORDERED: Tiotropium 10 INH DOSE IH SCH (10:00)
[2021-12-10] MEDS: Budesonide/Formoterol 160/4.5 1 PUFF INH IH SCH (11:11)
[2021-12-10 11:26] VITALS: O2SAT 96
== END 2021-12-10 12:15 | disposition home or self-care (01) ==
LOC: 3BNU 23:28 → EMEROOARM 23:28 → SUATTDRO 12-09 05:44 → 3BNU 12-09 05:58
PROVIDERS: ADMIT Internal Medicine; ATTEND Student in an Organized Health Care Education/Training Program